=== PATIENT | female | born 1960 | race Caucasian/White ===

== ENCOUNTER 2017-06-24 19:22 | Inpatient (IN) | payer MEDICARE, MEDICAID ==
[2017-06-24 19:23] VITALS: BMI 33.0
[2017-06-24] MEDS ORDERED: Albuterol-Ipratrop 3 mg / 0.5 (3 ml) UD ONE (19:36)
[2017-06-24] MEDS: Albuterol-Ipratrop 3 mg / 0.5 (3 ml) UD IH SCH ×4 (19:47→23:51)
[2017-06-24 19:56] LABS: BASO # 0.03 K/mm3 (0.0-2.0); BASO % 0.2 % (0.0-3.0); EOS % 0.2 % (1.5-5.0); GRAN # 8.75 (1.4-6.5); GRAN % 70.3 % (50.0-68.0); HEMATOCRIT 39.9 % (36.0-48.0); LYMPH # 2.9 (1.2-3.4); LYMPH % 23.2 % (22.0-35.0); MEAN CELL VOLUME 93.4 fl (80.0-105.0); MEAN CORPUSCULAR HEMOGLOBIN 29.7 pg (25.0-35.0); MEAN CORPUSCULAR HGB CONC 31.8 g/dl (31.0-37.0); MEAN PLATELET VOLUME 8.9 fl (7.0-11.0); MONO # 0.8 (0.1-0.6); MONO % 6.1 % (1.0-6.0); RED CELL DISTRIBUTION WIDTH 14.4 % (11.5-14.5); WHITE BLOOD COUNT 12.4 10^3/ul (4.5-11.0)
[2017-06-24 20:04] LABS: ALB/GLOB RATIO 1.3 (1.1-1.8); ALKALINE PHOSPHATASE 72 U/L (38-126); ALT/SGPT 54 U/L (7-56); AST/SGOT 28 U/L (14-36); BILIRUBIN,TOTAL 0.4 mg/dL (0.2-1.3); BLOOD UREA NITROGEN 18 mg/dL (7-21); CALCIUM 9.6 mg/dL (8.4-10.5); CARBON DIOXIDE 25 mmol/L (21-33); CHLORIDE 106 mmol/L (98-107); GFR AFRICAN-AMERICAN > 60; GLUCOSE,RANDOM 137 mg/dL (70-110); MAGNESIUM 1.9 mg/dL (1.7-2.2); POTASSIUM 3.7 mmol/L (3.6-5.0); SODIUM 142 mmol/L (132-148); TOTAL PROTEIN 6.9 g/dL (5.8-8.3)
--- NOTE | 2017-06-24 20:04 | ED PDOC ---
Arrival/HPI - General Chief Complaint: Respiratory Distress Time Seen by Provider: 06/24/17 19:32 Historian: Patient - History of Present Illness Narrative History of Present Illness (Text): 06/24/17 19:45 A 57 year old female, whose past medical history includes asthma, presents to the emergency department complaining of wheezing, shortness of breath, and cough for a few days. Patient states she is experiencing upper back pain with associated dry cough. She denies of any fever, or any other complaints. PMD: Dr. Ramirez Past Medical History - Provider Review Nursing Documentation Reviewed: Yes - Infectious Disease Hx of Infectious Diseases: None - Tetanus Immunization Tetanus Immunization: Unknown - Cardiac Hx Cardiac Disorders: Yes Hx Angina: No Hx Cardiac Arrhythmia: No Hx Congestive Heart Failure: Yes Hx Hypertension: Yes - Pulmonary Hx Respiratory Disorders: Yes Hx Asthma: Yes Hx Sleep Apnea: Yes (CPAP) - Neurological Hx Neurological Disorder: Yes (brain tumor) Hx Dizziness: Yes - HEENT Hx HEENT Disorder: No - Renal Hx Renal Disorder: No - Endocrine/Metabolic Hx Endocrine Disorders: Yes Hx Diabetes Mellitus Type 2: Yes - Hematological/Oncological Hx Blood Disorders: No - Integumentary Hx Dermatological Disorder: No - Musculoskeletal/Rheumatological Hx Musculoskeletal Disorders: Yes (TORN MENISCUS SX) Hx Back Pain: Yes Hx Falls: Yes Hx Herniated Disk: Yes (BULGING DISC L4L5) Hx Osteoarthritis: Yes Hx Unsteady Gait: Yes (CANE WALKER) - Gastrointestinal Hx Gastrointestinal Disorders: Yes (GASTRITIS) - Genitourinary/Gynecological Hx Genitourinary Disorders: No - Psychiatric Hx Psychophysiologic Disorder: Yes Hx Depression: Yes Hx Substance Use: No - Surgical History Hx Cholecystectomy: Yes Hx Hysterectomy: Yes Hx Orthopedic Surgery: Yes (left knee) Other/Comment: bladder - Anesthesia Hx Anesthesia: Yes Hx Anesthesia Reactions: No Hx Malignant Hyperthermia: No - Suicidal Assessment Feels Threatened In Home Enviroment: No Family/Social History - Physician Review Nursing Documentation Reviewed: Yes Family/Social History: No Known Family HX Smoking Status: Current Some Days Smoker Hx Alcohol Use: No Hx Substance Use: No Allergies/Home Meds Allergies/Adverse Reactions: Allergies FISH Allergy (Verified 05/18/16 21:23) RASH strawberry Allergy (Verified 05/18/16 21:23) RASH cranberry Adverse Reaction (Verified 05/18/16 21:23) ITCHING peanut Adverse Reaction (Verified 05/18/16 21:23) RASH Home Medications: Home Meds Medication Instructions Recorded Confirmed Metformin HCl 500 mg PO BID 08/31/13 06/24/17 Simvastatin 40 mg PO DAILY 08/31/13 06/24/17 Acetaminophen/Oxycodone Hydr 1 tab PO Q6 PRN 05/13/16 06/24/17 [Percocet 10/325 mg Tab] Alprazolam [Xanax] 1 tab PO TID 05/13/16 06/24/17 Hydroxyzine Pamoate 50 mg PO PRN PRN 05/13/16 06/24/17 Zolpidem [Ambien] 1 tab PO PRN PRN 05/13/16 06/24/17 Review of Systems - Physician Review All systems were reviewed & negative as marked: Yes - Review of Systems Constitutional: absent: Fevers Respiratory: SOB, Cough (dry cough), Wheezing Musculoskeletal: Back Pain (upper back pain associated with dry cough) Physical Exam Vital Signs Reviewed: Yes Vital Signs Temp Pulse Resp BP Pulse Ox 06/24/17 19:23 98.7 F 98 H 28 H 127/62 100 Temperature: Afebrile Blood Pressure: Normal Pulse: Regular Respiratory Rate: Normal Appearance: Positive for: Well-Appearing Pain Distress: None Mental Status: Positive for: Alert and Oriented X 3 - Systems Exam Head: Present: Atraumatic, Normocephalic Pupils: Present: PERRL Extroacular Muscles: Present: EOMI Conjunctiva: Present: Normal Mouth: Present: Moist Mucous Membranes Neck: Present: Normal Range of Motion Respiratory/Chest: Present: Wheezes (diffused wheezing) Cardiovascular: Present: Regular Rate and Rhythm, Normal S1, S2. No: Murmurs Abdomen: Present: Normal Bowel Sounds. No: Tenderness, Distention, Peritoneal Signs Back: Present: Normal Inspection Upper Extremity: Present: Normal Inspection. No: Cyanosis, Edema Lower Extremity: Present: Normal Inspection. No: Edema Neurological: Present: GCS=15, CN II-XII Intact, Speech Normal Skin: Present: Warm, Dry, Normal Color. No: Rashes Psychiatric: Present: Alert, Oriented x 3, Normal Insight, Normal Concentration Medical Decision Making ED Course and Treatment: 06/24/17 19:51 Impression: 57 year old female with wheezing, shortness of breath, dry cough, and upper back pain associated with dry cough. Plan: -- EKG -- Chest X-ray -- Labs -- Urinalysis -- Duoneb -- Toradol -- Solu-Medrol -- Reassess and disposition Prior Visits: Notes and results from previous visits were reviewed. Patient was last seen in the emergency department on 09/14/2016 for shortness of breath. Patient was d/c home. Progress Notes: EKG: Ordered, reviewed, and independently interpreted the EKG. Rate : 98 BPM Rhythm : NSR Interpretation : No ST-segment elevations or depressions, no T-wave inversions, normal intervals. Comparison : No previous EKG for comparison. 06/24/17 22:08 xr neg as read by me. persistent wheezing, dr baltazar accepts. - Lab Interpretations Lab Results: 06/24/17 19:45 06/24/17 19:45 Lab Results 06/24/17 19:45: Sodium 142, Potassium 3.7, Chloride 106, Carbon Dioxide 25, Anion Gap 15, BUN 18, Creatinine 0.9, Est GFR ( Amer) > 60, Est GFR (Non- Af Amer) > 60, Random Glucose 137 H, Calcium 9.6, Magnesium 1.9, Total Bilirubin 0.4, AST 28, ALT 54, Alkaline Phosphatase 72, Lactate Dehydrogenase 471, Total Creatine Kinase 125, Troponin I < 0.01, Total Protein 6.9, Albumin 3.9, Globulin 3.0, Albumin/Globulin Ratio 1.3 06/24/17 19:45: PT 10.0, INR 0.93, APTT 24.1 06/24/17 19:45: WBC 12.4 H D, RBC 4.27, Hgb 12.7, Hct 39.9, MCV 93.4, MCH 29.7, MCHC 31.8, RDW 14.4, Plt Count 322, MPV 8.9, Gran % 70.3 H, Lymph % (Auto) 23.2 , [place] % (Auto) 6.1 H, Eos % (Auto) 0.2 L, Baso % (Auto) 0.2, Gran # 8.75 H, Lymph # 2.9, [place] # 0.8 H, Eos # 0.0, Baso # 0.03 I have reviewed the lab results: Yes - RAD Interpretation Radiology Orders: 06/24/17 19:36 CHEST PORTABLE [RAD] Stat - Medication Orders Current Medication Orders: Discontinued Medications Albuterol/Ipratropium (Duoneb 3 Mg/0.5 Mg (3 Ml) Ud) 3 ml IH Q15M KANDICE Stop: 06/24/17 20:16 Last Admin: 06/24/17 20:39 Dose: 3 ml Ketorolac Tromethamine (Toradol) 30 mg IVP STAT STA Stop: 06/24/17 19:38 Last Admin: 06/24/17 19:48 Dose: 30 mg MAR Pain Assessment Document 06/24/17 19:48 SC (Rec: 06/24/17 19:48 SC [id number]) Pain Reassessment Is this a pain reassessment? No Sleep Is patient sleeping during reassessment? No Presence of Pain Presence of Pain Yes Pain Scale Used Pain Scale Used Numeric Description Intensity of Pain at present 5 IVP Administration Document 06/24/17 19:48 SC (Rec: 06/24/17 19:48 SC [id number]) Charges for Administration # of IVP Administrations 1 Methylprednisolone (Solu-Medrol) 125 mg IVP STAT STA Stop: 06/24/17 19:38 Last Admin: 06/24/17 19:50 Dose: 125 mg IVP Administration Document 06/24/17 19:50 SC (Rec: 06/24/17 19:50 SC [id number]) Charges for Administration # of IVP Administrations 1 - Scribe Statement The provider has reviewed the documentation as recorded by the Dragan Jamison Provider Scribe Attestation: All medical record entries made by the Dragan were at my direction and personally dictated by me. I have reviewed the chart and agree that the record accurately reflects my personal performance of the history, physical exam, medical decision making, and the department course for this patient. I have also personally directed, reviewed, and agree with the discharge instructions and disposition. Disposition/Present on Arrival - Present on Arrival Any Indicators Present on Arrival: No History of DVT/PE: No History of Uncontrolled Diabetes: No Urinary Catheter: No History of Decub. Ulcer: No History Surgical Site Infection Following: None - Disposition Have Diagnosis and Disposition been Completed?: Yes Diagnosis: Asthma Disposition: HOSPITALIZED Disposition Time: 22:07 Condition: STABLE
[2017-06-24 20:07] LABS: INR 0.93 (0.93-1.08); PARTIAL THROMBOPLASTIN TIME 24.1 Seconds (23.7-30.8)
[2017-06-24 20:19] LABS: TROPONIN I < 0.01 ng/mL
--- NOTE | 2017-06-24 22:26 | CP.PCM.HP ---
<Karl Black - Last Filed: 06/25/17 01:24> History of Present Illness - History of Present Illness History of Present Illness: Chief Complaint Shortness of breath HPI Patient is a 57 year old female with a past medical history of Asthma for which she was intubated in 2014, Chronic Bronchitis, Emphysema, NIDDM, dyslipidemia, [place], brain tumor presents to [facility] on 06/24/17 with complaints of shortness of breath which worsened this evening. Patient states that a week prior she was feeling ill. States that along with shortness of breath, she experienced productive cough with yellow phlegm, sore throat which she states she noted white exudates last week, fevers, chills, nausea, dizziness and weakness. She states that as the week progressed her symptoms also worsened. Patient states that she is not on oxygen at home and takes albuterol for her asthma. Patient denies chest pain, abdominal pain, vomiting, headache. Patient also admits to a baseline cramping of the left calf which has been present for months as well as left breast pain which is being followed up s/p mammography; breast biopsy on at outpatient facility. PMD: Dr. Dumas PSHx: cholecystectomy, hysterectomy, left knee meniscal tear repair, brain tumor excision 2007 Medications: refer to [facility] Allergies: Omeprazole-sob Social Hx: smokes 8 cigarettes daily, social alcohol use, denies illicit drug use Present on Admission - Present on Admission Any Indicators Present on Admission: No Review of Systems - Constitutional Constitutional: Chills, Fever, Malaise, Weakness. absent: Headache - EENT Eyes: absent: Blurred Vision, Change in Vision Ears: absent: Ear Pain, Abnormal Hearing - Breasts Breasts: Pain (left breast) - Cardiovascular Cardiovascular: Dyspnea. absent: Chest Pain - Respiratory Respiratory: Cough, Dyspnea, Wheezing, Excessive Mucous Production (phlegm), Change in Mucous Color (yellow) - Gastrointestinal Gastrointestinal: Nausea. absent: Abdominal Pain, Diarrhea, Vomiting - Genitourinary Genitourinary: absent: Difficulty Urinating, Dysuria - Menstruation Menstruation: Menopausal - Musculoskeletal Musculoskeletal: Arthralgias (left leg) - Neurological Neurological: Dizziness. absent: Headaches - Psychiatric Psychiatric: absent: Anhedonia, Anxiety - Endocrine Endocrine: absent: Fatigue, Palpitations Past Patient History - Infectious Disease Hx of Infectious Diseases: None - Tetanus Immunizations Tetanus Immunization: Unknown - Past Social History Smoking Status: Current Some Days Smoker - CARDIAC Hx Cardiac Disorders: Yes Hx Angina: No Hx Cardia Arrhythmia: No Hx Congestive Heart Failure: Yes Hx Hypertension: Yes - PULMONARY Hx Respiratory Disorders: Yes Hx Asthma: Yes Hx Sleep Apnea: Yes (CPAP) - NEUROLOGICAL Hx Neurological Disorder: Yes (brain tumor) Hx Dizziness: Yes - HEENT Hx HEENT Problems: No - RENAL Hx Chronic Kidney Disease: No - ENDOCRINE/METABOLIC Hx Endocrine Disorders: Yes Hx Diabetes Mellitus Type 2: Yes - HEMATOLOGICAL/ONCOLOGICAL Hx Blood Disorders: No - INTEGUMENTARY Hx Dermatological Problems: No - MUSCULOSKELETAL/RHEUMATOLOGICAL Hx Musculoskeletal Disorders: Yes (TORN MENISCUS SX) Hx Back Pain: Yes Hx Falls: Yes Hx Herniated Disk: Yes (BULGING DISC L4L5) Hx Osteoarthritis: Yes Hx Unsteady Gait: Yes (CANE WALKER) - GASTROINTESTINAL Hx Gastrointestinal Disorders: Yes (GASTRITIS) - GENITOURINARY/GYNECOLOGICAL Hx Genitourinary Disorders: No - PSYCHIATRIC Hx Psychophysiologic Disorder: Yes Hx Depression: Yes Hx Substance Use: No - SURGICAL HISTORY Hx Cholecystectomy: Yes Hx Hysterectomy: Yes Hx Orthopedic Surgery: Yes (left knee) Other/Comment: bladder - ANESTHESIA Hx Anesthesia: Yes Hx Anesthesia Reactions: No Hx Malignant Hyperthermia: No Meds Allergies/Adverse Reactions: Allergies Allergy/AdvReac Type Severity Reaction Status Date / Time FISH Allergy RASH Verified 05/18/16 21:23 strawberry Allergy RASH Verified 05/18/16 21:23 cranberry AdvReac ITCHING Verified 05/18/16 21:23 peanut AdvReac RASH Verified 05/18/16 21:23 Physical Exam - Constitutional Appears: In Acute Distress - Head Exam Head Exam: ATRAUMATIC, NORMAL INSPECTION, NORMOCEPHALIC - Eye Exam Eye Exam: EOMI, Normal appearance - ENT Exam ENT Exam: Mucous Membranes Moist, Normal Exam - Neck Exam Neck exam: Positive for: Normal Inspection - Respiratory Exam Respiratory Exam: Wheezes (b/l upper and lower lobes). absent: Clear to Auscultation Bilateral, NORMAL BREATHING PATTERN - Cardiovascular Exam Cardiovascular Exam: REGULAR RHYTHM, +S1, +S2. absent: Diastolic murmur, Irregular Rhythm, Systolic Murmur - GI/Abdominal Exam GI & Abdominal Exam: Normal Bowel Sounds, Soft - Extremities Exam Extremities exam: Positive for: tenderness (left calf cramps for 2 months) - Back Exam Back exam: NORMAL INSPECTION - Neurological Exam Neurological exam: Alert, CN II-XII Intact, Oriented x3 - Skin Skin Exam: Normal Color, Warm Results - Vital Signs Recent Vital Signs: Last Vital Signs Temp 98.7 F 06/24/17 19:23 Pulse 98 H 06/24/17 19:23 Resp 28 H 06/24/17 19:23 BP 127/62 06/24/17 19:23 Pulse Ox 100 06/24/17 19:23 - Labs Result Diagrams: 06/24/17 19:45 06/24/17 19:45 Assessment & Plan - Assessment and Plan (Free Text) Assessment: Assessment 57 year old female with history of asthma, emphysema, and chronic bronchitis presenting with shortness of breath Plan: Plan 1. Asthma exacerbation - Duonebs - Solu-medrol - NC O2 Cannula - Sputum culture; results pending - CXR; results pending - CBC and CMP for morning labs 2. Acute Bronchitis - WBC count 12.4 - Azithromycin 3. NIDDM - Random glucose 127 - Humalin SC- low - Finger stick q6 4. Left Breast tenderness -Mammography performed prior to ED arrival - F/u visit 06/28 as outpatient <Whit Bird - Last Filed: 06/25/17 01:35> Results - Vital Signs Recent Vital Signs: Last Vital Signs Temp 98.1 F 06/25/17 00:47 Pulse 96 H 06/25/17 00:47 Resp 20 06/25/17 00:47 BP 133/58 L 06/25/17 00:47 Pulse Ox 97 06/24/17 22:17 - Labs Result Diagrams: 06/24/17 19:45 06/24/17 19:45 Labs: Laboratory Results - last 24 hr 06/24/17 22:35 Grp A Beta Strep Ag Negative Attending/Attestation - Attestation I have personally seen and examined this patient.: Yes I have fully participated in the care of the patient.: Yes I have reviewed all pertinent clinical information: Yes Notes (Text): 06/25/17 01:34 Agree with documentation and orders placed.
[2017-06-24] MEDS ORDERED: Azithromycin 500MG/NS 250ml 500 MG/250 ML BAG IVPB STA (23:10)
[2017-06-25] MEDS: Albuterol 0.5% Inhal Sol (2.5 mg/0.5 ml) UD IH SCH ×3 (01:18→19:13)
[2017-06-25] MEDS: Albuterol-Ipratrop 3 mg / 0.5 (3 ml) UD IH SCH (01:20)
[2017-06-25 06:25] LABS: BASO # 0.01 K/mm3 (0.0-2.0); BASO % 0.1 % (0.0-3.0); GRAN # 7.7 (1.4-6.5); GRAN % 89.2 % (50.0-68.0); HEMATOCRIT 38.1 % (36.0-48.0); LYMPH # 0.8 (1.2-3.4); LYMPH % 9.7 % (22.0-35.0); MEAN CELL VOLUME 93.4 fl (80.0-105.0); MEAN CORPUSCULAR HEMOGLOBIN 29.2 pg (25.0-35.0); MEAN CORPUSCULAR HGB CONC 31.2 g/dl (31.0-37.0); MEAN PLATELET VOLUME 8.8 fl (7.0-11.0); MONO # 0.1 (0.1-0.6); RED CELL DISTRIBUTION WIDTH 14.2 % (11.5-14.5); WHITE BLOOD COUNT 8.6 10^3/ul (4.5-11.0)
[2017-06-25 06:52] LABS: ALB/GLOB RATIO 1.3 (1.1-1.8); ALKALINE PHOSPHATASE 69 U/L (38-126); ALT/SGPT 51 U/L (7-56); AST/SGOT 26 U/L (14-36); BILIRUBIN,TOTAL 0.4 mg/dL (0.2-1.3); BLOOD UREA NITROGEN 16 mg/dL (7-21); CALCIUM 9.8 mg/dL (8.4-10.5); CARBON DIOXIDE 26 mmol/L (21-33); CHLORIDE 105 mmol/L (95-110); GFR AFRICAN-AMERICAN > 60; GLUCOSE,RANDOM 262 mg/dL (70-110); POTASSIUM 4.1 mmol/L (3.6-5.0); SODIUM 140 mmol/L (132-148); TOTAL PROTEIN 6.3 g/dL (5.8-8.3)
--- NOTE | 2017-06-25 09:08 | RAD ---
HISTORY: sob COMPARISON: 09/14/2016 FINDINGS: LUNGS: No active pulmonary disease. PLEURA: No significant pleural effusion identified, no pneumothorax apparent. CARDIOVASCULAR: Normal. OSSEOUS STRUCTURES: No significant abnormalities. VISUALIZED UPPER ABDOMEN: Normal. OTHER FINDINGS: None. IMPRESSION: No active disease.
[2017-06-25] MEDS ORDERED: MethylPREDNISolone 40 mg Vial IVP SCH (10:00)
[2017-06-25] MEDS: Insulin Reg-LOW-Coverage SC SCH ×4 (10:56→22:00)
[2017-06-25] MEDS: levoFLOXacin 500 MG TAB PO SCH (14:38)
[2017-06-25] MEDS: MethylPREDNISolone 40 mg Vial IVP SCH (18:36)
[2017-06-25] MEDS: Budesonide 0.25 mg/2 ml Inhal Susp UD IH SCH (19:13)
[2017-06-25 19:55] LABS: URINE BILIRUBIN NEGATIVE (NEGATIVE); URINE BLOOD MODERATE (NEGATIVE); URINE GLUCOSE (UA) NEGATIVE (NEGATIVE); URINE KETONE TRACE mg/dL (NEGATIVE); URINE LEUKOCYTE ESTERASE NEGATIVE Leu/uL (NEGATIVE); URINE PROTEIN NEGATIVE mg/dL (<30 mg/dL); URINE UROBILINOGEN 0.2 E.U./dL (<1 E.U./dL)
[2017-06-25 19:56] LABS: URINE APPEARANCE CLEAR (CLEAR); URINE COLOR YELLOW (YELLOW)
[2017-06-25 20:31] LABS: URINE BACTERIA SMALL (NEG); URINE EPITHELIAL CELLS 0 - 2 /hpf (0-5)
--- NOTE | 2017-06-25 23:03 | CARD ---
APPROVED REPORT EKG Measurement Heart [id number] <Conclusion> Normal sinus rhythm Voltage criteria for left ventricular hypertrophy Cannot rule out Septal infarct, age undetermined Abnormal ECG
[2017-06-26] MEDS: Albuterol 0.5% Inhal Sol (2.5 mg/0.5 ml) UD IH SCH ×4 (06:00→19:38)
[2017-06-26] MEDS: Albuterol 0.083% Inhal Sol (2.5 mg/3 mL) UD INH PRN ×2 (08:15→16:38)
[2017-06-26] MEDS: Budesonide 0.25 mg/2 ml Inhal Susp UD IH SCH ×2 (08:15→19:38)
[2017-06-26] MEDS: levoFLOXacin 500 MG TAB PO SCH (09:05)
[2017-06-26] MEDS: MethylPREDNISolone 40 mg Vial IVP SCH ×2 (09:06→17:16)
[2017-06-26] MEDS: Insulin Reg-LOW-Coverage SC SCH ×4 (09:10→23:02)
--- NOTE | 2017-06-26 10:59 | CP.PCM.PN ---
<TieraCrum Lynne - Last Filed: 06/26/17 11:06> Subjective - Date & Time of Evaluation Date of Evaluation: 06/26/17 Time of Evaluation: 07:56 - Subjective Subjective: Patient seen and examined at bedside. The patient reports feeling better than yesterday. The patient does report some chaffing bilateral groin area. The patient also reports shortness of breath and some wheezing. The patient denies any chest pain, lightheadedness, dizziness, changes in vision, abdominal pain, constipation, or any other complaints. Objective - Vital Signs/Intake and Output Vital Signs (last 24 hours): Temp Pulse Resp BP Pulse Ox 98.2 F 61 18 128/63 61 L 06/26/17 06:00 06/26/17 06:00 06/26/17 06:00 06/26/17 06:00 06/26/17 06:00 Intake and Output: 06/26/17 06/26/17 06:59 18:59 Intake Total 240 Balance 240 - Medications Medications: Current Medications Albuterol Sulfate (Albuterol 0.5% Inhal [place] (2.5 Mg/0.5 Ml) Ud) 2.5 mg IH [id number] [facility] Last Admin: 06/26/17 08:15 Dose: 2.5 mg Albuterol Sulfate (Albuterol 0.083% Inhal [place] (2.5 Mg/3 Ml) Ud) 2.5 mg INH Q2 PRN PRN Reason: Shortness of Breath Last Admin: 06/26/17 08:15 Dose: 2.5 mg Atorvastatin Calcium (Lipitor) 20 mg PO DIN [facility] Last Admin: 06/25/17 18:40 Dose: 20 mg Azithromycin (Zithromax) 500 mg PO DAILY [facility] PRN Reason: Protocol Last Admin: 06/26/17 09:05 Dose: 500 mg Budesonide (Pulmicort Respules) 0.25 mg IH [id number] [facility] Last Admin: 06/26/17 08:15 Dose: 0.25 mg Famotidine (Pepcid) 20 mg IVP DAILY [facility] Last Admin: 06/26/17 09:05 Dose: 20 mg Insulin Human Regular (Humulin R Low) 0 units SC ACHS [facility] PRN Reason: Protocol Last Admin: 06/26/17 09:10 Dose: 2 units Levofloxacin (Levaquin) 500 mg PO DAILY [facility] Last Admin: 06/26/17 09:05 Dose: 500 mg Metformin HCl (Glucophage) 500 mg PO BID [facility] Last Admin: 06/26/17 09:05 Dose: 500 mg Methylprednisolone (Solu-Medrol) 40 mg IVP BID [facility] Last Admin: 06/26/17 09:06 Dose: 40 mg Montelukast Sodium (Singulair) 10 mg PO HS [facility] Last Admin: 06/25/17 21:37 Dose: 10 mg Nystatin (Mycostatin Cream) 1 ea TOP QID [facility] - Labs Labs: 06/25/17 06:15 06/25/17 06:15 PT 10.0 Seconds (9.9-11.8) 06/24/17 19:45 INR 0.93 (0.93-1.08) 06/24/17 19:45 APTT 24.1 Seconds (23.7-30.8) 06/24/17 19:45 - Head Exam Head Exam: ATRAUMATIC, NORMAL INSPECTION, NORMOCEPHALIC - Eye Exam Eye Exam: EOMI, Normal appearance, PERRL. absent: Periorbital tenderness Pupil Exam: NORMAL ACCOMODATION, PERRL. absent: Irregular, Unequal - ENT Exam ENT Exam: Mucous Membranes Moist, Normal Exam, Normal Oropharynx. absent: TM's Normal Bilaterally - Neck Exam Neck Exam: Normal Inspection. absent: Lymphadenopathy, Thyromegaly - Respiratory Exam Respiratory Exam: Rhonchi, Wheezes. absent: Accessory Muscle Use, Chest Wall Tenderness, Clear to Ausculation Bilateral - Cardiovascular Exam Cardiovascular Exam: REGULAR RHYTHM, +S1, +S2 - GI/Abdominal Exam GI & Abdominal Exam: Soft, Normal Bowel Sounds. absent: Tenderness, Hyperactive Bowel Sounds - Extremities Exam Extremities Exam: Full ROM. absent: Joint Swelling, Pedal Edema, Tenderness - Back Exam Back Exam: NORMAL INSPECTION. absent: CVA tenderness (L), CVA tenderness (R), paraspinal tenderness - Neurological Exam Neurological Exam: Alert, Awake, CN II-XII Intact, Normal Gait, Oriented x3 - Psychiatric Exam Psychiatric exam: Normal Affect, Normal Mood - Skin Skin Exam: Dry, Intact, Normal Color. absent: Petechiae, Urticaria Assessment and Plan - Assessment and Plan (Free Text) Assessment: 57 year old female with history of asthma, emphysema, and chronic bronchitis presenting with shortness of breath. Plan: 1. Asthma exacerbation -Continue Duonebs -Continue Solu-medrol -Continue NC O2 Cannula as needed. Patients O2 Sat 96. Will continue to monitor. - Sputum culture; results pending - CXR shows no active disease. - CBC and CMP for morning labs 2. Acute Bronchitis - WBC count 8.6. Trending down. Afebrile - Continue Azithromycin and Levofloxacin 3. NIDDM -Random glucose 228 -Continue Humalin SC- low -Continue Finger stick q6 4. Fungal groin infection -Patient reports new onset chaffing, burning, and redness in the groin area. -Nystatin Cream QID. Will monitor closely. 5. Left Breast tenderness -Mammography performed prior to ED arrival - F/u visit 06/28 as outpatient <Duncan Robertson - Last Filed: 06/26/17 17:49> Objective - Vital Signs/Intake and Output Vital Signs (last 24 hours): Temp Pulse Resp BP Pulse Ox 98.4 F 80 18 96/47 L 61 L 06/26/17 12:00 06/26/17 14:00 06/26/17 12:00 06/26/17 12:00 06/26/17 06:00 Intake and Output: 06/26/17 06/26/17 06:59 18:59 Intake Total 240 Balance 240 - Medications Medications: Current Medications Albuterol Sulfate (Albuterol 0.5% Inhal [place] (2.5 Mg/0.5 Ml) Ud) 2.5 mg IH [id number] [facility] Last Admin: 06/26/17 16:39 Dose: Not Given Albuterol Sulfate (Albuterol 0.083% Inhal [place] (2.5 Mg/3 Ml) Ud) 2.5 mg INH Q2 PRN PRN Reason: Shortness of Breath Last Admin: 06/26/17 16:38 Dose: 2.5 mg Atorvastatin Calcium (Lipitor) 20 mg PO DIN [facility] Last Admin: 06/26/17 17:15 Dose: 20 mg Azithromycin (Zithromax) 500 mg PO DAILY [facility] PRN Reason: Protocol Last Admin: 06/26/17 09:05 Dose: 500 mg Budesonide (Pulmicort Respules) 0.25 mg IH [id number] [facility] Last Admin: 06/26/17 08:15 Dose: 0.25 mg Famotidine (Pepcid) 20 mg IVP DAILY [facility] Last Admin: 06/26/17 09:05 Dose: 20 mg Insulin Human Regular (Humulin R Low) 0 units SC ACHS [facility] PRN Reason: Protocol Last Admin: 06/26/17 17:15 Dose: 3 units Levofloxacin (Levaquin) 500 mg PO DAILY [facility] Last Admin: 06/26/17 09:05 Dose: 500 mg Metformin HCl (Glucophage) 500 mg PO BID [facility] Last Admin: 06/26/17 17:14 Dose: 500 mg Methylprednisolone (Solu-Medrol) 40 mg IVP BID [facility] Last Admin: 06/26/17 17:16 Dose: 40 mg Montelukast Sodium (Singulair) 10 mg PO HS [facility] Last Admin: 06/25/17 21:37 Dose: 10 mg Nystatin (Mycostatin Cream) 1 ea TOP QID [facility] Last Admin: 06/26/17 17:16 Dose: 1 applic - Labs Labs: 06/25/17 06:15 06/25/17 06:15 PT 10.0 Seconds (9.9-11.8) 06/24/17 19:45 INR 0.93 (0.93-1.08) 06/24/17 19:45 APTT 24.1 Seconds (23.7-30.8) 06/24/17 19:45 Attending/Attestation - Attestation I have personally seen and examined this patient.: Yes I have fully participated in the care of the patient.: Yes I have reviewed all pertinent clinical information, including history, physical exam and plan: Yes Notes (Text): 06/26/17 17:40 Patient was seen and examined with medical auditor. Agreed with resident assessment and plan. 57 year old female with acute asthama exacerbation, improving, still wheezing, we will continue IV steroid, Nebulization If she keep improving, we will switch to oral prednisone. Breast mammogram as out patient showed suspicious finding in left out quadrant , patient will need further evaluation of mass including Breast USG/biopsy as out patient. Management plan was discussed in detail with patient Education was provided. 06/26/17 17:48
[2017-06-26] MEDS: Nystatin 100,000 Units/gm Cream(15 gm) TOP SCH ×4 (11:00→22:28)
--- NOTE | 2017-06-26 23:03 | CARD ---
APPROVED REPORT EKG Measurement Heart [id number] [id number] <Conclusion> Normal sinus rhythm with sinus arrhythmia Minimal voltage criteria for LVH, may be normal variant Borderline ECG
[2017-06-27] MEDS: Albuterol 0.5% Inhal Sol (2.5 mg/0.5 ml) UD IH SCH ×3 (01:12→15:18)
[2017-06-27 07:22] LABS: BASO # 0.01 K/mm3 (0.0-2.0); BASO % 0.1 % (0.0-3.0); GRAN # 13.16 (1.4-6.5); GRAN % 78.7 % (50.0-68.0); HEMATOCRIT 39.8 % (36.0-48.0); LYMPH # 2.7 (1.2-3.4); MEAN CELL VOLUME 93.2 fl (80.0-105.0); MEAN CORPUSCULAR HEMOGLOBIN 29.5 pg (25.0-35.0); MEAN CORPUSCULAR HGB CONC 31.7 g/dl (31.0-37.0); MEAN PLATELET VOLUME 8.7 fl (7.0-11.0); MONO # 0.9 (0.1-0.6); MONO % 5.2 % (1.0-6.0); RED CELL DISTRIBUTION WIDTH 13.9 % (11.5-14.5); WHITE BLOOD COUNT 16.7 10^3/ul (4.5-11.0)
[2017-06-27 07:34] LABS: ALB/GLOB RATIO 1.3 (1.1-1.8); ALKALINE PHOSPHATASE 68 U/L (38-126); ALT/SGPT 51 U/L (7-56); AST/SGOT 21 U/L (14-36); BILIRUBIN,TOTAL 0.3 mg/dL (0.2-1.3); BLOOD UREA NITROGEN 21 mg/dL (7-21); CALCIUM 9.8 mg/dL (8.4-10.5); CARBON DIOXIDE 30 mmol/L (21-33); CHLORIDE 102 mmol/L (98-107); GFR AFRICAN-AMERICAN > 60; GLUCOSE,RANDOM 178 mg/dL (70-110); SODIUM 141 mmol/L (132-148); TOTAL PROTEIN 6.7 g/dL (5.8-8.3)
[2017-06-27] MEDS: Insulin Reg-LOW-Coverage SC SCH ×3 (08:15→17:04)
[2017-06-27] MEDS: Nystatin 100,000 Units/gm Cream(15 gm) TOP SCH ×3 (09:00→17:06)
[2017-06-27] MEDS: MethylPREDNISolone 40 mg Vial IVP SCH ×2 (09:20→17:04)
[2017-06-27] MEDS: levoFLOXacin 500 MG TAB PO SCH (09:20)
[2017-06-27] MEDS ORDERED: Benzocaine/Menthol (Cepacol) Lozenge MT PRN (09:33)
[2017-06-27] MEDS: Budesonide 0.25 mg/2 ml Inhal Susp UD IH SCH (09:49)
[2017-06-27 11:29] VITALS: RESP 18
--- NOTE | 2017-06-27 12:31 | CP.PCM.PCO ---
Physician Communication Note - Physician Communication Note Physician Communication Note: Please give education to patient (How to use inhaler)before DC
[2017-06-27 16:48] VITALS: BP 120/92; PULSE 100; TEMP 98.3; O2SAT 98
== END 2017-06-27 18:25 | disposition home or self-care (01) | DRG 192 ==
LOC: ED 19:22 → ERH 20:57 → 2RSO 06-25 00:22
PROVIDERS: ADMIT Internal Medicine; ATTEND Internal Medicine
DX: J44.0 Chronic obstructive pulmonary disease with (acute) lower respiratory infection (principal); J20.9 Acute bronchitis, unspecified; I11.0 Hypertensive heart disease with heart failure; I50.9 Heart failure, unspecified; E11.9 Type 2 diabetes mellitus without complications; E78.5 Hyperlipidemia, unspecified; F17.210 Nicotine dependence, cigarettes, uncomplicated; G47.30 Sleep apnea, unspecified; I25.2 Old myocardial infarction; Z79.84 Long term (current) use of oral hypoglycemic drugs

== ENCOUNTER 2018-03-20 21:40 | Inpatient (IN) | payer MEDICARE, MEDICAID ==
--- NOTE | 2018-03-20 22:18 | ED PDOC ---
Arrival/HPI - General Chief Complaint: Respiratory Distress Time Seen by Provider: 03/20/18 21:42 Historian: Patient - History of Present Illness Narrative History of Present Illness (Text): 03/20/18 22:16 Ora Holley is a 58 year old female, whose past medical history includes metastatic stage 4 breast cancer s/p bilateral mastectomy with left axillary node dissection and asthma, who presents to the Emergency department brought in by EMS complaining of shortness of breath and chest pain. Patient states she began experiencing chest pain with associated shortness of breath, generalized weakness, and dizziness earlier today. Patient states she had 3 witnessed syncopal episodes at home and came in for further evaluation. Patient denies any fever, chills, nausea, vomiting, back pain, neck pain, headache, or any other complaints. Symptom Onset: Gradual Symptom Course: Unchanged Activities at Onset: Light Context: Home Past Medical History - Provider Review Nursing Documentation Reviewed: Yes - Infectious Disease Hx of Infectious Diseases: None - Tetanus Immunization Tetanus Immunization: Unknown - Cardiac Hx Angina: No Hx Cardiac Arrhythmia: No - Pulmonary Hx Respiratory Disorders: Yes Hx Asthma: Yes Hx Bronchitis: Yes Hx Emphysema: Yes Hx Sleep Apnea: Yes (CPAP) - Neurological Hx Neurological Disorder: Yes (brain tumor) Hx Dementia: Yes Hx Dizziness: Yes Other/Comment: "SMALL BRAIN TUMOR-NO SURGERY" - HEENT Hx HEENT Disorder: No - Renal Hx Renal Failure: Yes - Endocrine/Metabolic Hx Diabetes Mellitus Type 2: Yes - Hematological/Oncological Hx Blood Disorders: No Hx Cancer: Yes (LEFT BREAST) Hx Chemotherapy: No - Integumentary Hx Dermatological Disorder: No Other/Comment: HX: LEFT BREAST CANCER - Musculoskeletal/Rheumatological Hx Musculoskeletal Disorders: Yes (TORN MENISCUS SX) Hx Back Pain: Yes Hx Falls: No Hx Herniated Disk: Yes (BULGING DISC L4L5) Hx Osteoarthritis: Yes Hx Unsteady Gait: Yes (CANE WALKER) - Gastrointestinal Hx Gastrointestinal Disorders: Yes (GASTRITIS) Hx Gastritis: Yes HX Swallowing Problems: Yes - Genitourinary/Gynecological Hx Genitourinary Disorders: No - Psychiatric Hx Emotional Abuse: No Hx Physical Abuse: No Hx Substance Use: No - Surgical History Hx Arthroscopy: Yes (ARTHROSCOPIC SURGERY LEFT KNEE) Hx Cholecystectomy: Yes Hx Hysterectomy: Yes Hx Orthopedic Surgery: Yes (left knee) Other/Comment: bladder - Anesthesia Hx Anesthesia: Yes Hx Anesthesia Reactions: No Hx Malignant Hyperthermia: No - Suicidal Assessment Feels Threatened In Home Enviroment: No Family/Social History - Physician Review Nursing Documentation Reviewed: Yes Family/Social History: Unknown Family HX Smoking Status: Former Smoker Hx Alcohol Use: No Hx Substance Use: No Allergies/Home Meds Allergies/Adverse Reactions: Allergies FISH Allergy (Verified 05/18/16 21:23) RASH strawberry Allergy (Verified 05/18/16 21:23) RASH cranberry Adverse Reaction (Verified 05/18/16 21:23) ITCHING peanut Adverse Reaction (Verified 05/18/16 21:23) RASH Home Medications: Home Meds Medication Instructions Recorded Confirmed Metformin HCl 500 mg PO BID 08/31/13 03/20/18 Simvastatin 40 mg PO DAILY 08/31/13 03/20/18 Alprazolam [Xanax] 2 mg PO TID PRN 05/13/16 03/20/18 Zolpidem [Ambien] 10 mg PO HS PRN 05/13/16 03/20/18 Albuterol Sulfate [Proair Hfa] 2 puff IH PRN PRN 07/26/17 03/20/18 Montelukast Sodium [Singulair] 10 mg PO HS 07/26/17 03/20/18 Review of Systems - Physician Review All systems were reviewed & negative as marked: Yes - Review of Systems Constitutional: Other (+generalized weakness). absent: Fevers Eyes: Normal ENT: Normal Respiratory: SOB Cardiovascular: Chest Pain, Syncope Gastrointestinal: Normal. absent: Abdominal Pain, Diarrhea, Nausea, Vomiting Genitourinary Female: Normal. absent: Dysuria, Frequency, Hematuria, Urine Output Changes Musculoskeletal: Normal. absent: Back Pain, Neck Pain Skin: Normal. absent: Rash Neurological: Dizziness Endocrine: Normal Hemo/Lymphatic: Normal Psychiatric: Normal Physical Exam Vital Signs Reviewed: Yes Vital Signs Temp Pulse Resp BP Pulse Ox 03/20/18 21:56 99.4 F 91 H 18 128/61 97 Temperature: Afebrile Blood Pressure: Normal Pulse: Regular Respiratory Rate: Normal Appearance: Positive for: Well-Appearing, Non-Toxic Pain Distress: None Mental Status: Positive for: Alert and Oriented X 3 - Systems Exam Head: Present: Atraumatic, Normocephalic Pupils: Present: PERRL Extroacular Muscles: Present: EOMI Conjunctiva: Present: Normal Mouth: Present: Moist Mucous Membranes Neck: Present: Normal Range of Motion Respiratory/Chest: Present: Clear to Auscultation, Good Air Exchange. No: Respiratory Distress, Accessory Muscle Use Cardiovascular: Present: Regular Rate and Rhythm, Normal S1, S2. No: Murmurs Abdomen: No: Tenderness, Distention, Peritoneal Signs Back: Present: Normal Inspection Upper Extremity: Present: Normal Inspection. No: Cyanosis, Edema Lower Extremity: Present: Normal Inspection. No: Edema Neurological: Present: GCS=15, CN II-XII Intact, Speech Normal Skin: Present: Warm, Dry, Normal Color. No: Rashes Psychiatric: Present: Alert, Oriented x 3, Normal Insight, Normal Concentration Medical Decision Making ED Course and Treatment: 03/20/18 22:16 Impression: 58 year old female presents for chest pain, shortness of breath, generalized weakness, and dizziness. Plan: -- CTA Chest -- CT Head w/o contrast -- EKG -- Chest X-ray -- Labs, cardiace enzymes -- Reassess and disposition Prior Visits: Notes and results from previous visits were reviewed. Progress Notes: Reviewed EKG, NSR at 88 bpm. Septal infarct. Non-specific ST/T wave changes. 03/21/18 03:21 Chest X-ray reviewed, shows no acute processes. 03/21/18 05:22 CT Head shows: Brain: Unremarkable. No hemorrhage. No significant white matter disease. No edema. Ventricles: Unremarkable. No ventriculomegaly. Bones/joints: Unremarkable. No acute fracture. Soft tissues: Unremarkable. Sinuses: Opacified left ethmoid air cell noted. Remaining visualized paranasal sinuses clear. Mastoid air cells: Unremarkable as visualized. No mastoid effusion. IMPRESSION: No acute intracranial findings. No significant interval change compared to prior study dated September 04, 2015. 03/21/18 05:22 CTA Chest shows: Pulmonary arteries: Unremarkable. No pulmonary embolism. Aorta: Mild atherosclerosis of the thoracic aorta. No thoracic aortic aneurysm. Lungs: Mild bibasilar dependent atelectasis. No mass. Pleural space: Unremarkable. No significant effusion. No pneumothorax. Heart: Unremarkable. No cardiomegaly. No significant pericardial effusion. No evidence of RV dysfunction. Bones/joints: Multilevel degenerative changes. No acute fracture. No dislocation. Soft tissues: Unremarkable. Lymph nodes: Unremarkable. No enlarged lymph nodes. Liver: Mildly enlarged fatty liver. IMPRESSION: 1. No acute findings. No evidence of pulmonary embolism. 2. Additional chronic/incidental findings as described above. 03/21/18 05:26 Case discussed with medical esthetician application integration specialist, who is aware and agrees with plan. 03/21/18 05:[address] Meade, who is aware and agrees with plan. Accepts pt in to hospitalist service. Pt will go to Telemetry observation for syncope and chest pain. - Lab Interpretations Lab Results: 03/20/18 22:53 03/20/18 22:53 Lab Results 03/20/18 22:53: WBC 5.3 D, RBC 4.37, Hgb 12.5, Hct 39.1, MCV 89.5 D, MCH 28.6 , MCHC 32.0, RDW 13.3, Plt Count 333, MPV 9.0 03/20/18 22:53: Sodium 144, Potassium 3.8, Chloride 108 H, Carbon Dioxide 23, Anion Gap 16, BUN 14, Creatinine 0.6 L, Est GFR ( Amer) > 60, Est GFR ( Non-Af Amer) > 60, Random Glucose 127 H, Calcium 9.5, Total Bilirubin 0.4, AST 25, ALT 29, Alkaline Phosphatase 78, Lactate Dehydrogenase 492, Total Creatine Kinase 84, Troponin I < 0.01, Total Protein 7.3, Albumin 4.0, Globulin 3.3, Albumin/Globulin Ratio 1.2 03/20/18 22:53: PT 10.4, INR 0.91 L, APTT 31.1 I have reviewed the lab results: Yes - RAD Interpretation Radiology Orders: 03/20/18 22:18 CHEST PORTABLE [RAD] Stat 03/20/18 22:19 HEAD W/O CONTRAST [CT] Stat 03/20/18 22:20 ANGIO CHEST PE PROTOCOL [CT] Stat Physical Therapy Nurse: ED Physician, Radiologist - EKG Interpretation Interpreted by ED Physician: Yes Type: 12 lead EKG - Medication Orders Current Medication Orders: Discontinued Medications Albuterol/Ipratropium (Duoneb 3 Mg/0.5 Mg (3 Ml) Ud) 3 ml IH ONCE STA Stop: 03/21/18 00:54 Last Admin: 03/21/18 01:12 Dose: 3 ml - Scribe Statement The provider has reviewed the documentation as recorded by the Dragan Boyle Provider Scribe Attestation: All medical record entries made by the Scribe were at my direction and personally dictated by me. I have reviewed the chart and agree that the record accurately reflects my personal performance of the history, physical exam, medical decision making, and the department course for this patient. I have also personally directed, reviewed, and agree with the discharge instructions and disposition. Disposition/Present on Arrival - Present on Arrival Any Indicators Present on Arrival: No History of DVT/PE: No History of Uncontrolled Diabetes: No Urinary Catheter: No History of Decub. Ulcer: No History Surgical Site Infection Following: None - Disposition Have Diagnosis and Disposition been Completed?: Yes Diagnosis: Syncope, Chest pain Disposition: HOSPITALIZED Disposition Time: 05:32 Condition: STABLE Discharge Instructions (ExitCare): Syncope (ED), Chest Pain (ED) Referrals: Roberta Dumas MD [Primary Care Provider] - Follow up with primary Forms: [employer] (Setswana)
[2018-03-20 23:43] LABS: HEMOGLOBIN 12.5 g/dL (12.0-16.0); MEAN CELL VOLUME 89.5 fl (80.0-105.0); MEAN CORPUSCULAR HEMOGLOBIN 28.6 pg (25.0-35.0); RBC 4.37 10^6/uL (3.5-6.1); RED CELL DISTRIBUTION WIDTH 13.3 % (11.5-14.5); WHITE BLOOD COUNT 5.3 10^3/ul (4.5-11.0)
[2018-03-20 23:53] LABS: INR 0.91 (0.93-1.08); PARTIAL THROMBOPLASTIN TIME 31.1 Seconds (25.1-36.5); PROTHROMBIN TIME 10.4 SECONDS (9.4-12.5)
[2018-03-21 00:31] LABS: ALB/GLOB RATIO 1.2 (1.1-1.8); ALT/SGPT 29 U/L (7-56); AST/SGOT 25 U/L (14-36); BLOOD UREA NITROGEN 14 mg/dL (7-21); CALCIUM 9.5 mg/dL (8.4-10.5); GFR AFRICAN-AMERICAN > 60; GFR NON-AFRICAN AMERICAN > 60
[2018-03-21 00:43] LABS: TROPONIN I < 0.01 ng/mL
[2018-03-21] MEDS ORDERED: Albuterol-Ipratrop 3 mg / 0.5 (3 ml) UD IH STA (00:53)
[2018-03-21] MEDS ORDERED: Iodixanol 320 MG/ML 100 ML BOTTLE IV ONE (01:44)
[2018-03-21] MEDS ORDERED: Albuterol-Ipratrop 3 mg / 0.5 (3 ml) UD IH PRN (05:50)
--- NOTE | 2018-03-21 06:47 | CP.PCM.HP ---
History of Present Illness - History of Present Illness History of Present Illness: CC: Falling and cough Ms. Holley is a 58 year old female with PMH of breast cancer stage IV diagnosed in June 2017 s/p arvind mastectomy and radiation, emphysema, DM2 who presents with worsening SOB and CP for the last 3 days. She also admits to at least 3 syncopal episodes over the past few days which her family witnessed. She fell on the floor and hit her head more than once. She endorses a worsening cough productive of yellow sputum over the past 3 days but denies fever/chills, abdominal pain, nausea/vomiting/diarrhea. She does not use home oxygen and states she is not short of breath normally. Patient follows with oncologist and her cancer is currently in remission. Past medical history: Stage IV breast cancer, emphysema, DM2 Past surgical history: b/l mastectomy with radiation treatment Allergies: food allergies to fish, strawberries, peanuts, NKDA Soc History: former everyday smoker, quit more than 10 years ago, denies alcohol or drug use. Currently lives with her family and has a good support system Family History: non contributory Home medications: see EMR, call pharmacy to confirm Present on Admission - Present on Admission Any Indicators Present on Admission: No History of DVT/PE: No History of Uncontrolled Diabetes: No Urinary Catheter: No Decubitus Ulcer Present: No Review of Systems - Review of Systems Review of Systems: A 12 point ROS was reviewed with the patient and was negative except as stated in the HPI Past Patient History - Infectious Disease Hx of Infectious Diseases: None - Tetanus Immunizations Tetanus Immunization: Unknown - Past Medical History & Family History Past Medical History?: Yes Pertinent Family History: Mother recently from cancer - Past Social History Smoking Status: Former Smoker Alcohol: None Drugs: Denies Home Situation {Lives}: With Family - CARDIAC Hx Angina: No Hx Cardia Arrhythmia: No - PULMONARY Hx Respiratory Disorders: Yes Hx Asthma: Yes Hx Bronchitis: Yes Hx Emphysema: Yes Hx Sleep Apnea: Yes (CPAP) - NEUROLOGICAL Hx Neurological Disorder: Yes (brain tumor) Hx Dementia: Yes Hx Dizziness: Yes Other/Comment: "SMALL BRAIN TUMOR-NO SURGERY" - HEENT Hx HEENT Problems: No - RENAL Hx Renal Failure: Yes - ENDOCRINE/METABOLIC Hx Diabetes Mellitus Type 2: Yes - HEMATOLOGICAL/ONCOLOGICAL Hx Blood Disorders: No Hx Cancer: Yes (LEFT BREAST) Hx Chemotherapy: No - INTEGUMENTARY Hx Dermatological Problems: No Other/Comment: HX: LEFT BREAST CANCER - MUSCULOSKELETAL/RHEUMATOLOGICAL Hx Musculoskeletal Disorders: Yes (TORN MENISCUS SX) Hx Back Pain: Yes Hx Falls: No Hx Herniated Disk: Yes (BULGING DISC L4L5) Hx Osteoarthritis: Yes Hx Unsteady Gait: Yes (CANE WALKER) - GASTROINTESTINAL Hx Gastrointestinal Disorders: Yes (GASTRITIS) Hx Gastritis: Yes HX Swallowing Problems: Yes - GENITOURINARY/GYNECOLOGICAL Hx Genitourinary Disorders: No - PSYCHIATRIC Hx Emotional Abuse: No Hx Physical Abuse: No Hx Substance Use: No - SURGICAL HISTORY Hx Arthroscopy: Yes (ARTHROSCOPIC SURGERY LEFT KNEE) Hx Cholecystectomy: Yes Hx Hysterectomy: Yes Hx Orthopedic Surgery: Yes (left knee) Other/Comment: bladder - ANESTHESIA Hx Anesthesia: Yes Hx Anesthesia Reactions: No Hx Malignant Hyperthermia: No Meds Allergies/Adverse Reactions: Allergies Allergy/AdvReac Type Severity Reaction Status Date / Time FISH Allergy RASH Verified 05/18/16 21:23 strawberry Allergy RASH Verified 05/18/16 21:23 cranberry AdvReac ITCHING Verified 05/18/16 21:23 peanut AdvReac RASH Verified 05/18/16 21:23 Physical Exam - Constitutional Appears: Other (in moderate distress, anxious appearing) - Head Exam Head Exam: ATRAUMATIC, NORMAL INSPECTION, NORMOCEPHALIC - Eye Exam Eye Exam: Normal appearance - ENT Exam ENT Exam: Normal Exam - Neck Exam Neck exam: Positive for: Normal Inspection - Respiratory Exam Respiratory Exam: Accessory Muscle Use, Chest Wall Tenderness, Prolonged Expiratory Phase, Wheezes, Respiratory Distress. absent: Rales, Rhonchi, Stridor - Cardiovascular Exam Cardiovascular Exam: RRR, +S1, +S2. absent: Diastolic murmur, Gallop, JVD, Rubs , Systolic Murmur - GI/Abdominal Exam GI & Abdominal Exam: Normal Bowel Sounds, Soft. absent: Guarding, Mass, Organomegaly, Rebound - Extremities Exam Extremities exam: Positive for: normal inspection. Negative for: calf tenderness, joint swelling, pedal edema, tenderness - Neurological Exam Neurological exam: Alert, Oriented x3 - Psychiatric Exam Psychiatric exam: Anxious - Skin Skin Exam: Dry, Intact, Normal Color Results - Vital Signs Recent Vital Signs: Last Vital Signs Temp 99.4 F 03/20/18 21:56 Pulse 88 03/21/18 03:40 Resp 18 03/21/18 03:40 BP 134/76 03/21/18 03:40 Pulse Ox 100 03/21/18 03:40 - Labs Result Diagrams: 03/20/18 22:53 03/20/18 22:53 - EKG Data EKG Interpreted by: Myself EKG shows normal: Sinus rhythm Rate: Normal - EKG Data When Compared to Previous EKG: No Significant Change Assessment & Plan - Assessment and Plan (Free Text) Assessment: Ms. Holley is a 58 year old female with PMH of breast cancer stage IV, emphysema , DM2 with worsening SOB and CP and cough productive of yellowish sputum. This is most likely secondary to an acute emphysema exacerbation but cardiac and syncope workups are needed as well. Plan: 1. Worsening SOB and cough-Likely due to COPD Exacerbation r/o PNA and CHF, radiation induced pulm fibrosis - less likely lung met - patient saturating well on room air - will obtain baseline abg - nasal cannula prn -Duo nebs 3mL IH Q6hrs and prn -solumedrol 40mg IVP Q8h -Levaquin 750mg IVPB daily -Continue singulair - robittusin prn for cough -CTA chest in ED negative for PE -Will order pro-BNP and Echo to r/o CHF -CT chest and CXR with no signs of consolidation but will order procalcitonin 2. Chest pain -Likely pleuritic but r/o ACS -Initial trop in ED negative, continue to trend -No significant EKG changes -BNP for CHF r/o -Nitroglycerin 0.4 mg sublingual for relief of CP -Cardiology consulted 3. Syncopal Episodes/falls -CT head and CTA chest negative for trauma -Echo -Carotid US b/l -Orthostatic VS -Neurology consulted - hold off fluid pending echo 4. DM2 -Hold metformin -Insulin sliding scale -Fingerstick ACHS -Moderate carbohydrate diet 5-DVT Prophylaxis: Lovenox sc GI Prophylaxis Protonix PO [address] Meade attending - Date & Time Date: 03/21/18 Time: 06:30
[2018-03-21] MEDS: Pantoprazole 40 mg EC Tab PO SCH (06:49)
[2018-03-21] MEDS: MethylPREDNISolone 40 mg Vial IVP SCH ×3 (06:49→22:06)
[2018-03-21] MEDS ORDERED: guaiFENesin DM 200 mg-20 mg/10 ml UD PO PRN (06:54)
[2018-03-21 07:26] LABS: ARTERIAL BLOOD GAS HCO3 23.5 mmol/L (21-28); ARTERIAL BLOOD GAS O2 SAT 99.4 % (95-98); ARTERIAL BLOOD GAS PCO2 38 mm/Hg (35-45); ARTERIAL BLOOD GAS TCO2 24.7 mmol.L (22-28)
[2018-03-21] MEDS ORDERED: Potassium Chloride 20 mEq ER Tab PO STA (07:34)
--- NOTE | 2018-03-21 07:51 | CT ---
PROCEDURE: CT HEAD WITHOUT CONTRAST. HISTORY: syncope COMPARISON: 09/04/2015 TECHNIQUE: Axial computed tomography images were obtained through the head/brain without intravenous contrast. Radiation dose: Total exam DLP = 911.69 mGy-cm. This CT exam was performed using one or more of the following dose reduction techniques: Automated exposure control, adjustment of the mA and/or kV according to patient size, and/or use of iterative reconstruction technique. FINDINGS: HEMORRHAGE: No intracranial hemorrhage. BRAIN: No mass effect or edema. No atrophy or chronic microvascular ischemic changes. VENTRICLES: Unremarkable. No hydrocephalus. CALVARIUM: Unremarkable. PARANASAL SINUSES: Unremarkable as visualized. No significant inflammatory changes. MASTOID AIR CELLS: Unremarkable as visualized. No inflammatory changes. OTHER FINDINGS: None. IMPRESSION: No acute intracranial abnormalities. No significant findings to account for the clinical presentation. No significant interval change compared to the prior examination(s). Concordant results (preliminary interpretation) provided by [facility]. Procedure Completed: 03:11 Preliminary ([facility]) Report: Dictated and Authenticated: 05:14 Final Interpretation: 07:49
[2018-03-21] MEDS: Albuterol-Ipratrop 3 mg / 0.5 (3 ml) UD IH SCH ×3 (08:05→19:38)
[2018-03-21] MEDS: Insulin Lispro (humaLOG) LOW Coverage SC SCH ×4 (08:06→21:37)
[2018-03-21 08:39] LABS: BASO # 0.02 K/mm3 (0.0-2.0); BASO % 0.4 % (0.0-3.0); EOS # 0.2 (0.0-0.7); EOS % 3.9 % (1.5-5.0); GRAN # 2.7 (1.4-6.5); GRAN % 55.1 % (50.0-68.0); HEMOGLOBIN 11.6 g/dL (12.0-16.0); LYMPH # 1.7 (1.2-3.4); LYMPH % 33.9 % (22.0-35.0); MEAN CELL VOLUME 88.7 fl (80.0-105.0); MEAN CORPUSCULAR HEMOGLOBIN 28.5 pg (25.0-35.0); MEAN CORPUSCULAR HGB CONC 32.1 g/dl (31.0-37.0); MEAN PLATELET VOLUME 8.9 fl (7.0-11.0); MONO # 0.3 (0.1-0.6); MONO % 6.7 % (1.0-6.0); RBC 4.07 10^6/uL (3.5-6.1); RED CELL DISTRIBUTION WIDTH 13.2 % (11.5-14.5); WHITE BLOOD COUNT 4.9 10^3/ul (4.5-11.0)
[2018-03-21 08:42] LABS: ALB/GLOB RATIO 1.3 (1.1-1.8); ALBUMIN 3.9 g/dL (3.0-4.8); ALT/SGPT 25 U/L (7-56); AST/SGOT 26 U/L (14-36); BLOOD UREA NITROGEN 12 mg/dL (7-21); CALCIUM 9.1 mg/dL (8.4-10.5); GFR AFRICAN-AMERICAN > 60; GFR NON-AFRICAN AMERICAN > 60
[2018-03-21 08:50] LABS: B-TYPE NATRIURETIC PEPTIDE 24.8 pg/mL (0-450)
--- NOTE | 2018-03-21 09:05 | US ---
PROCEDURE: Bilateral carotid artery duplex ultrasound HISTORY: Carotid stenosis syncope PHYSICIAN(S): Jude Shah MD. TECHNIQUE: Duplex sonography and color-flow Doppler were used to evaluate the carotid bifurcations and limited segments of the vertebral arteries bilaterally. FINDINGS: There is mild smooth hypoechoic plaque noted at the carotid bifurcations bilaterally. The peak systolic velocity in the proximal right internal carotid artery is 71 cm/sec. This corresponds to a 0-19 percent proximal right ICA stenosis. Normal systolic velocities are noted in the proximal right external carotid artery. There is antegrade flow in the right vertebral artery. The peak systolic velocity in the proximal left internal carotid artery is 82 cm/sec. This corresponds to a 0-19 percent proximal left ICA stenosis. Normal systolic velocities are noted in the proximal left external carotid artery. There is antegrade flow in the dominant left vertebral artery. IMPRESSION: 1. Bilateral 0-19 percent proximal ICA stenoses. 2. Antegrade flow in both vertebral arteries.
[2018-03-21] MEDS ORDERED: Oxycodone/Acetaminophen 5/325 mg Tab PO STA (09:31)
--- NOTE | 2018-03-21 09:43 | CT ---
PROCEDURE: CT Chest with contrast (Pulmonary Angiogram) HISTORY: sob COMPARISON: None available. TECHNIQUE: Axial computed tomography images were obtained of the chest in the pulmonary arterial phase of enhancement. Coronal and sagittal reformatted images were created and reviewed. Intravenous contrast dose: 100 cc Omnipaque 350. Mean Hounsfield unit values in the main pulmonary artery: 300.22 Radiation dose: Total exam DLP = 516.17 mGy-cm. This CT exam was performed using one or more of the following dose reduction techniques: Automated exposure control, adjustment of the mA and/or kV according to patient size, and/or use of iterative reconstruction technique. FINDINGS: PULMONARY ARTERIES: Unremarkable. No pulmonary embolism. AORTA: No acute findings. No thoracic aortic aneurysm. LUNGS: Unremarkable. No nodule, mass or pulmonary consolidation. PLEURAL SPACES: Unremarkable. No effusion or pneuomothorax. HEART: Unremarkable. No cardiomegaly. No significant pericardial effusion. LYMPH NODES: No lymphadenopathy. BONES, CHEST WALL: Unremarkable. No fracture or destructive lesion OTHER FINDINGS: Unremarkable. IMPRESSION: No acute findings related to/accounting for the clinical presentation. Concordant results (preliminary interpretation) provided by [facility]. Procedure Completed: 03:17 Preliminary ([facility]) Report: Dictated and Authenticated: 05:07 Final Interpretation: 09:41
[2018-03-21] MEDS: levoFLOXacin 750 mg in D5W 150 ML BAG IVPB SCH (09:52)
[2018-03-21] MEDS: Enoxaparin 40 mg Syringe SC SCH (09:52)
[2018-03-21] MEDS ORDERED: Enoxaparin 30 mg Syringe SC SCH (10:00)
[2018-03-21] MEDS ORDERED: Iodixanol 320 mg/ml 150 ml Bottle IV ONE (11:02)
--- NOTE | 2018-03-21 11:04 | CP.PCM.CON ---
<Darrin Clements - Last Filed: 03/21/18 16:28> Meds Allergies/Adverse Reactions: Allergies Allergy/AdvReac Type Severity Reaction Status Date / Time FISH Allergy RASH Verified 05/18/16 21:23 strawberry Allergy RASH Verified 05/18/16 21:23 cranberry AdvReac ITCHING Verified 05/18/16 21:23 peanut AdvReac RASH Verified 05/18/16 21:23 - Medications Medications: Current Medications Acetaminophen (Tylenol 325mg Tab) 650 mg PO Q6H PRN PRN Reason: Fever >100.4 F Albuterol/Ipratropium (Duoneb 3 Mg/0.5 Mg (3 Ml) Ud) 3 ml IH Q2H PRN PRN Reason: Shortness of Breath Last Admin: 03/21/18 06:50 Dose: 3 ml Albuterol/Ipratropium (Duoneb 3 Mg/0.5 Mg (3 Ml) Ud) 3 ml IH [id number] [facility] Last Admin: 03/21/18 13:49 Dose: Not Given Aspirin (Aspirin Chewable) 81 mg PO DAILY [facility] Last Admin: 03/21/18 09:52 Dose: Not Given Enoxaparin Sodium (Lovenox) 40 mg SC DAILY [facility] PRN Reason: Protocol Last Admin: 03/21/18 09:52 Dose: 40 mg Guaifenesin/Dextromethorphan (Robitussin Dm) 10 ml PO Q4H PRN PRN Reason: Cough Insulin Human Lispro (Humalog Low) 0 units SC ACHS [facility] PRN Reason: Protocol Last Admin: 03/21/18 12:27 Dose: 2 units Levofloxacin/Dextrose (Levaquin 750mg) 750 mg IVPB DAILY [facility] PRN Reason: Protocol Last Admin: 03/21/18 09:52 Dose: 750 mg Methylprednisolone (Solu-Medrol) 40 mg IVP Q8 [facility] Last Admin: 03/21/18 15:14 Dose: 40 mg Montelukast Sodium (Singulair) 10 mg PO HS [facility] Oxycodone/Acetaminophen (Percocet 10/325 Mg Tab) 1 tab PO Q4H PRN PRN Reason: Pain, severe (8-10) Last Admin: 03/21/18 16:12 Dose: 1 tab Pantoprazole Sodium (Protonix Ec Tab) 40 mg PO 0600 [facility] Last Admin: 03/21/18 06:49 Dose: 40 mg Zolpidem Tartrate (Ambien) 5 mg PO HS PRN; Protocol PRN Reason: Insomnia Results - Vital Signs Recent Vital Signs: Last Vital Signs Temp 99.9 F H 03/21/18 12:00 Pulse 75 03/21/18 12:00 Resp 18 03/21/18 12:00 BP 126/68 03/21/18 12:00 Pulse Ox 98 03/21/18 08:10 - Labs Result Diagrams: 03/21/18 08:20 03/21/18 08:20 Labs: Laboratory Results - last 24 hr 03/21/18 03/21/18 03/21/18 07:20 07:40 08:20 WBC RBC Hgb Hct MCV MCH MCHC RDW Plt Count MPV Gran % Lymph % (Auto) Levy % (Auto) Eos % (Auto) Baso % (Auto) Gran # Lymph # (Auto) Levy # (Auto) Eos # (Auto) Baso # (Auto) pCO2 38 pO2 97.0 HCO3 23.5 ABG pH 7.40 ABG Total CO2 24.7 ABG O2 Saturation 99.4 H ABG Base Excess -1.1 ABG Potassium 3.4 L Sodium 141.0 Chloride 114.0 H Glucose 105 Lactate 0.6 L FiO2 21.0 Potassium Carbon Dioxide Anion Gap BUN Creatinine Est GFR ( Amer) Est GFR (Non-Af Amer) POC Glucose (mg/dL) 101 Random Glucose Hemoglobin A1c Calcium Total Bilirubin AST ALT Alkaline Phosphatase Troponin I NT-Pro-B Natriuret Pep 24.8 Total Protein Albumin Globulin Albumin/Globulin Ratio Triglycerides 118 Cholesterol 191 LDL Cholesterol Direct 105 HDL Cholesterol 57 Procalcitonin TSH 3rd Generation Arterial Blood Potassium 3.4 L 03/21/18 03/21/18 03/21/18 08:20 08:20 08:20 WBC 4.9 RBC 4.07 Hgb 11.6 L Hct 36.1 MCV 88.7 MCH 28.5 MCHC 32.1 RDW 13.2 Plt Count 313 MPV 8.9 Gran % 55.1 Lymph % (Auto) 33.9 Levy % (Auto) 6.7 H Eos % (Auto) 3.9 Baso % (Auto) 0.4 Gran # 2.70 Lymph # (Auto) 1.7 Levy # (Auto) 0.3 Eos # (Auto) 0.2 Baso # (Auto) 0.02 pCO2 pO2 HCO3 ABG pH ABG Total CO2 ABG O2 Saturation ABG Base Excess ABG Potassium Sodium 144 Chloride 109 H Glucose Lactate FiO2 Potassium 3.7 Carbon Dioxide 25 Anion Gap 14 BUN 12 Creatinine 0.7 Est GFR ( Amer) > 60 Est GFR (Non-Af Amer) > 60 POC Glucose (mg/dL) Random Glucose 112 H Hemoglobin A1c Calcium 9.1 Total Bilirubin 0.4 AST 26 ALT 25 Alkaline Phosphatase 82 Troponin I NT-Pro-B Natriuret Pep Total Protein 6.8 Albumin 3.9 Globulin 2.9 Albumin/Globulin Ratio 1.3 Triglycerides Cholesterol LDL Cholesterol Direct HDL Cholesterol Procalcitonin TSH 3rd Generation 2.36 Arterial Blood Potassium 03/21/18 03/21/18 03/21/18 08:20 08:20 11:28 WBC RBC Hgb Hct MCV MCH MCHC RDW Plt Count MPV Gran % Lymph % (Auto) Levy % (Auto) Eos % (Auto) Baso % (Auto) Gran # Lymph # (Auto) Levy # (Auto) Eos # (Auto) Baso # (Auto) pCO2 pO2 HCO3 ABG pH ABG Total CO2 ABG O2 Saturation ABG Base Excess ABG Potassium Sodium Chloride Glucose Lactate FiO2 Potassium Carbon Dioxide Anion Gap BUN Creatinine Est GFR ( Amer) Est GFR (Non-Af Amer) POC Glucose (mg/dL) 200 H Random Glucose Hemoglobin A1c 6.5 Calcium Total Bilirubin AST ALT Alkaline Phosphatase Troponin I NT-Pro-B Natriuret Pep Total Protein Albumin Globulin Albumin/Globulin Ratio Triglycerides Cholesterol LDL Cholesterol Direct HDL Cholesterol Procalcitonin 0.06 L TSH 3rd Generation Arterial Blood Potassium 03/21/18 15:46 WBC RBC Hgb Hct MCV MCH MCHC RDW Plt Count MPV Gran % Lymph % (Auto) Levy % (Auto) Eos % (Auto) Baso % (Auto) Gran # Lymph # (Auto) Levy # (Auto) Eos # (Auto) Baso # (Auto) pCO2 pO2 HCO3 ABG pH ABG Total CO2 ABG O2 Saturation ABG Base Excess ABG Potassium Sodium Chloride Glucose Lactate FiO2 Potassium Carbon Dioxide Anion Gap BUN Creatinine Est GFR ( Amer) Est GFR (Non-Af Amer) POC Glucose (mg/dL) Random Glucose Hemoglobin A1c Calcium Total Bilirubin AST ALT Alkaline Phosphatase Troponin I < 0.01 NT-Pro-B Natriuret Pep Total Protein Albumin Globulin Albumin/Globulin Ratio Triglycerides Cholesterol LDL Cholesterol Direct HDL Cholesterol Procalcitonin TSH 3rd Generation Arterial Blood Potassium Attending/Attestation - Attestation I have personally seen and examined this patient.: Yes I have fully participated in the care of the patient.: Yes I have reviewed all pertinent clinical information: Yes <SandritacarmenFaisal velásquez - Last Filed: 03/21/18 17:49> History of Present Illness - History of Present Illness History of Present Illness: Neurology Consult Note for Dr. Clements Consult reason: Syncope HPI: Patient is a 58 year old female with past medical history of breast cancer stage 4 diagnosed in 06/2017 s/p b/l mastectomy, radiation, emphysema and DM2 who presented to [facility] ED complaining of chest pain and syncopal episodes. Patient reports falling at least three times at home. Patient indicates she has had limited oral intake over the past three days only having small amounts of solid food and mostly liquids. Patient did report trauma to her head more than once in association with the falls. Head CT preformed in ED was negative for acute findings. Patient denies aura, biting of tongue, bowel incontinence, rhythmic jerking movements. Patient evaluated in ED with Head CT showing no acute findings, Chest CT showing no acute findings. PMH: Stgae IV breast CA, emphysema, DM2 PSH: b/l mastectomy with radiation tx ALL: NKDA SocHx: Former smoker, ETOH: Denies, ID: Denies FMH: Non-contributory Past Patient History - Infectious Disease Hx of Infectious Diseases: None - Tetanus Immunizations Tetanus Immunization: Unknown - Past Medical History & Family History Past Medical History?: Yes - Past Social History Smoking Status: Former Smoker Alcohol: None Drugs: Denies Home Situation {Lives}: With Family - CARDIAC Hx Angina: No Hx Cardia Arrhythmia: No - PULMONARY Hx Respiratory Disorders: Yes Hx Asthma: Yes Hx Bronchitis: Yes Hx Emphysema: Yes Hx Sleep Apnea: Yes (CPAP) - NEUROLOGICAL Hx Neurological Disorder: Yes (brain tumor) Hx Dementia: Yes Hx Dizziness: Yes Other/Comment: "SMALL BRAIN TUMOR-NO SURGERY" - HEENT Hx HEENT Problems: No - RENAL Hx Renal Failure: Yes - ENDOCRINE/METABOLIC Hx Diabetes Mellitus Type 2: Yes - HEMATOLOGICAL/ONCOLOGICAL Hx Blood Disorders: No Hx Cancer: Yes (LEFT BREAST) Hx Chemotherapy: No - INTEGUMENTARY Hx Dermatological Problems: No Other/Comment: HX: LEFT BREAST CANCER - MUSCULOSKELETAL/RHEUMATOLOGICAL Hx Musculoskeletal Disorders: Yes (TORN MENISCUS SX) Hx Back Pain: Yes Hx Falls: No Hx Herniated Disk: Yes (BULGING DISC L4L5) Hx Osteoarthritis: Yes Hx Unsteady Gait: Yes (CANE WALKER) - GASTROINTESTINAL Hx Gastrointestinal Disorders: Yes (GASTRITIS) Hx Gastritis: Yes HX Swallowing Problems: Yes - GENITOURINARY/GYNECOLOGICAL Hx Genitourinary Disorders: No - PSYCHIATRIC Hx Emotional Abuse: No Hx Physical Abuse: No Hx Substance Use: No - SURGICAL HISTORY Hx Arthroscopy: Yes (ARTHROSCOPIC SURGERY LEFT KNEE) Hx Cholecystectomy: Yes Hx Hysterectomy: Yes Hx Orthopedic Surgery: Yes (left knee) Other/Comment: bladder - ANESTHESIA Hx Anesthesia: Yes Hx Anesthesia Reactions: No Hx Malignant Hyperthermia: No Meds - Medications Medications: Current Medications Acetaminophen (Tylenol 325mg Tab) 650 mg PO Q6H PRN PRN Reason: Fever >100.4 F Albuterol/Ipratropium (Duoneb 3 Mg/0.5 Mg (3 Ml) Ud) 3 ml IH Q2H PRN PRN Reason: Shortness of Breath Last Admin: 03/21/18 06:50 Dose: 3 ml Albuterol/Ipratropium (Duoneb 3 Mg/0.5 Mg (3 Ml) Ud) 3 ml IH [id number] [facility] Last Admin: 03/21/18 08:05 Dose: 3 ml Aspirin (Aspirin Chewable) 81 mg PO DAILY [facility] Last Admin: 03/21/18 09:52 Dose: Not Given Enoxaparin Sodium (Lovenox) 40 mg SC DAILY [facility] PRN Reason: Protocol Last Admin: 03/21/18 09:52 Dose: 40 mg Guaifenesin/Dextromethorphan (Robitussin Dm) 10 ml PO Q4H PRN PRN Reason: Cough Insulin Human Lispro (Humalog Low) 0 units SC ACHS [facility] PRN Reason: Protocol Last Admin: 03/21/18 08:06 Dose: Not Given Levofloxacin/Dextrose (Levaquin 750mg) 750 mg IVPB DAILY [facility] PRN Reason: Protocol Last Admin: 03/21/18 09:52 Dose: 750 mg Methylprednisolone (Solu-Medrol) 40 mg IVP Q8 [facility] Last Admin: 03/21/18 06:49 Dose: 40 mg Montelukast Sodium (Singulair) 10 mg PO HS [facility] Pantoprazole Sodium (Protonix Ec Tab) 40 mg PO 0600 [facility] Last Admin: 03/21/18 06:49 Dose: 40 mg Zolpidem Tartrate (Ambien) 5 mg PO HS PRN; Protocol PRN Reason: Insomnia Physical Exam - Constitutional Appears: No Acute Distress Additional comments: fatigued - Head Exam Head Exam: ATRAUMATIC, NORMAL INSPECTION, NORMOCEPHALIC - Eye Exam Eye Exam: EOMI, PERRL - ENT Exam ENT Exam: Mucous Membranes Dry - Respiratory Exam Respiratory Exam: NORMAL BREATHING PATTERN - Cardiovascular Exam Cardiovascular Exam: REGULAR RHYTHM, +S1, +S2 - GI/Abdominal Exam GI & Abdominal Exam: Normal Bowel Sounds, Soft. absent: Tenderness - Neurological Exam Neurological exam: Alert, CN II-XII Intact, Oriented x3 Additional comments: Strength 5/5 in all four extremities Sensory intact - Psychiatric Exam Psychiatric exam: Normal Mood - Skin Skin Exam: Dry, Intact Results - Vital Signs Recent Vital Signs: Last Vital Signs Temp 98.6 F 03/21/18 08:10 Pulse 88 03/21/18 08:10 Resp 20 03/21/18 08:10 BP 139/82 03/21/18 08:10 Pulse Ox 98 03/21/18 08:10 - Labs Result Diagrams: 03/21/18 08:20 03/21/18 08:20 Labs: Laboratory Results - last 24 hr 03/21/18 03/21/18 03/21/18 07:20 07:40 08:20 WBC RBC Hgb Hct MCV MCH MCHC RDW Plt Count MPV Gran % Lymph % (Auto) Levy % (Auto) Eos % (Auto) Baso % (Auto) Gran # Lymph # (Auto) Levy # (Auto) Eos # (Auto) Baso # (Auto) pCO2 38 pO2 97.0 HCO3 23.5 ABG pH 7.40 ABG Total CO2 24.7 ABG O2 Saturation 99.4 H ABG Base Excess -1.1 ABG Potassium 3.4 L Sodium 141.0 Chloride 114.0 H Glucose 105 Lactate 0.6 L FiO2 21.0 Potassium Carbon Dioxide Anion Gap BUN Creatinine Est GFR ( Amer) Est GFR (Non-Af Amer) POC Glucose (mg/dL) 101 Random Glucose Calcium Total Bilirubin AST ALT Alkaline Phosphatase NT-Pro-B Natriuret Pep 24.8 Total Protein Albumin Globulin Albumin/Globulin Ratio Triglycerides 118 Cholesterol 191 LDL Cholesterol Direct 105 HDL Cholesterol 57 TSH 3rd Generation Arterial Blood Potassium 3.4 L 03/21/18 03/21/18 03/21/18 08:20 08:20 08:20 WBC 4.9 RBC 4.07 Hgb 11.6 L Hct 36.1 MCV 88.7 MCH 28.5 MCHC 32.1 RDW 13.2 Plt Count 313 MPV 8.9 Gran % 55.1 Lymph % (Auto) 33.9 Levy % (Auto) 6.7 H Eos % (Auto) 3.9 Baso % (Auto) 0.4 Gran # 2.70 Lymph # (Auto) 1.7 Levy # (Auto) 0.3 Eos # (Auto) 0.2 Baso # (Auto) 0.02 pCO2 pO2 HCO3 ABG pH ABG Total CO2 ABG O2 Saturation ABG Base Excess ABG Potassium Sodium 144 Chloride 109 H Glucose Lactate FiO2 Potassium 3.7 Carbon Dioxide 25 Anion Gap 14 BUN 12 Creatinine 0.7 Est GFR ( Amer) > 60 Est GFR (Non-Af Amer) > 60 POC Glucose (mg/dL) Random Glucose 112 H Calcium 9.1 Total Bilirubin 0.4 AST 26 ALT 25 Alkaline Phosphatase 82 NT-Pro-B Natriuret Pep Total Protein 6.8 Albumin 3.9 Globulin 2.9 Albumin/Globulin Ratio 1.3 Triglycerides Cholesterol LDL Cholesterol Direct HDL Cholesterol TSH 3rd Generation 2.36 Arterial Blood Potassium Assessment & Plan - Assessment and Plan (Free Text) Assessment: 58 year old female with past medical history of breast cancer stage 4 diagnosed in 06/2017 s/p b/l mastectomy, radiation, emphysema and DM2 who presented to [facility] ED with reported syncopal episodes and head trauma. Head CT is negative for acute findings, Carotid US negative for significant stenosis Plan: Syncopal episode - Etiology: Neurogenic vs. Cardiogenic - Carotid US negative for significant stenosis - Head CT negative for acute findings - Orthostatic vital signs - Echocardiogram pending - Head and Neck CTA for evaluation of posterior circulation Further recommendations per Dr. Tyree Obrien PGY-2 - Date & Time Date: 03/21/18 Time: 09:30
--- NOTE | 2018-03-21 11:19 | RAD ---
HISTORY: Pain, shortness of breath. COMPARISON: 06/24/2017. FINDINGS: LUNGS: No active pulmonary disease. PLEURA: No significant pleural effusion identified, no pneumothorax apparent. CARDIOVASCULAR: Normal. OSSEOUS STRUCTURES: No significant abnormalities. VISUALIZED UPPER ABDOMEN: Normal. OTHER FINDINGS: None. IMPRESSION: No active disease. No significant interval change compared to the prior examination(s).
--- NOTE | 2018-03-21 12:26 | CT ---
PROCEDURE: CT Angiography of the neck neck and brain dated 03/21/2018 HISTORY: Evaluate posterior circulation COMPARISON: Comparison made with prior CT scan of the brain dated 2017. TECHNIQUE: Contiguous helical/transaxial images of the neck and brain in standard fashion the the mediastinum in the arteriographic phase of enhancement. Coronal and sagittal reformats or also generated. IV contrast dose: 150 cc Visipaque 320 Radiation Dose - DLP: 468.4 mGy-cm This CT exam was performed using one or more of the following dose reduction techniques: Automated exposure control, adjustment of the mA and/or kV according to patient size, and/or use of iterative reconstruction technique. . . FINDINGS: Aortic arch is widely patent despite some very minor partially calcified plaque at formation. . There is also small amount of calcified and soft plaque at the origin of the left subclavian artery and bifurcation of the right brachiocephalic artery. The common carotid arteries are widely patent as are the bifurcations with no significant atherosclerotic disease. No evidence of dissection. The at internal carotid arteries are widely patent without evidence of occlusion significant stenosis or dissection. 07/1940 note: The proximal/mid left internal artery exhibits a short retropharyngeal course. The distal internal carotid arteries including the petrous cavernous and supraclinoid segments also widely patent. The vertebral arteries are patent throughout left-sided which is the mildly larger in caliber/ more dominant than the right side. The basilar artery is patent. The major branches of the [place] are also patent. There is some minimal asymmetry of the A1 segments left-sided which is slightly larger in caliber than the right. . . The A2 and distal on anterior cerebral arteries are patent patent and symmetric as well. The anterior cerebral artery branches The middle cerebral arteries and distal branches are patent and symmetric The posterior cerebral arteries are patent and symmetric. No evidence of large aneurysm nor vascular malformation. Mild passive/dependent type atelectasis both posterior upper lung zones. Minor asymmetry of the pyriform sinuses left-side of which is not visualized likely due to some residual and or retained secretion. IMPRESSION: Aside from minor calcified plaque at the origin of the left subclavian and at the bifurcation of the right brachiocephalic artery is, the cervical vasculature is unremarkable. No evidence of large aneurysm nor vascular malformation.
[2018-03-21] MEDS: Oxycodone/Acetaminophen 10/325 mg Tab PO PRN (16:12)
--- NOTE | 2018-03-21 17:20 | CARD ---
APPROVED REPORT EKG Measurement Heart [id number] <Conclusion> Normal sinus rhythm Moderate voltage criteria for LVH, may be normal variant Cannot rule out Septal infarct, age undetermined Abnormal ECG
--- NOTE | 2018-03-21 17:39 | US ---
HISTORY: Leg pain and swelling. Evaluate for DVT PHYSICIAN(S): Jude Shah MD. TECHNIQUE: Duplex sonography and color-flow Doppler with graded compression were used to evaluate the deep venous systems of both lower extremities. FINDINGS: The visualized deep venous systems of both lower extremities are sonographically normal and compressible. Normal wave forms and augmentation are seen. There is no sonographic evidence for deep venous thrombosis in the visualized segments of both lower extremities. IMPRESSION: No sonographic evidence for deep venous thrombosis in the visualized segments of both lower extremities.
[2018-03-21 20:50] VITALS: BMI 33.4
[2018-03-21] MEDS ORDERED: Pneumococcal 23-Valent Vaccine IM ONE (20:50)
--- NOTE | 2018-03-21 23:45 | CON ---
DATE: 03/21/2018 CARDIOLOGY CONSULTATION REASON FOR CONSULTATION: Shortness of breath. HISTORY OF PRESENT ILLNESS: The patient is 58-year-old female, who has history of breast cancer, underwent bilateral mastectomy in July of last year at [facility] and was later advised to have radiation and chemo, but the patient did seek second opinion in [facility], who recommended radiation; however, the details of patient's history are somewhat confusing, as per the patient's story. The patient's sister at the bedside stated that the patient had pelvic metastasis. The patient was admitted because of shortness of breath and chest discomfort. Patient is unaware of any prior cardiac history in the past and denies any history of DVT recently. SOCIAL HISTORY: Patient is a smoker, nondrinker. MEDICATIONS: Ambien 5 mg at bedtime; aspirin 81 mg once a day, which the patient refused to take; Levaquin 750 mg intravenously daily; Lovenox 40 mg subcutaneous once a day; Protonix 40 mg p.o. twice a day; Robitussin 10 mL every 4 hours p.r.n.; Solu-Medrol 40 mg intravenously every 8 hours; Singulair 10 mg once a day. REVIEW OF SYSTEMS: No fever or chills. No seizure activity. PHYSICAL EXAMINATION: GENERAL: Patient is a middle-aged female, who does not appear to be in acute distress. VITAL SIGNS: Blood pressure /82, heart rate 88, temperature 98.6, respirations 20. HEENT: Normocephalic. CHEST: Clear. HEART: S1 and S2 regular. BREASTS: The scar of bilateral mastectomy appears well healed. ABDOMEN: Soft. EXTREMITIES: No edema or calf tenderness. LABORATORY DATA: Admitting CBC is entirely within normal limits. Today's SMA-7 is within normal limits except for a glucose 112 and chloride of 109. One set of troponin is negative. Lipid profile is within normal limits. CT angio of the chest with PE protocol, no acute findings. Head CT scan, no acute findings. Carotid Doppler, no significant disease. EKG revealed sinus rhythm, possible anteroseptal VA, moderate voltage criteria for LVH. ASSESSMENT: 1. Atypical chest pain. 2. Reported syncopal episodes. 3. Reported stage IV breast cancer, status post bilateral mastectomy at [place] in July of last year. RECOMMENDATIONS: Continue current subcutaneous Lovenox, IV Levaquin, IV Solu-Medrol. Case was discussed with the medical team. Consider skeletal survey for the patient's metastasis. Obtain the patient's records from [facility] to avoid doing unnecessary workup. The patient will undergo a followup head CT scan. I will follow head and neck CT angio that was performed today. Luis David MD
[2018-03-22] MEDS: Albuterol-Ipratrop 3 mg / 0.5 (3 ml) UD IH SCH ×4 (01:01→21:04)
[2018-03-22] MEDS: Pantoprazole 40 mg EC Tab PO SCH (06:15)
[2018-03-22 06:29] LABS: GRAN # 9.28 (1.4-6.5); GRAN % 88.4 % (50.0-68.0); HEMOGLOBIN 11.6 g/dL (12.0-16.0); LYMPH # 0.9 (1.2-3.4); LYMPH % 8.8 % (22.0-35.0); MEAN CELL VOLUME 87.9 fl (80.0-105.0); MEAN CORPUSCULAR HEMOGLOBIN 28.1 pg (25.0-35.0); MONO # 0.3 (0.1-0.6); MONO % 2.8 % (1.0-6.0); RBC 4.13 10^6/uL (3.5-6.1); RED CELL DISTRIBUTION WIDTH 13.1 % (11.5-14.5); WHITE BLOOD COUNT 10.5 10^3/ul (4.5-11.0)
[2018-03-22] MEDS: MethylPREDNISolone 40 mg Vial IVP SCH ×3 (06:32→22:11)
[2018-03-22 07:10] LABS: ALB/GLOB RATIO 1.2 (1.1-1.8); ALBUMIN 3.9 g/dL (3.0-4.8); ALT/SGPT 19 U/L (7-56); AST/SGOT 20 U/L (14-36); BLOOD UREA NITROGEN 15 mg/dL (7-21); CALCIUM 8.9 mg/dL (8.4-10.5); GFR AFRICAN-AMERICAN > 60; GFR NON-AFRICAN AMERICAN > 60
[2018-03-22] MEDS: Insulin Lispro (humaLOG) LOW Coverage SC SCH ×4 (08:31→22:12)
--- NOTE | 2018-03-22 09:22 | CARD ---
APPROVED REPORT EXAM: Two-dimensional and M-mode echocardiogram with Doppler and color Doppler. Other Information Quality : AverageRhythm : INDICATION Syncope 2D DIMENSIONS Left Atrium (2D)4.0 (1.6-4.0cm)IVSd1.0 (0.7-1.1cm) LVDd5.0 (3.9-5.9cm)PWd1.0 (0.7-1.1cm) LVDs3.2 (2.5-4.0cm)FS (%) 35.7 % LVEF (%)65.0 (>50%) M-Mode DIMENSIONS Aortic Root3.00 (2.2-3.7cm)Aortic Cusp Exc.2.00 (1.5-2.0cm) Aortic Valve AoV Peak Jntoomtx537.0cm/s Mitral Valve MV E Ykjyzkxx86.8cm/sMV A Wdzunqgf64.6cm/sE/A ratio1.1 TDI Lateral E' Peak V17.40cm/sMedial E' Peak V9.94cm/sE/Lateral E'5.6 E/Medial E'9.8 Pulmonary Valve PV Peak Pkolpbwt62.1cm/sPV Peak Grad.3mmHg Tricuspid Valve TR Peak Oipdvbiy943pf/sRAP [id number] Peak Gr.13mmHg [id number] LEFT VENTRICLE The left ventricle is normal size. There is normal left ventricular wall thickness. The left ventricular function is normal. The left ventricular ejection fraction is within the normal range. There is normal LV segmental wall motion. RIGHT VENTRICLE The right ventricle is normal size. ATRIA The left atrium size is normal. The right atrium size is normal. The interatrial septum is intact with no evidence for an atrial septal defect. AORTIC VALVE The aortic valve is normal in structure. MITRAL VALVE The mitral valve is normal in structure. TRICUSPID VALVE The tricuspid valve is normal in structure. There is trace tricuspid regurgitation. PULMONIC VALVE The pulmonic valve is not well visualized. GREAT VESSELS The aortic root is normal in size. PERICARDIAL EFFUSION There is no pericardial effusion. <Conclusion> The left ventricle is normal size. There is normal left ventricular wall thickness. The left ventricular function is normal.
[2018-03-22] MEDS: Enoxaparin 40 mg Syringe SC SCH (09:33)
[2018-03-22] MEDS: levoFLOXacin 750 mg in D5W 150 ML BAG IVPB SCH (09:34)
[2018-03-22] MEDS: Oxycodone/Acetaminophen 10/325 mg Tab PO PRN (09:59)
--- NOTE | 2018-03-22 14:50 | PN ---
DATE: 03/22/2018 SUBJECTIVE: The patient denies chest pain. She is experiencing cough. PHYSICAL EXAMINATION: VITAL SIGNS: Blood pressure 120/60, heart rate 94, temperature 98.5, and respirations 16. HEENT: Normocephalic. CHEST: Bibasilar rhonchi. HEART: S1 and S2, regular. EXTREMITIES: No edema. LABORATORY DATA: Hemoglobin and hematocrit 11.6 and 36.3, white count and platelet counts are within normal limits. Today's SMA-7 is within normal limits except for glucose of 195. Lower extremity ultrasound, no DVT in the visualized segments. Head and neck CT angio aside from minor calcified plaque at origin of the left subclavian and the bifurcation of the right brachiocephalic artery. The cervical vasculature was unremarkable. No evidence of large aneurysm or vascular malformation. Echocardiographic study, normal left ventricular size and systolic function. ASSESSMENT: 1. Reported stage IV breast cancer. 2. Atypical chest pain, myocardial infarction is ruled out. 3. Questionable syncopal episode. 4. Uncontrolled diabetes mellitus. RECOMMENDATIONS: Continue current aspirin, subcutaneous Lovenox, Solu-Medrol, Singulair, and Robitussin. No further cardiac workup is indicated. Luis David MD
--- NOTE | 2018-03-22 14:57 | CP.PCM.PN ---
<Murray Dye - Last Filed: 03/22/18 16:14> Subjective - Date & Time of Evaluation Date of Evaluation: 03/22/18 Time of Evaluation: 14:57 - Subjective Subjective: Patient seen and examined at bedside, no acute events overnight. Patient states that she feels dizzy today. Denies chest pain, shortness of breath, fevers, or chills. Objective - Vital Signs/Intake and Output Vital Signs (last 24 hours): Temp Pulse Resp BP Pulse Ox 98.5 F 60 18 118/47 L 99 03/22/18 12:00 03/22/18 12:00 03/22/18 12:00 03/22/18 12:00 03/22/18 06:00 - Medications Medications: Current Medications Acetaminophen (Tylenol 325mg Tab) 650 mg PO Q6H PRN PRN Reason: Fever >100.4 F Albuterol/Ipratropium (Duoneb 3 Mg/0.5 Mg (3 Ml) Ud) 3 ml IH Q2H PRN PRN Reason: Shortness of Breath Last Admin: 03/21/18 06:50 Dose: 3 ml Albuterol/Ipratropium (Duoneb 3 Mg/0.5 Mg (3 Ml) Ud) 3 ml IH [id number] [facility] Last Admin: 03/22/18 13:31 Dose: 3 ml Aspirin (Aspirin Chewable) 81 mg PO DAILY [facility] Last Admin: 03/22/18 09:33 Dose: 81 mg Enoxaparin Sodium (Lovenox) 40 mg SC DAILY [facility] PRN Reason: Protocol Last Admin: 03/22/18 09:33 Dose: 40 mg Guaifenesin/Dextromethorphan (Robitussin Dm) 10 ml PO Q4H PRN PRN Reason: Cough Insulin Human Lispro (Humalog Low) 0 units SC ACHS [facility] PRN Reason: Protocol Last Admin: 03/22/18 12:06 Dose: 2 units Levofloxacin/Dextrose (Levaquin 750mg) 750 mg IVPB DAILY [facility] PRN Reason: Protocol Last Admin: 03/22/18 09:34 Dose: 750 mg Meclizine HCl (Antivert) 25 mg PO Q8H PRN PRN Reason: Dizziness Methylprednisolone (Solu-Medrol) 30 mg IVP Q12 [facility] Last Admin: 03/22/18 09:37 Dose: Not Given Montelukast Sodium (Singulair) 10 mg PO HS [facility] Last Admin: 03/21/18 21:15 Dose: 10 mg Oxycodone/Acetaminophen (Percocet 10/325 Mg Tab) 1 tab PO Q4H PRN PRN Reason: Pain, severe (8-10) Last Admin: 03/22/18 09:59 Dose: 1 tab Pantoprazole Sodium (Protonix Ec Tab) 40 mg PO 0600 [facility] Last Admin: 03/22/18 06:15 Dose: 40 mg Zolpidem Tartrate (Ambien) 5 mg PO HS PRN; Protocol PRN Reason: Insomnia Last Admin: 03/21/18 21:27 Dose: 5 mg - Labs Labs: PT 10.4 SECONDS (9.4-12.5) 03/20/18 22:53 INR 0.91 (0.93-1.08) L 03/20/18 22:53 APTT 31.1 Seconds (25.1-36.5) 03/20/18 22:53 - Constitutional Appears: No Acute Distress - Head Exam Head Exam: ATRAUMATIC, NORMAL INSPECTION - Eye Exam Eye Exam: Normal appearance - ENT Exam ENT Exam: Mucous Membranes Moist - Respiratory Exam Respiratory Exam: Clear to Ausculation Bilateral, Wheezes - Cardiovascular Exam Cardiovascular Exam: REGULAR RHYTHM, +S1, +S2 - GI/Abdominal Exam GI & Abdominal Exam: Soft, Normal Bowel Sounds - Extremities Exam Extremities Exam: Normal Inspection - Neurological Exam Neurological Exam: Alert, Awake, Oriented x3 - Psychiatric Exam Psychiatric exam: Normal Mood - Skin Skin Exam: Dry, Normal Color Assessment and Plan - Assessment and Plan (Free Text) Assessment: Ms. Holley is a 58 year old female with PMH of breast cancer stage IV, emphysema , DM2 presenting with SOB and chest pain. This is most likely secondary to an acute emphysema exacerbation but cardiac and syncope workups are needed as well. Plan: #Syncopal Episodes/falls -CT head and CTA chest negative for trauma -Echo is negative -Carotid US b/l showed minor plaques -Orthostatic VS: lying down 115/63, standing 133/79 -Neurology consulted # Worsening SOB and cough-Likely due to COPD Exacerbation r/o PNA and CHF, radiation induced pulm fibrosis - less likely lung met - patient saturating well on room air - nasal cannula prn -Duo nebs 3mL IH Q6hrs and prn -solumedrol 40mg IVP Q8h -Levaquin 750mg IVPB daily -Continue singulair - robittusin prn for cough #Pain control -Patient have a history of herniated disc -Percocet 10/325mg PRN # Chest pain r/o PE and ACS -Likely pleuritic but r/o ACS -Troponin negative x 2 -No significant EKG changes -CTA negative -Venous doppler of lower extremities negative -Cardiology consulted # DM2 -Hold metformin -Insulin sliding scale -Fingerstick ACHS -Moderate carbohydrate diet #DVT Prophylaxis: Lovenox sc GI Prophylaxis Protonix PO 40 mg Patient seen with and planned approved by attending physician Dr. Merlos <Vannessa Merlos - Last Filed: 03/22/18 17:29> Objective - Vital Signs/Intake and Output Vital Signs (last 24 hours): Temp Pulse Resp BP Pulse Ox 98.5 F 60 18 118/47 L 99 03/22/18 12:00 03/22/18 12:00 03/22/18 12:00 03/22/18 12:00 03/22/18 06:00 - Medications Medications: Current Medications Acetaminophen (Tylenol 325mg Tab) 650 mg PO Q6H PRN PRN Reason: Fever >100.4 F Albuterol/Ipratropium (Duoneb 3 Mg/0.5 Mg (3 Ml) Ud) 3 ml IH Q2H PRN PRN Reason: Shortness of Breath Last Admin: 03/21/18 06:50 Dose: 3 ml Albuterol/Ipratropium (Duoneb 3 Mg/0.5 Mg (3 Ml) Ud) 3 ml IH [id number] [facility] Last Admin: 03/22/18 13:31 Dose: 3 ml Aspirin (Aspirin Chewable) 81 mg PO DAILY [facility] Last Admin: 03/22/18 09:33 Dose: 81 mg Enoxaparin Sodium (Lovenox) 40 mg SC DAILY [facility] PRN Reason: Protocol Last Admin: 03/22/18 09:33 Dose: 40 mg Guaifenesin/Dextromethorphan (Robitussin Dm) 10 ml PO Q4H PRN PRN Reason: Cough Insulin Human Lispro (Humalog Low) 0 units SC ACHS [facility] PRN Reason: Protocol Last Admin: 03/22/18 12:06 Dose: 2 units Levofloxacin/Dextrose (Levaquin 750mg) 750 mg IVPB DAILY [facility] PRN Reason: Protocol Last Admin: 03/22/18 09:34 Dose: 750 mg Meclizine HCl (Antivert) 25 mg PO Q8H PRN PRN Reason: Dizziness Methylprednisolone (Solu-Medrol) 30 mg IVP Q12 [facility] Last Admin: 03/22/18 09:37 Dose: Not Given Montelukast Sodium (Singulair) 10 mg PO HS [facility] Last Admin: 03/21/18 21:15 Dose: 10 mg Ondansetron HCl (Zofran Odt) 4 mg PO Q8H PRN PRN Reason: Nausea/Vomiting Last Admin: 03/22/18 16:26 Dose: 4 mg Oxycodone/Acetaminophen (Percocet 10/325 Mg Tab) 1 tab PO Q4H PRN PRN Reason: Pain, severe (8-10) Last Admin: 03/22/18 09:59 Dose: 1 tab Pantoprazole Sodium (Protonix Ec Tab) 40 mg PO 0600 [facility] Last Admin: 03/22/18 06:15 Dose: 40 mg Zolpidem Tartrate (Ambien) 5 mg PO HS PRN; Protocol PRN Reason: Insomnia Last Admin: 03/21/18 21:27 Dose: 5 mg - Labs Labs: PT 10.4 SECONDS (9.4-12.5) 03/20/18 22:53 INR 0.91 (0.93-1.08) L 03/20/18 22:53 APTT 31.1 Seconds (25.1-36.5) 03/20/18 22:53 Attending/Attestation - Attestation I have personally seen and examined this patient.: Yes I have fully participated in the care of the patient.: Yes I have reviewed all pertinent clinical information, including history, physical exam and plan: Yes Notes (Text): 03/22/18 17:15 Patient seen and examined by me at 10:00 AM. Case including physical assessment and plan discussed with resident. Patient states that she is not feeling very well today. She complains of dizziness. He states that she had difficulty walking to the bathroom this morning secondary to dizziness. She also complains of left upper/mid back pain. She takes Percocet for this which is helping the pain. No chest pain or shortness of breath. No abdominal pain nausea or vomiting. No fevers or chills. No headaches. No dysuria. Physical exam: Gen: Patient is awake and alert lying in bed in no acute distress HEENT: Normocephalic atraumatic, extraocular muscles intact, pupils equal reactive, oropharynx is pink and moist, no pharyngeal erythema or exudate appreciated, neck is supple. Cardiovascular: Normal rhythm, normal S1-S2, no murmurs rubs or gallops appreciated Pulmonary: Normal respiratory effort. No rhonchi or rales. Mild wheezing throughout. Gastrointestinal: Soft, nontender, nondistended, positive bowel sounds all 4 quadrants, no guarding Musculoskeletal: Moves all extremities, no calf tenderness. Positive left upper and mid paramuscular tenderness Central nervous system: AAO 3 Dermatologic: Skin warm and dry Assessment and plan: Syncopal episodes have resolved. This may have been likely secondary to orthostatic hypotension. Patient advised to stay well hydrated. Patient educated on getting up slowly out of bed. Patient also advised to use compression stockings. CTA head and neck showed minor calcified plaque at the origin of the left subclavian and at the bifurcation of the right brachiocephalic artery. No other significant findings were seen. Carotid Doppler showed bilateral 0-19% proximal ICA stenosis and antegrade flow in both vertebral arteries. Head CT with no acute intracranial abnormalities. Neurology following, recommendations appreciated. Continue with aspirin. Patient also with COPD exacerbation. Some wheezing. Continue with IV Solu-Medrol. Taper steroids. Continue with nebulizer treatments. Cough is improved. Continue with Levaquin. CTA chest with no acute findings. Chest pain resolved. Case was discussed in detail with the patient regarding her diagnosis and treatment plan
[2018-03-23] MEDS: Albuterol-Ipratrop 3 mg / 0.5 (3 ml) UD IH SCH ×3 (02:28→20:35)
[2018-03-23] MEDS: Pantoprazole 40 mg EC Tab PO SCH (06:03)
--- NOTE | 2018-03-23 06:16 | CP.PCM.PN ---
<Murray Dye - Last Filed: 03/23/18 16:07> Subjective - Date & Time of Evaluation Date of Evaluation: 03/23/18 Time of Evaluation: 14:37 - Subjective Subjective: Patient seen and examined at bedside. Patient states dizziness has improved to relative to baseline. Patient is also complaining of her chronic back pain which she takes percocet. Patient denies having any chest pain, shortness of breath, fevers, or chills. Objective - Vital Signs/Intake and Output Vital Signs (last 24 hours): Temp Pulse Resp BP Pulse Ox 98 F 62 17 117/64 99 03/22/18 18:00 03/22/18 18:00 03/22/18 18:00 03/23/18 00:01 03/22/18 06:00 Intake and Output: 03/22/18 03/23/18 18:59 06:59 Intake Total 720 180 Output Total 0 Balance 720 180 - Medications Medications: Current Medications Acetaminophen (Tylenol 325mg Tab) 650 mg PO Q6H PRN PRN Reason: Fever >100.4 F Albuterol/Ipratropium (Duoneb 3 Mg/0.5 Mg (3 Ml) Ud) 3 ml IH Q2H PRN PRN Reason: Shortness of Breath Last Admin: 03/21/18 06:50 Dose: 3 ml Albuterol/Ipratropium (Duoneb 3 Mg/0.5 Mg (3 Ml) Ud) 3 ml IH [id number] [facility] Last Admin: 03/23/18 02:28 Dose: 3 ml Aspirin (Aspirin Chewable) 81 mg PO DAILY [facility] Last Admin: 03/22/18 09:33 Dose: 81 mg Enoxaparin Sodium (Lovenox) 40 mg SC DAILY [facility] PRN Reason: Protocol Last Admin: 03/22/18 09:33 Dose: 40 mg Guaifenesin/Dextromethorphan (Robitussin Dm) 10 ml PO Q4H PRN PRN Reason: Cough Insulin Human Lispro (Humalog Low) 0 units SC ACHS [facility] PRN Reason: Protocol Last Admin: 03/22/18 22:12 Dose: Not Given Levofloxacin/Dextrose (Levaquin 750mg) 750 mg IVPB DAILY [facility] PRN Reason: Protocol Last Admin: 03/22/18 09:34 Dose: 750 mg Meclizine HCl (Antivert) 25 mg PO Q8H PRN PRN Reason: Dizziness Methylprednisolone (Solu-Medrol) 30 mg IVP Q12 [facility] Last Admin: 03/22/18 22:11 Dose: 30 mg Montelukast Sodium (Singulair) 10 mg PO HS [facility] Last Admin: 03/22/18 22:10 Dose: 10 mg Ondansetron HCl (Zofran Odt) 4 mg PO Q8H PRN PRN Reason: Nausea/Vomiting Last Admin: 03/22/18 16:26 Dose: 4 mg Oxycodone/Acetaminophen (Percocet 10/325 Mg Tab) 1 tab PO Q4H PRN PRN Reason: Pain, severe (8-10) Last Admin: 03/22/18 09:59 Dose: 1 tab Pantoprazole Sodium (Protonix Ec Tab) 40 mg PO 0600 [facility] Last Admin: 03/23/18 06:03 Dose: 40 mg Zolpidem Tartrate (Ambien) 5 mg PO HS PRN; Protocol PRN Reason: Insomnia Last Admin: 03/22/18 22:10 Dose: 5 mg - Labs Labs: PT 10.4 SECONDS (9.4-12.5) 03/20/18 22:53 INR 0.91 (0.93-1.08) L 03/20/18 22:53 APTT 31.1 Seconds (25.1-36.5) 03/20/18 22:53 - Constitutional Appears: No Acute Distress - Head Exam Head Exam: ATRAUMATIC, NORMAL INSPECTION - Eye Exam Eye Exam: Normal appearance - ENT Exam ENT Exam: Mucous Membranes Moist - Neck Exam Neck Exam: Normal Inspection - Respiratory Exam Respiratory Exam: Wheezes (Expiratory wheezes present) - Cardiovascular Exam Cardiovascular Exam: REGULAR RHYTHM, +S1, +S2 - GI/Abdominal Exam GI & Abdominal Exam: Soft, Normal Bowel Sounds. absent: Tenderness - Extremities Exam Extremities Exam: Normal Inspection. absent: Pedal Edema - Neurological Exam Neurological Exam: Alert, Awake, Oriented x3 - Skin Skin Exam: Dry, Normal Color, Warm Assessment and Plan - Assessment and Plan (Free Text) Assessment: Assessment: Ms. Holley is a 58 year old female with PMH of breast cancer stage IV, COPD, and Diabetes mellitus type 2 who was admitted for evaluation and treatment for wiith SOB and chest pain. Plan: Syncopal Episodes/falls - CT head and CTA chest negative for trauma - Echo reviewed and appreciated- left ventricle in normal in size, normal left ventricular wall thickness - Carotid US b/l showed minor plaques - Orthostatic VS: lying down 106/47, standing 117/64 - Neurology consulted Dizziness - most likely secondary to orthostatic hypotension - Educated patient to stay hydrated - Meclizine 25mg Worsening SOB and cough - Likely due to COPD Exacerbation - ambulatory pulse ox is 95% - Chest Xray is negative - continue Duo nebs 3mL IH Q6hrs and prn - continue Solumedrol 30mg IVP Q8h - continue Levaquin 750mg IVPB daily - continue Singulair 10mg - Robittusin prn for cough Pain control - Patient have a history of herniated disc and have chronic back pain - Percocet 10/325mg PRN Constipation - Patient's last bowel movement was 5 days ago. - Ordered Miralax Chest pain - r/o PE and ACS- resolved - Likely pleuritic but r/o ACS - Troponin negative x 2 - No significant EKG changes - CTA negative - Venous doppler of lower extremities negative - Cardiology consulted DM2 - Hold metformin - Insulin sliding scale - Fingerstick ACHS - Moderate carbohydrate diet Prophylaxis - DVT Prophylaxis: Lovenox sc - GI Prophylaxis Protonix PO 40 mg Patient seen with and planned approved by attending physician Dr. Merlos <Vannessa Merlos - Last Filed: 03/23/18 16:39> Objective - Vital Signs/Intake and Output Vital Signs (last 24 hours): Temp Pulse Resp BP Pulse Ox 98.8 F 59 L 18 107/56 L 97 03/23/18 14:00 03/23/18 14:00 03/23/18 14:00 03/23/18 14:00 03/23/18 14:00 Intake and Output: 03/23/18 03/23/18 06:59 18:59 Intake Total 180 Output Total 0 Balance 180 - Medications Medications: Current Medications Acetaminophen (Tylenol 325mg Tab) 650 mg PO Q6H PRN PRN Reason: Fever >100.4 F Albuterol/Ipratropium (Duoneb 3 Mg/0.5 Mg (3 Ml) Ud) 3 ml IH Q2H PRN PRN Reason: Shortness of Breath Last Admin: 03/21/18 06:50 Dose: 3 ml Albuterol/Ipratropium (Duoneb 3 Mg/0.5 Mg (3 Ml) Ud) 3 ml IH [id number] [facility] Last Admin: 03/23/18 08:12 Dose: 3 ml Alprazolam (Xanax) 2 mg PO TID PRN PRN Reason: Anxiety Aspirin (Aspirin Chewable) 81 mg PO DAILY [facility] Last Admin: 03/23/18 10:35 Dose: 81 mg Calcium/Vitamin D (Oscal-D 250 Mg-125 Units Tab) 1 tab PO DAILY [facility] Last Admin: 03/23/18 10:35 Dose: 1 tab Enoxaparin Sodium (Lovenox) 40 mg SC DAILY [facility] PRN Reason: Protocol Last Admin: 03/23/18 10:33 Dose: 40 mg Guaifenesin/Dextromethorphan (Robitussin Dm) 10 ml PO Q4H PRN PRN Reason: Cough Insulin Human Lispro (Humalog Low) 0 units SC ACHS [facility] PRN Reason: Protocol Last Admin: 03/23/18 12:27 Dose: 1 units Levofloxacin/Dextrose (Levaquin 750mg) 750 mg IVPB DAILY [facility] PRN Reason: Protocol Last Admin: 03/23/18 10:33 Dose: 750 mg Meclizine HCl (Antivert) 25 mg PO Q8H PRN PRN Reason: Dizziness Methylprednisolone (Solu-Medrol) 30 mg IVP Q12 [facility] Last Admin: 03/23/18 10:34 Dose: 30 mg Montelukast Sodium (Singulair) 10 mg PO HS [facility] Last Admin: 03/22/18 22:10 Dose: 10 mg Ondansetron HCl (Zofran Odt) 4 mg PO Q8H PRN PRN Reason: Nausea/Vomiting Last Admin: 03/22/18 16:26 Dose: 4 mg Oxycodone/Acetaminophen (Percocet 10/325 Mg Tab) 1 tab PO Q4H PRN PRN Reason: Pain, severe (8-10) Last Admin: 03/22/18 09:59 Dose: 1 tab Pantoprazole Sodium (Protonix Ec Tab) 40 mg PO 0600 [facility] Last Admin: 03/23/18 06:03 Dose: 40 mg Polyethylene Glycol (Miralax) 17 gm PO DAILY [facility] Last Admin: 03/23/18 13:54 Dose: 17 gm Zolpidem Tartrate (Ambien) 5 mg PO HS PRN; Protocol PRN Reason: Insomnia Last Admin: 03/22/18 22:10 Dose: 5 mg - Labs Labs: 03/23/18 08:10 03/23/18 08:10 PT 10.4 SECONDS (9.4-12.5) 03/20/18 22:53 INR 0.91 (0.93-1.08) L 03/20/18 22:53 APTT 31.1 Seconds (25.1-36.5) 03/20/18 22:53 Attending/Attestation - Attestation I have personally seen and examined this patient.: Yes I have fully participated in the care of the patient.: Yes I have reviewed all pertinent clinical information, including history, physical exam and plan: Yes Notes (Text): Patient seen and examined by me at 11:15 AM with resident. Case including physical assessment and plan discussed with resident. Agree with above with following additions/changes. Patient states she is not feeling well. Still complaining of dizziness, more prominent when she stands.She also complains of left upper/mid back and left breast area pain. Percocet is helping the pain. No chest pain or shortness of breath. No abdominal pain nausea or vomiting. No fevers or chills. No headaches. No dysuria. Patient complains of constipation and states her last bowel movement was 5 days ago. Physical exam: Gen: Patient is awake and alert lying in bed in no acute distress HEENT: Normocephalic atraumatic, extraocular muscles intact, pupils equal reactive, oropharynx is pink and moist, no pharyngeal erythema or exudate appreciated, neck is supple. Cardiovascular: Normal rhythm, normal S1-S2, no murmurs rubs or gallops appreciated Pulmonary: Normal respiratory effort. No rhonch, rales or wheezing appreciated. Gastrointestinal: Soft, nontender, nondistended, positive bowel sounds all 4 quadrants, no guarding Musculoskeletal: Moves all extremities, no calf tenderness. Positive left upper and mid back paraspinal muscle tenderness Central nervous system: AAO 3 Dermatologic: Skin warm and dry Assessment and plan: Patient is a 58-year-old female that presented with syncope. Syncopal episodes have resolved. May be secondary to orthostatic hypotension. Continues to complain of dizziness. States that she cannot go home today secondary to her dizziness. We'll ambulate the patient to assess gait stability as well as oxygen levels. Patient advised to stay well hydrated and also educated on getting up slowly out of bed. Patient also advised to use compression stockings. Neurology following, recommendations appreciated. Continue with aspirin. Patient also with COPD exacerbation. Wheezing improved Continue with IV Solu-Medrol taper. Continue with nebulizer treatments. Cough is improved. Continue with Levaquin. Left breast and back pain likely secondary to history of breast cancer. Patient advised to continue follow-up with oncologist. Leukocytosis likely secondary to steroids. Continue to monitor. Disposition: IA planning for tomorrow if dizziness improved. Case was discussed in detail with the patient regarding her diagnosis and treatment plan 03/23/18 16:38
[2018-03-23] MEDS: Insulin Lispro (humaLOG) LOW Coverage SC SCH ×3 (08:16→17:30)
[2018-03-23 08:32] LABS: GRAN # 9.65 (1.4-6.5); GRAN % 84.5 % (50.0-68.0); HEMOGLOBIN 11.7 g/dL (12.0-16.0); LYMPH # 1.3 (1.2-3.4); LYMPH % 11.3 % (22.0-35.0); MEAN CELL VOLUME 89.4 fl (80.0-105.0); MEAN CORPUSCULAR HEMOGLOBIN 28.1 pg (25.0-35.0); MEAN CORPUSCULAR HGB CONC 31.4 g/dl (31.0-37.0); MEAN PLATELET VOLUME 8.7 fl (7.0-11.0); MONO # 0.5 (0.1-0.6); MONO % 4.2 % (1.0-6.0); RBC 4.17 10^6/uL (3.5-6.1); RED CELL DISTRIBUTION WIDTH 13.5 % (11.5-14.5); WHITE BLOOD COUNT 11.4 10^3/ul (4.5-11.0)
[2018-03-23 08:40] LABS: ALB/GLOB RATIO 1.4 (1.1-1.8); ALBUMIN 4.1 g/dL (3.0-4.8); ALT/SGPT 18 U/L (7-56); AST/SGOT 17 U/L (14-36); BLOOD UREA NITROGEN 15 mg/dL (7-21); CALCIUM 8.9 mg/dL (8.4-10.5); GFR AFRICAN-AMERICAN > 60; GFR NON-AFRICAN AMERICAN > 60
[2018-03-23] MEDS: levoFLOXacin 750 mg in D5W 150 ML BAG IVPB SCH (10:33)
[2018-03-23] MEDS: Enoxaparin 40 mg Syringe SC SCH (10:33)
[2018-03-23] MEDS: MethylPREDNISolone 40 mg Vial IVP SCH ×2 (10:34→21:40)
[2018-03-23] MEDS: Calcium-Vit D 250 mg-125 Units Tab UD PO SCH (10:35)
[2018-03-23] MEDS: POLYETHYLENE GLYCOL 3350 17 GM/Dose PACKET PO SCH (13:54)
[2018-03-24] MEDS: Albuterol-Ipratrop 3 mg / 0.5 (3 ml) UD IH SCH ×3 (03:05→13:38)
[2018-03-24] MEDS: Pantoprazole 40 mg EC Tab PO SCH (05:46)
[2018-03-24 07:48] LABS: BASO # 0.01 K/mm3 (0.0-2.0); BASO % 0.1 % (0.0-3.0); GRAN # 8.54 (1.4-6.5); HEMOGLOBIN 11.3 g/dL (12.0-16.0); LYMPH % 17.9 % (22.0-35.0); MEAN CELL VOLUME 87.9 fl (80.0-105.0); MEAN CORPUSCULAR HEMOGLOBIN 28.5 pg (25.0-35.0); MEAN CORPUSCULAR HGB CONC 32.4 g/dl (31.0-37.0); MEAN PLATELET VOLUME 8.3 fl (7.0-11.0); MONO # 0.6 (0.1-0.6); RBC 3.97 10^6/uL (3.5-6.1); RED CELL DISTRIBUTION WIDTH 13.4 % (11.5-14.5); WHITE BLOOD COUNT 11.1 10^3/ul (4.5-11.0)
[2018-03-24 07:58] LABS: ALB/GLOB RATIO 1.3 (1.1-1.8); ALBUMIN 3.8 g/dL (3.0-4.8); ALT/SGPT 18 U/L (7-56); AST/SGOT 17 U/L (14-36); BLOOD UREA NITROGEN 13 mg/dL (7-21); CALCIUM 8.8 mg/dL (8.4-10.5); GFR AFRICAN-AMERICAN > 60; GFR NON-AFRICAN AMERICAN > 60
[2018-03-24] MEDS: levoFLOXacin 750 mg in D5W 150 ML BAG IVPB SCH (09:55)
[2018-03-24] MEDS: Insulin Lispro (humaLOG) LOW Coverage SC SCH ×3 (09:56→16:37)
[2018-03-24] MEDS: Enoxaparin 40 mg Syringe SC SCH (09:56)
[2018-03-24] MEDS: POLYETHYLENE GLYCOL 3350 17 GM/Dose PACKET PO SCH (09:57)
[2018-03-24] MEDS: Calcium-Vit D 250 mg-125 Units Tab UD PO SCH (09:57)
[2018-03-24] MEDS: MethylPREDNISolone 40 mg Vial IVP SCH (09:57)
[2018-03-24 10:28] LABS: PH,URINE 6.5 (4.7-8.0); URINE APPEARANCE CLEAR (CLEAR); URINE BILIRUBIN NEGATIVE (NEGATIVE); URINE BLOOD MODERATE (NEGATIVE); URINE COLOR YELLOW (YELLOW); URINE GLUCOSE (UA) NEGATIVE (NEGATIVE); URINE LEUKOCYTE ESTERASE NEGATIVE Leu/uL (NEGATIVE); URINE PROTEIN NEGATIVE mg/dL (<30 mg/dL); URINE UROBILINOGEN 0.2 E.U./dL (<1 E.U./dL)
[2018-03-24 10:31] LABS: URINE WBC NEGATIVE /hpf (0-6)
[2018-03-24 14:55] VITALS: BP 117/50; PULSE 70; RESP 18; TEMP 98.2; O2SAT 95
--- NOTE | 2018-03-24 16:02 | CP.PCM.DIS ---
<Murray Dye - Last Filed: 03/24/18 21:41> Provider - Provider Date of Admission: 03/22/18 14:01 Attending physician: Vannessa Merlos DO Primary care physician: Roberta Dumas MD Time Spent in preparation of Discharge (in minutes): 45 Hospital Course - Lab Results Lab Results: Most Recent Lab Values WBC 11.1 10^3/ul (4.5-11.0) H 03/24/18 07:35 RBC 3.97 10^6/uL (3.5-6.1) 03/24/18 07:35 Hgb 11.3 g/dL (12.0-16.0) L 03/24/18 07:35 Hct 34.9 % (36.0-48.0) L 03/24/18 07:35 MCV 87.9 fl (80.0-105.0) 03/24/18 07:35 MCH 28.5 pg (25.0-35.0) 03/24/18 07:35 MCHC 32.4 g/dl (31.0-37.0) 03/24/18 07:35 RDW 13.4 % (11.5-14.5) 03/24/18 07:35 Plt Count 301 10^3/uL (120.0-450.0) 03/24/18 07:35 MPV 8.3 fl (7.0-11.0) 03/24/18 07:35 Gran % 77.0 % (50.0-68.0) H 03/24/18 07:35 Lymph % (Auto) 17.9 % (22.0-35.0) L 03/24/18 07:35 [place] % (Auto) 5.0 % (1.0-6.0) 03/24/18 07:35 Eos % (Auto) 0.0 % (1.5-5.0) L 03/24/18 07:35 Baso % (Auto) 0.1 % (0.0-3.0) 03/24/18 07:35 Gran # 8.54 (1.4-6.5) H 03/24/18 07:35 Lymph # (Auto) 2.0 (1.2-3.4) 03/24/18 07:35 [place] # (Auto) 0.6 (0.1-0.6) 03/24/18 07:35 Eos # (Auto) 0.0 (0.0-0.7) 03/24/18 07:35 Baso # (Auto) 0.01 K/mm3 (0.0-2.0) 03/24/18 07:35 PT 10.4 SECONDS (9.4-12.5) 03/20/18 22:53 INR 0.91 (0.93-1.08) L 03/20/18 22:53 APTT 31.1 Seconds (25.1-36.5) 03/20/18 22:53 pCO2 38 mm/Hg (35-45) 03/21/18 07:20 pO2 97.0 mm/Hg (80-100) 03/21/18 07:20 HCO3 23.5 mmol/L (21-28) 03/21/18 07:20 ABG pH 7.40 (7.35-7.45) 03/21/18 07:20 ABG Total CO2 24.7 mmol.L (22-28) 03/21/18 07:20 ABG O2 Saturation 99.4 % (95-98) H 03/21/18 07:20 ABG Base Excess -1.1 mmol/L (-2.0-3.0) 03/21/18 07:20 ABG Potassium 3.4 mmol/L (3.6-5.2) L 03/21/18 07:20 Sodium 141.0 mmol/L (132-148) 03/21/18 07:20 Chloride 114.0 mmol/L (98-107) H 03/21/18 07:20 Glucose 105 mg/dl (65-105) 03/21/18 07:20 Lactate 0.6 mmol/L (0.7-2.1) L 03/21/18 07:20 FiO2 21.0 % 03/21/18 07:20 Sodium 141 mmol/L (132-148) 03/24/18 07:35 Potassium 4.1 mmol/L (3.6-5.0) 03/24/18 07:35 Chloride 106 mmol/L (98-107) 03/24/18 07:35 Carbon Dioxide 26 mmol/L (21-33) 03/24/18 07:35 Anion Gap 13 (10-20) 03/24/18 07:35 BUN 13 mg/dL (7-21) 03/24/18 07:35 Creatinine 0.6 mg/dl (0.7-1.2) L 03/24/18 07:35 Est GFR ( Amer) > 60 03/24/18 07:35 Est GFR (Non-Af Amer) > 60 03/24/18 07:35 POC Glucose (mg/dL) 153 mg/dL (65-110) H 03/24/18 11:24 Random Glucose 140 mg/dL (70-110) H 03/24/18 07:35 Hemoglobin A1c 6.5 % (4.2-6.5) 03/21/18 08:20 Calcium 8.8 mg/dL (8.4-10.5) 03/24/18 07:35 Total Bilirubin 0.3 mg/dL (0.2-1.3) 03/24/18 07:35 AST 17 U/L (14-36) 03/24/18 07:35 ALT 18 U/L (7-56) 03/24/18 07:35 Alkaline Phosphatase 75 U/L (38-126) 03/24/18 07:35 Lactate Dehydrogenase 492 U/L (333-699) 03/20/18 22:53 Total Creatine Kinase 84 U/L (35-230) 03/20/18 22:53 Troponin I < 0.01 ng/mL 03/21/18 21:02 NT-Pro-B Natriuret Pep 24.8 pg/mL (0-450) 03/21/18 08:20 Total Protein 6.7 g/dL (5.8-8.3) 03/24/18 07:35 Albumin 3.8 g/dL (3.0-4.8) 03/24/18 07:35 Globulin 2.9 gm/dL 03/24/18 07:35 Albumin/Globulin Ratio 1.3 (1.1-1.8) 03/24/18 07:35 Triglycerides 118 mg/dL (35-160) 03/21/18 08:20 Cholesterol 191 mg/dL (130-200) 03/21/18 08:20 LDL Cholesterol Direct 105 mg/dL (0-129) 03/21/18 08:20 HDL Cholesterol 57 mg/dL (29-60) 03/21/18 08:20 Procalcitonin 0.06 NG/ML (0.19-0.49) L 03/21/18 08:20 TSH 3rd Generation 2.36 mIU/mL (0.46-4.68) 03/21/18 08:20 Arterial Blood Potassium 3.4 mmol/L (3.6-5.2) L 03/21/18 07:20 Urine Color Yellow (YELLOW) 03/24/18 10:20 Urine Appearance Clear (CLEAR) 03/24/18 10:20 Urine pH 6.5 (4.7-8.0) 03/24/18 10:20 Ur Specific [place] 1.010 (1.005-1.035) 03/24/18 10:20 Urine Protein Negative mg/dL (<30 mg/dL) 03/24/18 10:20 Urine Glucose (UA) Negative mg/dL (NEGATIVE) 03/24/18 10:20 Urine Ketones Negative mg/dL (NEGATIVE) 03/24/18 10:20 Urine Blood Moderate (NEGATIVE) H 03/24/18 10:20 Urine Nitrate Negative (NEGATIVE) 03/24/18 10:20 Urine Bilirubin Negative (NEGATIVE) 03/24/18 10:20 Urine Urobilinogen 0.2 E.U./dL (<1 E.U./dL) 03/24/18 10:20 Ur Leukocyte Esterase Negative [place]/uL (NEGATIVE) 03/24/18 10:20 Urine RBC 10 - 15 /hpf (0-2) 03/24/18 10:20 Urine WBC Negative /hpf (0-6) 03/24/18 10:20 - Hospital Course Hospital Course: Ms. Holley is a 58 year old woman with past medical history of stage 4 breast cancer s/p bilateral mastectomy, diabetes, COPD, and herniated disc. Patient presented to the emergency room with shortness of breath, chest pain, and syncopal episodes. During the course of her hospital stay, the patient underwent chest xray, electrocardiogram, head CT, chest CT, echocardiogram, carotid artery ultrasound, head and neck CTA, and lower extremity ultrasound. Chest xray showed no active disease, head CT showed no intracranial abnormalities, chest CT showed no acute findings, electrocardiogram showed normal sinus rhythm, echocardiogram showed 65% ejection fraction with normal left ventricle function, carotid artery ultrasound showed 0-19% proximal ICA stenosis, head/neck CTA showed minor plaques in left subclavian and bifurcation on right brachiocephalic artery, lower extremity ultrasound showed no evidence of DVT. Cardiology (Dr. David) and neurology (Dr. Clements) were consulted. Cardiology recommended continuing aspirin, solumedrol, singulair, subcutaneus heparin, and that no further cardiac workup is needed. Neurology ruled out neurogenic causes of syncopal episode and the most likely cause of the syncope is from orthostatic hypotension. Patient is now medically stable for discharge. Patient was educated on the correct way to take medications and asked to follow up with her primary care doctor 5-7 days after discharge. Patient was educated on the importance of staying hydrated and to not stand up too quickly due to her orthostatic hypotension. Patient further instructed to return to the emergency room for reoccurring symptoms or any other symptoms requiring any medical attention. Discharge Exam - Head Exam Head Exam: ATRAUMATIC, NORMAL INSPECTION - Eye Exam Eye Exam: Normal appearance - ENT Exam ENT Exam: Mucous Membranes Moist - Respiratory Exam Respiratory Exam: Clear to PA & Lateral, NORMAL BREATHING PATTERN - Cardiovascular Exam Cardiovascular Exam: REGULAR RHYTHM, +S1, +S2 - GI/Abdominal Exam GI & Abdominal Exam: Normal Bowel Sounds, Soft. absent: Tenderness - Extremities Exam Extremities exam: normal inspection - Neurological Exam Neurological exam: Alert, Oriented x3 - Psychiatric Exam Psychiatric exam: Normal Affect, Normal Mood - Skin Skin Exam: Dry, Normal Color, Warm Discharge Plan - Discharge Medications Prescriptions: levoFLOXacin [Levaquin] 750 mg PO DAILY 2 Days tab Meclizine [Meclizine*] 25 mg PO Q8H PRN 7 Days tab PRN Reason: Dizziness Methylprednisolone [Medrol Dose Pack (21 tabs)] 4 mg PO DAILY #21 mg Pantoprazole [Protonix EC Tab] 40 mg PO 0600 14 Days ect - Follow Up Plan Condition: STABLE Disposition: HOME/ ROUTINE Instructions: Syncope (Fainting), Orthostatic Hypotension, Diabetic Meal Planning Additional Instructions: Patient Instructions: 1. Take medications as prescribed. Please start Levaquin on 03/25/2018. 2. Please follow up with primary care physician and oncologist within 3-5 days from discharge 3. Stay well hydrated. Get out of bed slowly. Go from lying to sitting to standing physician slowly. 4. Please utilize compression stockings. 5. Please return to emergency department for reoccurring symptoms or any other symptoms requiring any medical attention. Referrals: Roberta Dumas MD [Primary Care Provider] - <Vannessa Merlos - Last Filed: 03/25/18 16:38> Provider - Provider Date of Admission: 03/22/18 14:01 Attending physician: Vannessa Merlos DO Primary care physician: Roberta Dumas MD Hospital Course - Lab Results Lab Results: Micro Results 03/24/18 10:20 Urine,Clean Catch Urine Culture - Final No Growth (<1,000 CFU/ML) Most Recent Lab Values WBC 11.1 10^3/ul (4.5-11.0) H 03/24/18 07:35 RBC 3.97 10^6/uL (3.5-6.1) 03/24/18 07:35 Hgb 11.3 g/dL (12.0-16.0) L 03/24/18 07:35 Hct 34.9 % (36.0-48.0) L 03/24/18 07:35 MCV 87.9 fl (80.0-105.0) 03/24/18 07:35 MCH 28.5 pg (25.0-35.0) 03/24/18 07:35 MCHC 32.4 g/dl (31.0-37.0) 03/24/18 07:35 RDW 13.4 % (11.5-14.5) 03/24/18 07:35 Plt Count 301 10^3/uL (120.0-450.0) 03/24/18 07:35 MPV 8.3 fl (7.0-11.0) 03/24/18 07:35 Gran % 77.0 % (50.0-68.0) H 03/24/18 07:35 Lymph % (Auto) 17.9 % (22.0-35.0) L 03/24/18 07:35 [place] % (Auto) 5.0 % (1.0-6.0) 03/24/18 07:35 Eos % (Auto) 0.0 % (1.5-5.0) L 03/24/18 07:35 Baso % (Auto) 0.1 % (0.0-3.0) 03/24/18 07:35 Gran # 8.54 (1.4-6.5) H 03/24/18 07:35 Lymph # (Auto) 2.0 (1.2-3.4) 03/24/18 07:35 [place] # (Auto) 0.6 (0.1-0.6) 03/24/18 07:35 Eos # (Auto) 0.0 (0.0-0.7) 03/24/18 07:35 Baso # (Auto) 0.01 K/mm3 (0.0-2.0) 03/24/18 07:35 PT 10.4 SECONDS (9.4-12.5) 03/20/18 22:53 INR 0.91 (0.93-1.08) L 03/20/18 22:53 APTT 31.1 Seconds (25.1-36.5) 03/20/18 22:53 pCO2 38 mm/Hg (35-45) 03/21/18 07:20 pO2 97.0 mm/Hg (80-100) 03/21/18 07:20 HCO3 23.5 mmol/L (21-28) 03/21/18 07:20 ABG pH 7.40 (7.35-7.45) 03/21/18 07:20 ABG Total CO2 24.7 mmol.L (22-28) 03/21/18 07:20 ABG O2 Saturation 99.4 % (95-98) H 03/21/18 07:20 ABG Base Excess -1.1 mmol/L (-2.0-3.0) 03/21/18 07:20 ABG Potassium 3.4 mmol/L (3.6-5.2) L 03/21/18 07:20 Sodium 141.0 mmol/L (132-148) 03/21/18 07:20 Chloride 114.0 mmol/L (98-107) H 03/21/18 07:20 Glucose 105 mg/dl (65-105) 03/21/18 07:20 Lactate 0.6 mmol/L (0.7-2.1) L 03/21/18 07:20 FiO2 21.0 % 03/21/18 07:20 Sodium 141 mmol/L (132-148) 03/24/18 07:35 Potassium 4.1 mmol/L (3.6-5.0) 03/24/18 07:35 Chloride 106 mmol/L (98-107) 03/24/18 07:35 Carbon Dioxide 26 mmol/L (21-33) 03/24/18 07:35 Anion Gap 13 (10-20) 03/24/18 07:35 BUN 13 mg/dL (7-21) 03/24/18 07:35 Creatinine 0.6 mg/dl (0.7-1.2) L 03/24/18 07:35 Est GFR ( Amer) > 60 03/24/18 07:35 Est GFR (Non-Af Amer) > 60 03/24/18 07:35 POC Glucose (mg/dL) 215 mg/dL (65-110) H 03/24/18 16:10 Random Glucose 140 mg/dL (70-110) H 03/24/18 07:35 Hemoglobin A1c 6.5 % (4.2-6.5) 03/21/18 08:20 Calcium 8.8 mg/dL (8.4-10.5) 03/24/18 07:35 Total Bilirubin 0.3 mg/dL (0.2-1.3) 03/24/18 07:35 AST 17 U/L (14-36) 03/24/18 07:35 ALT 18 U/L (7-56) 03/24/18 07:35 Alkaline Phosphatase 75 U/L (38-126) 03/24/18 07:35 Lactate Dehydrogenase 492 U/L (333-699) 03/20/18 22:53 Total Creatine Kinase 84 U/L (35-230) 03/20/18 22:53 Troponin I < 0.01 ng/mL 03/21/18 21:02 NT-Pro-B Natriuret Pep 24.8 pg/mL (0-450) 03/21/18 08:20 Total Protein 6.7 g/dL (5.8-8.3) 03/24/18 07:35 Albumin 3.8 g/dL (3.0-4.8) 03/24/18 07:35 Globulin 2.9 gm/dL 03/24/18 07:35 Albumin/Globulin Ratio 1.3 (1.1-1.8) 03/24/18 07:35 Triglycerides 118 mg/dL (35-160) 03/21/18 08:20 Cholesterol 191 mg/dL (130-200) 03/21/18 08:20 LDL Cholesterol Direct 105 mg/dL (0-129) 03/21/18 08:20 HDL Cholesterol 57 mg/dL (29-60) 03/21/18 08:20 Procalcitonin 0.06 NG/ML (0.19-0.49) L 03/21/18 08:20 TSH 3rd Generation 2.36 mIU/mL (0.46-4.68) 03/21/18 08:20 Arterial Blood Potassium 3.4 mmol/L (3.6-5.2) L 03/21/18 07:20 Urine Color Yellow (YELLOW) 03/24/18 10:20 Urine Appearance Clear (CLEAR) 03/24/18 10:20 Urine pH 6.5 (4.7-8.0) 03/24/18 10:20 Ur Specific [place] 1.010 (1.005-1.035) 03/24/18 10:20 Urine Protein Negative mg/dL (<30 mg/dL) 03/24/18 10:20 Urine Glucose (UA) Negative mg/dL (NEGATIVE) 03/24/18 10:20 Urine Ketones Negative mg/dL (NEGATIVE) 03/24/18 10:20 Urine Blood Moderate (NEGATIVE) H 03/24/18 10:20 Urine Nitrate Negative (NEGATIVE) 03/24/18 10:20 Urine Bilirubin Negative (NEGATIVE) 03/24/18 10:20 Urine Urobilinogen 0.2 E.U./dL (<1 E.U./dL) 03/24/18 10:20 Ur Leukocyte Esterase Negative [place]/uL (NEGATIVE) 03/24/18 10:20 Urine RBC 10 - 15 /hpf (0-2) 03/24/18 10:20 Urine WBC Negative /hpf (0-6) 03/24/18 10:20 Attending/Attestation - Attestation I have personally seen and examined this patient.: Yes I have fully participated in the care of the patient.: Yes I have reviewed all pertinent clinical information, including history, physical exam and plan: Yes Notes (Text): Patient seen and examined by me at 10:15 AM 03/24/18 with resident at bedside. Case including discharge planning discussed with resident. Agree with above with following additions/changes. Admitting diagnosis: 1. Dyspnea 2. COPD exacerbation 3. Chest pain 4. Syncope/falls 5. DM 2 Discharge diagnosis: 1. COPD exacerbation 2. Chest pain, ACS ruled out 3. Syncope/falls. Likely secondary to orthostatic hypotension 4. Dizziness. Likely secondary to orthostatic hypotension 5. Orthostatic hypotension 6. DM 2 7. Stage IV breast cancer as per patient Consultants called: Neurology, Dr. Clements; cardiology, Dr. David Diagnostic imaging: CTA head and neck showed minor calcified plaque at the origin of the left subclavian and at the bifurcation of the right brachiocephalic artery. No other significant findings were seen. Carotid Doppler showed bilateral 0-19% proximal ICA stenosis and antegrade flow in both vertebral arteries. Head CT with no acute intracranial abnormalities. Reason for admission: Patient is a 58-year-old female who presented to emergency room with shortness of breath and chest pain. Please see H&P for details. Hospital course: Patient is a 58-year-old female who presented to emergency room with shortness of breath and chest pain. Patient was found to have COPD exacerbation. Patient was treated with steroids, nebulizer treatments, Levaquin , and Singulair. CTA chest was done which did not show any acute findings. Symptoms resolved prior to discharge. Patient was discharged with steroid taper as well as completion of 5 days of Levaquin. Chest pain also resolved. Acute coronary syndrome was ruled out. Chest pain was likely secondary to chronic pain from stage IV breast cancer. Patient also had episodes of syncope and falls at home. She was seen by neurology here. Stroke ruled out. Carotid Dopplers, and head CT were done. No acute findings were found. Patient was however found to have orthostatic hypotension. She was treated with IV fluids. Patient was educated on getting up from a lying to a sitting to standing position. Patient was also advised to use compression stockings and stay well hydrated. Patient was seen by physical therapy multiple times and was cleared for discharge. All symptoms improved upon discharge. Patient cleared for discharge by all consultants. Physical exam: Gen: Patient is awake and alert sitting up in bed in no acute distress HEENT: Normocephalic atraumatic, extraocular muscles intact, pupils equal reactive, oropharynx is pink and moist, no pharyngeal erythema or exudate appreciated, neck is supple. Cardiovascular: Normal rhythm, normal S1-S2, no murmurs rubs or gallops appreciated Pulmonary: Normal respiratory effort. No rhonchi, rales, or wheezing appreciated Gastrointestinal: Soft, nontender, nondistended, positive bowel sounds all 4 quadrants, no guarding Musculoskeletal: Moves all extremities, no calf tenderness, no CVA tenderness Central nervous system: AAO 3 Dermatologic: Skin warm and dry Follow-up instructions: Patient to follow-up with primary care physician and her oncologist within 3-5 days from discharge. Patient to take medications as prescribed. Patient to start Levaquin on 03/25/2018 and take for 2 more days. Patient advised to stay well hydrated and educated on going from a lying to sitting to standing position. Patient to utilize compression stockings. All instructions explained to the patient in detail. Patient both understands and agrees to all instructions. Please see chart for full details. Time spent on discharging patient including chart review, medication reconciliation, discussion with the patient, consultants, and nursing staff was approximately 40 minutes.
[2018-03-25] MEDS ORDERED: levoFLOXacin 750 MG TAB PO SCH (10:00)
== END 2018-03-24 18:53 | disposition home or self-care (01) | DRG 312 ==
LOC: ED 21:40 → ERH 03-21 05:29 → 2RNO 03-21 08:52 → OBSVTOIN 03-22 14:01 → 5RSO 03-23 13:06
PROVIDERS: ADMIT Internal Medicine; ATTEND Hospitalist
DX: I95.1 Orthostatic hypotension (principal); J44.1 Chronic obstructive pulmonary disease with (acute) exacerbation; E11.65 Type 2 diabetes mellitus with hyperglycemia; F03.90 Unspecified dementia, unspecified severity, without behavioral disturbance, psychotic disturbance, mood disturbance, and anxiety; G89.3 Neoplasm related pain (acute) (chronic); R07.89 Other chest pain; F17.200 Nicotine dependence, unspecified, uncomplicated; K59.00 Constipation, unspecified; D72.829 Elevated white blood cell count, unspecified; T38.0X5A Adverse effect of glucocorticoids and synthetic analogues, initial encounter; G47.30 Sleep apnea, unspecified; D49.6 Neoplasm of unspecified behavior of brain; Z85.3 Personal history of malignant neoplasm of breast; Z90.13 Acquired absence of bilateral breasts and nipples; Z79.84 Long term (current) use of oral hypoglycemic drugs

== ENCOUNTER 2018-10-21 06:17 | Inpatient (IN) | payer MEDICAID, MEDICARE ==
[2018-10-21 06:30] VITALS: BMI 32.4
[2018-10-21] MEDS ORDERED: Albuterol-Ipratrop 3 mg / 0.5 (3 ml) UD IH STA ×3 (07:11→08:53)
--- NOTE | 2018-10-21 07:14 | ED PDOC ---
Arrival/HPI - General Chief Complaint: Shortness Of Breath Time Seen by Provider: 10/21/18 07:04 Historian: Patient - History of Present Illness Narrative History of Present Illness (Text): 10/21/18 07:11 A 58 year old female, whose past medical history includes metastatic stage 4 breast cancer s/p bilateral mastectomy with left axillary node dissection, emphysema, and asthma, presents to the emergency department with a complaint of 2 week duration, worsening cough and shortness of breath and bilateral flank pain. Patient reports being seen by her PMD on 10/05 and being prescribed a course of Prednisone. patient is a poor historian. She denies chills, headache, dizziness, chest pain, dyspnea on exertion, abdominal pain, nausea, vomiting, diarrhea, neck pain, urinary/bowel changes, or any other complaint. PMD: Dr. Dumas Time/Duration: Other (2 weeks) Symptom Onset: Gradual Symptom Course: Worsening Activities at Onset: Rest, Light Context: Home Past Medical History - Provider Review Nursing Documentation Reviewed: Yes - Infectious Disease Hx of Infectious Diseases: None - Tetanus Immunization Tetanus Immunization: Unknown - Cardiac Hx Cardiac Disorders: Yes Hx Angina: No Hx Cardiac Arrhythmia: No Hx Congestive Heart Failure: Yes Hx Hypertension: Yes - Pulmonary Hx Respiratory Disorders: Yes Hx Asthma: Yes Hx Bronchitis: Yes Hx Emphysema: Yes Hx Sleep Apnea: Yes (CPAP does not have a machine) Other/Comment: cpap taken away pt c/o mask didn't fit right but was never brought a replacement - Neurological Hx Neurological Disorder: Yes (brain tumor) Hx Dementia: Yes Hx Dizziness: Yes Other/Comment: "SMALL BRAIN TUMOR-NO SURGERY" - HEENT Hx HEENT Disorder: No - Renal Hx Renal Failure: Yes - Endocrine/Metabolic Hx Diabetes Mellitus Type 2: Yes - Hematological/Oncological Hx Blood Disorders: Yes Hx Cancer: Yes Hx Chemotherapy: Yes Other/Comment: b/l mastectomy 07/29/2017metastatic stage 4 L axilary node dissection dx 2008, 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 stge 4 lung ca recent pet scan done - Integumentary Hx Dermatological Disorder: No Other/Comment: HX: LEFT BREAST CANCER, bilateral mastectomy, r breat removed prophalactic - Musculoskeletal/Rheumatological Hx Musculoskeletal Disorders: Yes Hx Back Pain: Yes Hx Falls: No Hx Herniated Disk: Yes (BULGING DISC L4L5) Hx Osteoarthritis: Yes Hx Unsteady Gait: Yes (CANE WALKER) - Gastrointestinal Hx Gastrointestinal Disorders: Yes (GASTRITIS) HX Swallowing Problems: Yes - Genitourinary/Gynecological Hx Genitourinary Disorders: No - Psychiatric Hx Psychophysiologic Disorder: Yes Hx Anxiety: Yes Hx Depression: Yes Hx Emotional Abuse: No Hx Physical Abuse: No Hx Substance Use: No - Surgical History Hx Cholecystectomy: Yes Hx Hysterectomy: Yes (partial 2006) Hx Orthopedic Surgery: Yes (left knee arthoscopic) Other/Comment: bladder, b/l mastectomy for left breast ca, right breast removed prophilactily left axillary node dissection - Anesthesia Hx Anesthesia: Yes Hx Anesthesia Reactions: No Hx Malignant Hyperthermia: No - Suicidal Assessment Feels Threatened In Home Enviroment: No Family/Social History - Physician Review Nursing Documentation Reviewed: Yes Family/Social History: No Known Family HX Smoking Status: Light Smoker < 10 Cigarettes Daily Hx Alcohol Use: No Hx Substance Use: No Allergies/Home Meds Allergies/Adverse Reactions: Allergies FISH Allergy (Verified 10/21/18 15:13) RASH PARTICULARLY TILAPIA strawberry Allergy (Verified 10/21/18 11:34) RASH cranberry Adverse Reaction (Verified 10/21/18 11:34) ITCHING peanut Adverse Reaction (Verified 10/21/18 11:34) RASH Home Medications: Home Meds Medication Instructions Recorded Confirmed RX: Metformin HCl 500 mg PO BID 08/31/13 10/21/18 RX: Simvastatin 40 mg PO DAILY 08/31/13 10/21/18 RX: Zolpidem [Ambien] 10 mg PO HS PRN 05/13/16 10/21/18 RX: Albuterol Sulfate [Proair Hfa] 2 puff IH PRN PRN 07/26/17 10/21/18 RX: Montelukast Sodium [Singulair] 10 mg PO HS 07/26/17 10/21/18 RX: Denosumab [Xgeva] 120 mg SC Q30D 03/21/18 10/21/18 RX: Omeprazole 40 mg PO DAILY 03/23/18 10/21/18 Calcium Carbonate/Vitamin D3 1 each PO DAILY 10/21/18 10/21/18 [Caltrate 600 + D Tablet] Review of Systems - Physician Review All systems were reviewed & negative as marked: Yes - Review of Systems Respiratory: SOB, Cough Cardiovascular: absent: Chest Pain, BRITT Gastrointestinal: absent: Abdominal Pain, Stool Changes, Diarrhea, Nausea, Vomiting Genitourinary Female: absent: Urine Output Changes Musculoskeletal: Back Pain (Flank pain bilaterally). absent: Neck Pain Neurological: absent: Headache, Dizziness Physical Exam Vital Signs Reviewed: Yes Vital Signs Temp Pulse Resp BP Pulse Ox 10/21/18 06:50 18 98 10/21/18 06:30 98 F 79 18 133/74 96 Temperature: Afebrile Blood Pressure: Normal Pulse: Regular Respiratory Rate: Normal Appearance: Positive for: Well-Appearing, Non-Toxic, Comfortable Pain Distress: None Mental Status: Positive for: Alert and Oriented X 3 - Systems Exam Head: Present: Atraumatic, Normocephalic Pupils: Present: PERRL Extroacular Muscles: Present: EOMI Conjunctiva: Present: Normal Mouth: Present: Moist Mucous Membranes Neck: Present: Normal Range of Motion Respiratory/Chest: Present: Good Air Exchange, Wheezes (bilateral scattered wheezing). No: Respiratory Distress, Accessory Muscle Use Cardiovascular: Present: Regular Rate and Rhythm, Normal S1, S2. No: Murmurs Abdomen: No: Tenderness, Distention, Peritoneal Signs Back: Present: Normal Inspection Upper Extremity: Present: Normal Inspection. No: Cyanosis, Edema Lower Extremity: Present: Normal Inspection. No: Edema Neurological: Present: GCS=15, CN II-XII Intact, Speech Normal Skin: Present: Warm, Dry, Normal Color. No: Rashes Psychiatric: Present: Alert, Oriented x 3, Normal Insight, Normal Concentration Medical Decision Making ED Course and Treatment: copd failure of outpt treatment. will also eval flank pain r/o ston evs pyelo vs pna/influneza/pe Impression: A 58 year old female presents to the emergency department with a complaint of bilateral flank paina nd 2 week duration worsening shortness of breath and cough. Plan: -- EKG -- Chest X-ray -- Urinalysis -- Labs -- Duoneb and Protonix -- Reassess and disposition Prior Visits: Notes and results from previous visits were reviewed. Patient was seen in the emergency department on 03/20/2018. Patient presented with a complaint of shortness of breath and chest pain. Patient was hospitalized. Progress Notes: 10/21/18 07:33 EKG: Ordered, reviewed, and independently interpreted the EKG. Rate : 61 BPM Rhythm : NSR Interpretation : Non- specific ST-T-wave changes. Chest X-ray Dictator : Isaac Bourgeois MD Report Date : 10/21/2018 09:28:56 IMPRESSION: No active disease. PROCEDURE: CT Abdomen and Pelvis without intravenous contrast Dictator : Dheeraj Pleitez MD Report Date : 10/21/2018 09:49:06 IMPRESSION: Left renal cysts. Hysterectomy 10/21/18 10:12: Case discussed with Dr. Hardwick (hospitalist) who accepts patient for admission. wheezing improving bu t persistent stable for med surg. 10/21/18 21:40 - Lab Interpretations I have reviewed the lab results: Yes - RAD Interpretation Radiology Orders: 10/21/18 07:10 CHEST PORTABLE [RAD] Stat - EKG Interpretation Interpreted by ED Physician: Yes Type: 12 lead EKG - Scribe Statement The provider has reviewed the documentation as recorded by the Scribe Kimberly Barragan Provider Scribe Attestation: All medical record entries made by the Scribe were at my direction and personally dictated by me. I have reviewed the chart and agree that the record accurately reflects my personal performance of the history, physical exam, medical decision making, and the department course for this patient. I have also personally directed, reviewed, and agree with the discharge instructions and disposition. Disposition/Present on Arrival - Present on Arrival Any Indicators Present on Arrival: No History of DVT/PE: No History of Uncontrolled Diabetes: No Urinary Catheter: No History of Decub. Ulcer: No History Surgical Site Infection Following: None - Disposition Have Diagnosis and Disposition been Completed?: Yes Diagnosis: COPD (chronic obstructive pulmonary disease), Flank pain, acute Disposition: HOSPITALIZED Disposition Time: 21:00 Patient Problems: Current Active Problems Problem Status Onset COPD (chronic obstructive pulmonary disease) Acute Flank pain, acute Acute Condition: GOOD
[2018-10-21 07:33] LABS: BASO # 0.03 K/mm3 (0.0-2.0); BASO % 0.6 % (0.0-3.0); EOS # 0.1 (0.0-0.7); EOS % 1.5 % (1.5-5.0); HEMOGLOBIN 11.7 g/dL (12.0-16.0); LYMPH # 1.7 (1.2-3.4); LYMPH % 31.4 % (22.0-35.0); MEAN CELL VOLUME 95.1 fl (80.0-105.0); MEAN CORPUSCULAR HEMOGLOBIN 30.2 pg (25.0-35.0); MEAN CORPUSCULAR HGB CONC 31.7 g/dl (31.0-37.0); MEAN PLATELET VOLUME 8.6 fl (7.0-11.0); MONO # 0.3 (0.1-0.6); MONO % 5.9 % (1.0-6.0); RBC 3.88 10^6/uL (3.5-6.1); RED CELL DISTRIBUTION WIDTH 14.8 % (11.5-14.5); WHITE BLOOD COUNT 5.4 10^3/uL (4.5-11.0)
[2018-10-21 07:43] LABS: ALB/GLOB RATIO 1.3 (1.1-1.8); ALBUMIN 4.2 g/dL (3.0-4.8); ALT/SGPT 27 U/L (7-56); AST/SGOT 25 U/L (14-36); BLOOD UREA NITROGEN 16 mg/dL (7-21); CALCIUM 9.8 mg/dL (8.4-10.5); GFR NON-AFRICAN AMERICAN > 60; LIPASE 141 U/L (23-300)
[2018-10-21 07:47] LABS: INR 0.92; PARTIAL THROMBOPLASTIN TIME 36.1 Seconds (26.9-38.3); PROTHROMBIN TIME 10.4 SECONDS (9.4-12.5)
[2018-10-21 07:51] LABS: D DIMER < 200 ng/mlDDU (0-243)
[2018-10-21 07:55] LABS: B-TYPE NATRIURETIC PEPTIDE 27.2 pg/mL (0-450); TROPONIN I < 0.01 ng/mL
[2018-10-21 09:12] LABS: URINE BILIRUBIN NEGATIVE (NEGATIVE); URINE BLOOD MODERATE (NEGATIVE); URINE GLUCOSE (UA) NEGATIVE (NEGATIVE); URINE LEUKOCYTE ESTERASE TRACE Leu/uL (NEGATIVE); URINE PROTEIN NEGATIVE mg/dL (<30 mg/dL); URINE UROBILINOGEN 0.2 E.U./dL (<1 E.U./dL)
[2018-10-21 09:13] LABS: URINE APPEARANCE SL CLOUDY (CLEAR); URINE COLOR YELLOW (YELLOW)
[2018-10-21 09:27] LABS: URINE BACTERIA MOD /hpf
--- NOTE | 2018-10-21 09:32 | RAD ---
Date of service: 10/21/2018 HISTORY: SOB/ABD PAIN COMPARISON: Comparison chest dated 03/20/2018 FINDINGS: LUNGS: No active pulmonary disease. PLEURA: No significant pleural effusion identified, no pneumothorax apparent. CARDIOVASCULAR: No aortic atherosclerotic calcification present. Heart is enlarged no pulmonary vascular congestion. OSSEOUS STRUCTURES: No significant abnormalities. VISUALIZED UPPER ABDOMEN: Normal. OTHER FINDINGS: None. IMPRESSION: No active disease.
--- NOTE | 2018-10-21 09:52 | CT ---
Date of service: 10/21/2018 PROCEDURE: CT Abdomen and Pelvis without intravenous contrast HISTORY: b/l flank pain COMPARISON: 09/14/2016. TECHNIQUE: Technique. Contrast dose: Radiation dose: Total exam DLP = 922.91 mGy-cm. This CT exam was performed using one or more of the following dose reduction techniques: Automated exposure control, adjustment of the mA and/or kV according to patient size, and/or use of iterative reconstruction technique. FINDINGS: LOWER THORAX: Unremarkable. LIVER: Unremarkable. No gross lesion or ductal dilatation. GALLBLADDER AND BILE DUCTS: Unremarkable. PANCREAS: Unremarkable. No gross lesion or ductal dilatation. SPLEEN: Unremarkable. ADRENALS: Unremarkable. No mass. KIDNEYS AND URETERS: Left renal cysts. No hydronephrosis. No solid mass. VASCULATURE: Unremarkable. No aortic aneurysm. No aortic atherosclerotic calcification or mural plaque present. BOWEL: Unremarkable. No obstruction. No gross mural thickening. APPENDIX: Unremarkable. Normal appendix. PERITONEUM: Unremarkable. No free fluid. No free air. LYMPH NODES: Unremarkable. No enlarged lymph nodes. BLADDER: Unremarkable. REPRODUCTIVE: Hysterectomy. BONES: No acute fracture. OTHER FINDINGS: None. IMPRESSION: Left renal cysts. Hysterectomy
--- NOTE | 2018-10-21 11:22 | CARD ---
APPROVED REPORT Date of service: 10/21/2018 EKG Measurement Heart [id number] <Conclusion> Normal sinus rhythm Minimal voltage criteria for LVH, may be normal variant Nonspecific T wave abnormality
[2018-10-21] MEDS ORDERED: Albuterol-Ipratrop 3 mg / 0.5 (3 ml) UD IH PRN (12:34)
[2018-10-21] MEDS: Albuterol-Ipratrop 3 mg / 0.5 (3 ml) UD IH SCH ×2 (13:32→19:29)
[2018-10-21] MEDS: levoFLOXacin 750 mg in D5W 750 MG/150 ML BAG IVPB SCH (14:41)
[2018-10-21] MEDS ORDERED: Pneumococcal 23-Valent Vaccine IM ONE (15:41)
[2018-10-21] MEDS ORDERED: Influenza Vaccine 60 mcg/0.5 mL SYR (4YR UP) IM ONE (15:41)
[2018-10-21] MEDS ORDERED: Albuterol HFA 90 mcg/actuation (8 g) IH PRN (16:17)
[2018-10-21] MEDS ORDERED: Oxycodone/Acetaminophen 10/325 mg Tab PO PRN (16:17)
[2018-10-21] MEDS ORDERED: Albuterol 0.5% Inhal Sol (2.5 mg/0.5 ml) UD IH PRN (16:38)
[2018-10-21] MEDS ORDERED: Dextrose 50% SYRINGE Inj (50 ml) IV PRN (16:47)
--- NOTE | 2018-10-21 19:24 | CP.PCM.HP ---
<MissaelFabián - Last Filed: 10/21/18 20:40> History of Present Illness - History of Present Illness History of Present Illness: Fabián Canas, PGY-1 Medicine H&P Note for Dr. Hardwick: CC: COPD exacerbation, failed outpt management Pt is a 58 yo F with pmhx of Stage IV breast cancer (DX: 07/29/17) with mets to lungs and body of pelvis, CHF, HTN, DM2, Emphysema, Asthma, and Sleep apnea who presents to [facility] with worsening productive cough and SOB for the past 2 weeks with associated bilateral flank pain. Pt is a poor historian but does state that she was diagnosed with bronchitis and was treated this past week with antibiotics (Z-pack) which she finished; however, her shortness of breath and cough did not improve. Patient states that she feels "pain in her lungs" which she rated as a 10/10 upon inhalation and exhalation that radiates to the epigastric/diaphragm region and bilaterally to both flanks. She also admits to SOB on exertion (walking in her house). She states she had used her inhaler which would only temporarily improve her SOB. When asked, PT admits that she has increased used of her daily inhaler (5x a day) and has been waking up every night with SOB but also admits to not have a CPAP machine for her sleep apnea. She currently denies having fevers, chills, lightheadedness, dizziness, chest pain, abd pain, n/v, c/s, or dysuria. Pmhx: Stage IV breast cancer (DX: 07/29/17) with mets to lungs and body of pelvis, CHF, HTN, DM2, Emphysema, Asthma, and Sleep apnea Pshx: Mastectomy (b/l), lap lonnie Meds; omperazole 20 qd, Ambien 10 qd, Xanax 2mg PRN qd, Methotrexate 500 BID, Keppra 500 BID All: Fish, strawberry, cranberry, peanut Soc: 10cig/day, Denies etoh or illicit drug use Fam: Non-contributory PMD: [facility] Pharm: [facility] in [place] Present on Admission - Present on Admission Any Indicators Present on Admission: No Review of Systems - Review of Systems Review of Systems: 12 point ROS reviewed and negative except for noted in HPI above. Past Patient History - Infectious Disease Hx of Infectious Diseases: None - Tetanus Immunizations Tetanus Immunization: Unknown - Past Medical History & Family History Past Medical History?: Yes - Past Social History Smoking Status: Never Smoked - CARDIAC Hx Cardiac Disorders: Yes Hx Angina: No Hx Cardia Arrhythmia: No Hx Congestive Heart Failure: Yes Hx Hypertension: Yes - PULMONARY Hx Respiratory Disorders: Yes Hx Asthma: Yes Hx Bronchitis: Yes Hx Emphysema: Yes Hx Sleep Apnea: Yes (CPAP does not have a machine) Other/Comment: cpap taken away pt c/o mask didn't fit right but was never broug ht a replacement - NEUROLOGICAL Hx Neurological Disorder: Yes (brain tumor) Hx Dementia: Yes Hx Dizziness: Yes Other/Comment: "SMALL BRAIN TUMOR-NO SURGERY" - HEENT Hx HEENT Problems: No - RENAL Hx Chronic Kidney Disease: Yes Hx Renal Failure: Yes - ENDOCRINE/METABOLIC Hx Diabetes Mellitus Type 2: Yes - HEMATOLOGICAL/ONCOLOGICAL Hx Blood Disorders: Yes Hx Cancer: Yes Hx Chemotherapy: Yes Other/Comment: b/l mastectomy 07/29/2017metastatic stage 4 L axilary node dissection dx 2007, 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 stge 4 lung ca recent pet scan done - INTEGUMENTARY Hx Dermatological Problems: No Other/Comment: HX: LEFT BREAST CANCER, bilateral mastectomy, r breat removed pr ophalactic - MUSCULOSKELETAL/RHEUMATOLOGICAL Hx Musculoskeletal Disorders: Yes Hx Back Pain: Yes Hx Falls: No Hx Herniated Disk: Yes (BULGING DISC L4L5) Hx Osteoarthritis: Yes Hx Unsteady Gait: Yes (CANE WALKER) - GASTROINTESTINAL Hx Gastrointestinal Disorders: Yes (GASTRITIS) HX Swallowing Problems: Yes - GENITOURINARY/GYNECOLOGICAL Hx Genitourinary Disorders: No - PSYCHIATRIC Hx Psychophysiologic Disorder: Yes Hx Anxiety: Yes Hx Depression: Yes Hx Emotional Abuse: No Hx Physical Abuse: No Hx Substance Use: No - SURGICAL HISTORY Hx Surgeries: Yes Hx Cholecystectomy: Yes Hx Hysterectomy: Yes (partial 2006) Hx Orthopedic Surgery: Yes (left knee arthoscopic) Other/Comment: bladder, b/l mastectomy for left breast ca, right breast removed prophilactily left axillary node dissection - ANESTHESIA Hx Anesthesia: Yes Hx Anesthesia Reactions: No Hx Malignant Hyperthermia: No Meds Allergies/Adverse Reactions: Allergies Allergy/AdvReac Type Severity Reaction Status Date / Time FISH Allergy RASH Verified 02/01/19 15:13 strawberry Allergy RASH Verified 10/21/18 11:34 cranberry AdvReac ITCHING Verified 10/21/18 11:34 peanut AdvReac RASH Verified 10/21/18 11:34 Physical Exam - Constitutional Appears: Non-toxic, No Acute Distress - Head Exam Head Exam: ATRAUMATIC, NORMAL INSPECTION, NORMOCEPHALIC - Eye Exam Eye Exam: EOMI, Normal appearance, PERRL - Respiratory Exam Respiratory Exam: Wheezes (diffuse expiratory wheezing present b/l), NORMAL BREATHING PATTERN. absent: Accessory Muscle Use, Rales, Rhonchi, Respiratory Distress, Stridor - Cardiovascular Exam Cardiovascular Exam: RRR, +S1, +S2. absent: Gallop, Rubs - GI/Abdominal Exam GI & Abdominal Exam: Normal Bowel Sounds, Soft. absent: Distended, Firm, G uarding, Tenderness - Extremities Exam Extremities exam: Positive for: normal capillary refill, normal inspection, pedal pulses present. Negative for: calf tenderness - Back Exam Back exam: NORMAL INSPECTION. absent: CVA tenderness (L), CVA tenderness (R) - Neurological Exam Neurological exam: Alert, Oriented x3 - Psychiatric Exam Psychiatric exam: Normal Affect, Normal Mood - Skin Skin Exam: Dry, Normal Color, Warm Results - Vital Signs Recent Vital Signs: Last Vital Signs Temp 98.3 F 10/21/18 14:00 Pulse 85 10/21/18 14:57 Resp 16 10/21/18 14:57 BP 115/66 10/21/18 14:00 Pulse Ox 97 10/21/18 14:00 - Labs Result Diagrams: 10/21/18 06:40 10/21/18 06:40 Labs: Laboratory Results - last 24 hr 10/21/18 10/21/18 10/21/18 06:40 06:40 06:40 WBC 5.4 RBC 3.88 Hgb 11.7 L Hct 36.9 MCV 95.1 D MCH 30.2 MCHC 31.7 RDW 14.8 H Plt Count 278 MPV 8.6 Neut % (Auto) 60.6 Lymph % (Auto) 31.4 [place] % (Auto) 5.9 Eos % (Auto) 1.5 Baso % (Auto) 0.6 Lymph # (Auto) 1.7 [place] # (Auto) 0.3 Eos # (Auto) 0.1 Baso # (Auto) 0.03 Absolute Neuts (auto) 3.26 PT 10.4 INR 0.92 APTT 36.1 D-Dimer, Quantitative < 200 Sodium 141 Potassium 3.7 Chloride 108 H Carbon Dioxide 27 Anion Gap 9 L BUN 16 Creatinine 0.9 Est GFR ( Amer) > 60 Est GFR (Non-Af Amer) > 60 POC Glucose (mg/dL) Random Glucose 109 Calcium 9.8 Magnesium 2.0 Total Bilirubin 0.3 AST 25 ALT 27 Alkaline Phosphatase 59 Lactate Dehydrogenase 399 Total Creatine Kinase 43 Troponin I < 0.01 NT-Pro-B Natriuret Pep 27.2 Total Protein 7.4 Albumin 4.2 Globulin 3.2 Albumin/Globulin Ratio 1.3 Lipase 141 Urine Color Urine Appearance Urine pH Ur Specific [place] Urine Protein Urine Glucose (UA) Urine Ketones Urine Blood Urine Nitrate Urine Bilirubin Urine Urobilinogen Ur Leukocyte Esterase Urine RBC Urine WBC Ur Epithelial Cells Urine Bacteria Influenza Typ A,B (EIA) 10/21/18 10/21/18 10/21/18 06:40 08:45 13:03 WBC RBC Hgb Hct MCV MCH MCHC RDW Plt Count MPV Neut % (Auto) Lymph % (Auto) [place] % (Auto) Eos % (Auto) Baso % (Auto) Lymph # (Auto) [place] # (Auto) Eos # (Auto) Baso # (Auto) Absolute Neuts (auto) PT INR APTT D-Dimer, Quantitative Sodium Potassium Chloride Carbon Dioxide Anion Gap BUN Creatinine Est GFR ( Amer) Est GFR (Non-Af Amer) POC Glucose (mg/dL) 162 H Random Glucose Calcium Magnesium Total Bilirubin AST ALT Alkaline Phosphatase Lactate Dehydrogenase Total Creatine Kinase Troponin I NT-Pro-B Natriuret Pep Total Protein Albumin Globulin Albumin/Globulin Ratio Lipase Urine Color Yellow Urine Appearance Sl cloudy Urine pH 6.0 Ur Specific [place] >= 1.030 Urine Protein Negative Urine Glucose (UA) Negative Urine Ketones Negative Urine Blood Moderate H Urine Nitrate Negative Urine Bilirubin Negative Urine Urobilinogen 0.2 Ur Leukocyte Esterase Trace H Urine RBC 10 - 15 H Urine WBC 2 - 5 Ur Epithelial Cells 4 - 5 Urine Bacteria Mod Influenza Typ A,B (EIA) Negative for flu a/b 10/21/18 10/21/18 16:03 16:15 WBC RBC Hgb Hct MCV MCH MCHC RDW Plt Count MPV Neut % (Auto) Lymph % (Auto) [place] % (Auto) Eos % (Auto) Baso % (Auto) Lymph # (Auto) [place] # (Auto) Eos # (Auto) Baso # (Auto) Absolute Neuts (auto) PT INR APTT D-Dimer, Quantitative Sodium Potassium Chloride Carbon Dioxide Anion Gap BUN Creatinine Est GFR ( Amer) Est GFR (Non-Af Amer) POC Glucose (mg/dL) 474 H* 371 H Random Glucose Calcium Magnesium Total Bilirubin AST ALT Alkaline Phosphatase Lactate Dehydrogenase Total Creatine Kinase Troponin I NT-Pro-B Natriuret Pep Total Protein Albumin Globulin Albumin/Globulin Ratio Lipase Urine Color Urine Appearance Urine pH Ur Specific [place] Urine Protein Urine Glucose (UA) Urine Ketones Urine Blood Urine Nitrate Urine Bilirubin Urine Urobilinogen Ur Leukocyte Esterase Urine RBC Urine WBC Ur Epithelial Cells Urine Bacteria Influenza Typ A,B (EIA) Assessment & Plan - Assessment and Plan (Free Text) Assessment: Pt is a 58 yo F with pmhx of Stage IV breast cancer (DX: 07/29/17) with mets to lungs and body of pelvis, CHF, HTN, DM2, Emphysema, Asthma, and Sleep apnea who presents to [facility] with worsening productive cough and SOB for the past 2 weeks with associated bilateral flank pain. Pt states that she was treated recently for bronchitis, 1 wk ago and given a Z pack but the SOB returned upon completion of abx course. CXR: NAD Plan: 1) COPD exacerbation: - CXR: NAD - Duonebs q2 PRN - Duonebs q6 an - Solumedrol 125 given in ED - Solumedrol 40 q12 - Levaquin 750 qd IV - Cont home Singulair - Cont to monitor 2) B/l Flank pain - CT abd/pelvis: L renal cyst, hx of hysterectomy - Cont to monitor 3) Hx of breast ca s/p b/l mastectomy: - Percocet 10/325 1 q6 PRN 4) Hx of Anxiety: - Cont home xanax 2mg qd PRN 5) Hx of HLD: - Cont home lipitor 6) Hx of DM: - ISS - Medium - Hypoglycemic protocol ordered PPx: GI: Protonix DVT: SCDs Case seen and discussed with Dr. Hardwick: Fabián Canas, PGY-1 <Dary Hardwick - Last Filed: 10/22/18 07:50> Results - Vital Signs Recent Vital Signs: Last Vital Signs Temp 98.0 F 10/22/18 06:00 Pulse 66 10/22/18 06:00 Resp 20 10/22/18 06:00 BP 112/51 L 10/22/18 06:00 Pulse Ox 98 10/22/18 06:00 - Labs Result Diagrams: 10/21/18 06:40 10/21/18 06:40 Labs: Laboratory Results - last 24 hr 10/21/18 10/21/18 10/21/18 06:40 06:40 06:40 PT 10.4 INR 0.92 APTT 36.1 D-Dimer, Quantitative < 200 POC Glucose (mg/dL) Troponin I < 0.01 NT-Pro-B Natriuret Pep 27.2 Urine Color Urine Appearance Urine pH Ur Specific [place] Urine Protein Urine Glucose (UA) Urine Ketones Urine Blood Urine Nitrate Urine Bilirubin Urine Urobilinogen Ur Leukocyte Esterase Urine RBC Urine WBC Ur Epithelial Cells Urine Bacteria Influenza Typ A,B (EIA) Negative for flu a/b 10/21/18 10/21/18 10/21/18 08:45 13:03 16:03 PT INR APTT D-Dimer, Quantitative POC Glucose (mg/dL) 162 H 474 H* Troponin I NT-Pro-B Natriuret Pep Urine Color Yellow Urine Appearance Sl cloudy Urine pH 6.0 Ur Specific [place] >= 1.030 Urine Protein Negative Urine Glucose (UA) Negative Urine Ketones Negative Urine Blood Moderate H Urine Nitrate Negative Urine Bilirubin Negative Urine Urobilinogen 0.2 Ur Leukocyte Esterase Trace H Urine RBC 10 - 15 H Urine WBC 2 - 5 Ur Epithelial Cells 4 - 5 Urine Bacteria Mod Influenza Typ A,B (EIA) 10/21/18 10/21/18 10/22/18 16:15 21:19 06:47 PT INR APTT D-Dimer, Quantitative POC Glucose (mg/dL) 371 H 281 H 227 H Troponin I NT-Pro-B Natriuret Pep Urine Color Urine Appearance Urine pH Ur Specific [place] Urine Protein Urine Glucose (UA) Urine Ketones Urine Blood Urine Nitrate Urine Bilirubin Urine Urobilinogen Ur Leukocyte Esterase Urine RBC Urine WBC Ur Epithelial Cells Urine Bacteria Influenza Typ A,B (EIA) Attending/Attestation - Attestation I have personally seen and examined this patient.: Yes I have fully participated in the care of the patient.: Yes I have reviewed all pertinent clinical information: Yes Notes (Text): 10/21/18 58 year old female with past medical history of COPD, metastatic breast cancer, diabetes, hypertension and chronic back pain who presents with shortness of breath secondary to COPD exacerbation with failed outpatient treatment. Continue with iv steroids, duonebs and antibiotics. She also reports chronic back/flank pain for which she is on percocet. CT abd/pelvis was negative. Dary Hardwick MD Hospitalist.
[2018-10-21] MEDS: Oxycodone/Acetaminophen 10/325 mg Tab PO PRN (20:19)
[2018-10-21] MEDS: MethylPREDNISolone 40 mg Vial IVP SCH (21:21)
[2018-10-21] MEDS: Insulin Lispro (humaLOG) MEDIUM Coverage SC SCH (22:25)
[2018-10-22] MEDS: Albuterol-Ipratrop 3 mg / 0.5 (3 ml) UD IH SCH ×4 (01:05→19:20)
[2018-10-22] MEDS: Pantoprazole 40 mg EC Tab PO SCH (05:26)
[2018-10-22 07:49] LABS: HEMOGLOBIN 10.8 g/dL (12.0-16.0); MEAN CELL VOLUME 95.9 fl (80.0-105.0); MEAN CORPUSCULAR HEMOGLOBIN 29.4 pg (25.0-35.0); MEAN CORPUSCULAR HGB CONC 30.7 g/dl (31.0-37.0); MEAN PLATELET VOLUME 8.7 fl (7.0-11.0); RBC 3.67 10^6/uL (3.5-6.1); RED CELL DISTRIBUTION WIDTH 15.1 % (11.5-14.5); WHITE BLOOD COUNT 9.1 10^3/uL (4.5-11.0)
[2018-10-22 08:17] LABS: BLOOD UREA NITROGEN 17 mg/dL (7-21); CALCIUM 9.6 mg/dL (8.4-10.5); GFR NON-AFRICAN AMERICAN 57
[2018-10-22] MEDS: Insulin Lispro (humaLOG) MEDIUM Coverage SC SCH ×4 (08:20→22:14)
[2018-10-22] MEDS: MethylPREDNISolone 40 mg Vial IVP SCH ×2 (10:13→22:18)
[2018-10-22] MEDS: levoFLOXacin 750 mg in D5W 750 MG/150 ML BAG IVPB SCH (10:13)
--- NOTE | 2018-10-22 15:56 | CP.PCM.PN ---
<Terrie Payton - Last Filed: 10/22/18 15:53> Subjective - Date & Time of Evaluation Date of Evaluation: 10/22/18 Time of Evaluation: 10:20 - Subjective Subjective: Terrie Payton, PGY2, Medicine Progress Note for Dr Hardwick: Patient seen and examined at bedside. Patient had a high blood glucose of 375, after eating [employer] food. Blood glucose was monitored, which trended down later. This AM, patient reports mild improvement in her breathing. However, patient still reports shortness of breath and cough. Denies fevers, chills, nausea, vomiting, abdominal pain, leg swelling, dysuria. Objective - Vital Signs/Intake and Output Vital Signs (last 24 hours): Temp Pulse Resp BP Pulse Ox 98 F 66 20 112/57 L 98 10/22/18 06:00 10/22/18 06:00 10/22/18 06:00 10/22/18 06:00 10/22/18 06:00 Intake and Output: 10/22/18 10/22/18 06:59 18:59 Intake Total 1020 Balance 1020 - Medications Medications: Current Medications Albuterol/Ipratropium (Duoneb 3 Mg/0.5 Mg (3 Ml) Ud) 3 ml IH Q2H PRN PRN Reason: Shortness of Breath Albuterol/Ipratropium (Duoneb 3 Mg/0.5 Mg (3 Ml) Ud) 3 ml IH [id number] [facility] Last Admin: 10/22/18 13:38 Dose: 3 ml Alprazolam (Xanax) 2 mg PO DAILY PRN; Protocol PRN Reason: Agitation Aspirin (Aspirin Chewable) 81 mg PO DAILY [facility] Last Admin: 10/22/18 10:13 Dose: 81 mg Atorvastatin Calcium (Lipitor) 20 mg PO DIN [facility] Last Admin: 10/21/18 17:44 Dose: 20 mg Dextrose (Dextrose 50% Inj) 0 ml IV STAT PRN; Protocol PRN Reason: Hypoglycemia Protocol Dextrose (Dextrose 5% In Water 1000 Ml) 1,000 mls @ 0 mls/hr IV .Q0M PRN; Protocol PRN Reason: Hypoglycemia Protocol Insulin Human Lispro (Humalog Med) 0 units SC [facility]; Protocol Last Admin: 10/22/18 11:40 Dose: 10 units Levofloxacin (Levaquin) 750 mg PO DAILY [facility]; Protocol Metformin HCl (Glucophage) 500 mg PO BID [facility] Methylprednisolone (Solu-Medrol) 40 mg IVP Q12 [facility] Last Admin: 10/22/18 10:13 Dose: 40 mg Montelukast Sodium (Singulair) 10 mg PO HS [facility] Last Admin: 10/21/18 21:20 Dose: 10 mg Oxycodone/Acetaminophen (Percocet 10/325 Mg Tab) 1 tab PO Q6H PRN PRN Reason: Pain, severe (8-10) Last Admin: 10/21/18 20:19 Dose: 1 tab Pantoprazole Sodium (Protonix Ec Tab) 40 mg PO 0600 [facility] Last Admin: 10/22/18 05:26 Dose: 40 mg - Labs Labs: 10/22/18 06:45 10/22/18 06:45 PT 10.4 SECONDS (9.4-12.5) 10/21/18 06:40 INR 0.92 10/21/18 06:40 APTT 36.1 Seconds (26.9-38.3) 10/21/18 06:40 - Constitutional Appears: Non-toxic, No Acute Distress - Head Exam Head Exam: ATRAUMATIC, NORMOCEPHALIC - Eye Exam Eye Exam: EOMI, PERRL. absent: Conjunctival injection, Nystagmus, Scleral icterus Pupil Exam: NORMAL ACCOMODATION, PERRL. absent: Irregular, Miosis, Unequal - ENT Exam ENT Exam: Mucous Membranes Moist - Neck Exam Neck Exam: Full ROM - Respiratory Exam Respiratory Exam: Wheezes (Wheezes bilaterally upper and lower lobes). absent: Accessory Muscle Use, Rales, Respiratory Distress, Stridor - Cardiovascular Exam Cardiovascular Exam: RRR, +S1, +S2. absent: Murmur - GI/Abdominal Exam GI & Abdominal Exam: Soft, Normal Bowel Sounds. absent: Firm, Guarding, Rigid, Tenderness, Mass, Organomegaly - Extremities Exam Extremities Exam: absent: Calf Tenderness, Pedal Edema - Back Exam Back Exam: NORMAL INSPECTION - Neurological Exam Neurological Exam: Alert, Awake, Oriented x3 - Psychiatric Exam Psychiatric exam: Normal Affect, Normal Mood - Skin Skin Exam: Dry, Normal Color, Warm Assessment and Plan - Assessment and Plan (Free Text) Assessment: This is a 58 yo F with pmhx of Stage IV breast cancer (DX: 07/29/17) with mets to lungs and body of pelvis, CHF, HTN, DM2, Emphysema, Asthma, and Sleep apnea, admitted for COPD exacerbation (failed outpatient treatment for bronchitis): COPD exacerbation: - CXR: NAD - Duonebs q6 an and q2 PRN - Solumedrol 125 given in ED - Will continue with Solumedrol 40 q12 - Levaquin 750 PO every day - Cont home Singulair - Cont to monitor B/l Flank pain: likely musculoskeletal - CT abd/pelvis: L renal cyst, hx of hysterectomy - home percocet prn - Cont to monitor Uncontrolled blood sugars: - BG [phone] - patient has a history of type 2 DM - will resume home metformin 500 PO BID - start carbohydrate consistent diet - low - changed IV levaquin (with D5W) to PO levaquin - monitor BG ACHS Hx of breast ca s/p b/l mastectomy: - Percocet 10325 1 q6 PRN - follows up with heme-onc outpatient Hx of Anxiety: - Cont home xanax 2mg qd PRN Hx of HLD: - Cont home lipitor PPx: GI: Protonix DVT: SCDs Case seen and discussed with Dr. Hardwick. <Dary Hardwick - Last Filed: 10/22/18 17:48> Objective - Vital Signs/Intake and Output Vital Signs (last 24 hours): Temp Pulse Resp BP Pulse Ox 98.2 F 89 20 105/62 95 10/22/18 14:00 10/22/18 14:00 10/22/18 14:00 10/22/18 14:00 10/22/18 14:00 Intake and Output: 10/22/18 10/22/18 06:59 18:59 Intake Total 1020 Balance 1020 - Medications Medications: Current Medications Albuterol/Ipratropium (Duoneb 3 Mg/0.5 Mg (3 Ml) Ud) 3 ml IH Q2H PRN PRN Reason: Shortness of Breath Albuterol/Ipratropium (Duoneb 3 Mg/0.5 Mg (3 Ml) Ud) 3 ml IH [id number] AN Last Admin: 10/22/18 13:38 Dose: 3 ml Alprazolam (Xanax) 2 mg PO DAILY PRN; Protocol PRN Reason: Agitation Aspirin (Aspirin Chewable) 81 mg PO DAILY [facility] Last Admin: 10/22/18 10:13 Dose: 81 mg Atorvastatin Calcium (Lipitor) 20 mg PO DIN [facility] Last Admin: 10/22/18 16:54 Dose: 20 mg Dextrose (Dextrose 50% Inj) 0 ml IV STAT PRN; Protocol PRN Reason: Hypoglycemia Protocol Dextrose (Dextrose 5% In Water 1000 Ml) 1,000 mls @ 0 mls/hr IV .Q0M PRN; Protocol PRN Reason: Hypoglycemia Protocol Insulin Human Lispro (Humalog Med) 0 units SC ACHS [facility]; Protocol Last Admin: 10/22/18 16:54 Dose: 5 units Levofloxacin (Levaquin) 750 mg PO DAILY [facility]; Protocol Metformin HCl (Glucophage) 500 mg PO BID [facility] Last Admin: 10/22/18 17:23 Dose: 500 mg Methylprednisolone (Solu-Medrol) 40 mg IVP Q12 [facility] Last Admin: 10/22/18 10:13 Dose: 40 mg Montelukast Sodium (Singulair) 10 mg PO HS [facility] Last Admin: 10/21/18 21:20 Dose: 10 mg Oxycodone/Acetaminophen (Percocet 10/325 Mg Tab) 1 tab PO Q6H PRN PRN Reason: Pain, severe (8-10) Last Admin: 10/21/18 20:19 Dose: 1 tab Pantoprazole Sodium (Protonix Ec Tab) 40 mg PO 0600 [facility] Last Admin: 10/22/18 05:26 Dose: 40 mg - Labs Labs: 10/22/18 06:45 10/22/18 06:45 PT 10.4 SECONDS (9.4-12.5) 10/21/18 06:40 INR 0.92 10/21/18 06:40 APTT 36.1 Seconds (26.9-38.3) 10/21/18 06:40 Attending/Attestation - Attestation I have personally seen and examined this patient.: Yes I have fully participated in the care of the patient.: Yes I have reviewed all pertinent clinical information, including history, physical exam and plan: Yes Notes (Text): 10/22/18 17:47 58 year old female with past medical history of COPD, metastatic breast cancer, diabetes, hypertension and chronic back pain who presented with shortness of breath secondary to COPD exacerbation with failed outpatient treatment. Continue with iv steroids, duonebs and antibiotics. Still has significant wheezing this morning; continue with same dose steroids for today. She also reported chronic back/flank pain for which she is on percocet. CT abd/pelvis was negative. Continue with insulin ss and metformin for diabetes. Dary Hardwick MD Hospitalist.
[2018-10-22] MEDS: Oxycodone/Acetaminophen 10/325 mg Tab PO PRN (23:51)
[2018-10-23] MEDS: Albuterol-Ipratrop 3 mg / 0.5 (3 ml) UD IH SCH ×4 (03:18→19:54)
[2018-10-23] MEDS: Pantoprazole 40 mg EC Tab PO SCH (05:18)
[2018-10-23 08:03] LABS: HEMOGLOBIN 10.8 g/dL (12.0-16.0); MEAN CELL VOLUME 96.2 fl (80.0-105.0); MEAN CORPUSCULAR HEMOGLOBIN 29.6 pg (25.0-35.0); MEAN CORPUSCULAR HGB CONC 30.8 g/dl (31.0-37.0); MEAN PLATELET VOLUME 8.8 fl (7.0-11.0); RBC 3.65 10^6/uL (3.5-6.1); RED CELL DISTRIBUTION WIDTH 15.2 % (11.5-14.5); WHITE BLOOD COUNT 10.7 10^3/uL (4.5-11.0)
[2018-10-23 08:43] LABS: BLOOD UREA NITROGEN 18 mg/dL (7-21); CALCIUM 9.3 mg/dL (8.4-10.5); GFR NON-AFRICAN AMERICAN > 60
[2018-10-23] MEDS: Insulin Lispro (humaLOG) MEDIUM Coverage SC SCH ×4 (09:55→22:00)
[2018-10-23] MEDS: Oxycodone/Acetaminophen 10/325 mg Tab PO PRN (10:18)
[2018-10-23] MEDS: levoFLOXacin 750 MG TAB PO SCH (10:20)
[2018-10-23] MEDS: MethylPREDNISolone 40 mg Vial IVP SCH ×2 (10:25→21:39)
--- NOTE | 2018-10-23 17:50 | CP.PCM.PN ---
<Rich Day - Last Filed: 10/23/18 17:54> Subjective - Date & Time of Evaluation Date of Evaluation: 10/23/18 Time of Evaluation: 09:30 - Subjective Subjective: Rich Day DO, PGY-1 Hospitalist Progress Note for Dr. Hardwick Patient was seen and examined at bedside this AM. She reports feeling better this AM but still has intermittent SOB. Blood sugars were improved overnight. She otherwise denies fever/chills, CP, worsening cough or wheezing, nausea/vomiting, or urinary complaints. Objective - Vital Signs/Intake and Output Vital Signs (last 24 hours): Temp Pulse Resp BP Pulse Ox 98.2 F 61 18 121/59 L 99 10/23/18 14:00 10/23/18 14:00 10/23/18 14:00 10/23/18 14:00 10/23/18 14:00 Intake and Output: 10/23/18 10/23/18 06:59 18:59 Intake Total 780 Balance 780 - Medications Medications: Current Medications Albuterol/Ipratropium (Duoneb 3 Mg/0.5 Mg (3 Ml) Ud) 3 ml IH Q2H PRN PRN Reason: Shortness of Breath Albuterol/Ipratropium (Duoneb 3 Mg/0.5 Mg (3 Ml) Ud) 3 ml IH [id number] [facility] Last Admin: 10/23/18 14:26 Dose: 3 ml Alprazolam (Xanax) 2 mg PO DAILY PRN; Protocol PRN Reason: Agitation Last Admin: 10/23/18 10:23 Dose: 2 mg Aspirin (Aspirin Chewable) 81 mg PO DAILY [facility] Last Admin: 10/23/18 10:24 Dose: 81 mg Atorvastatin Calcium (Lipitor) 20 mg PO DIN [facility] Last Admin: 10/22/18 16:54 Dose: 20 mg Dextrose (Dextrose 50% Inj) 0 ml IV STAT PRN; Protocol PRN Reason: Hypoglycemia Protocol Dextrose (Dextrose 5% In Water 1000 Ml) 1,000 mls @ 0 mls/hr IV .Q0M PRN; Protocol PRN Reason: Hypoglycemia Protocol Insulin Human Lispro (Humalog Med) 0 units SC ACHS [facility]; Protocol Last Admin: 10/23/18 14:20 Dose: 3 units Levofloxacin (Levaquin) 750 mg PO DAILY [facility]; Protocol Last Admin: 10/23/18 10:20 Dose: 750 mg Metformin HCl (Glucophage) 500 mg PO BID AN Last Admin: 10/23/18 10:24 Dose: 500 mg Methylprednisolone (Solu-Medrol) 30 mg IVP Q12 AN Montelukast Sodium (Singulair) 10 mg PO HS AN Last Admin: 10/22/18 22:19 Dose: 10 mg Oxycodone/Acetaminophen (Percocet 10/325 Mg Tab) 1 tab PO Q6H PRN PRN Reason: Pain, severe (8-10) Last Admin: 10/23/18 10:18 Dose: 1 tab Pantoprazole Sodium (Protonix Ec Tab) 40 mg PO 0600 AN Last Admin: 10/23/18 05:18 Dose: 40 mg - Labs Labs: 10/23/18 07:15 10/23/18 07:15 PT 10.4 SECONDS (9.4-12.5) 10/21/18 06:40 INR 0.92 10/21/18 06:40 APTT 36.1 Seconds (26.9-38.3) 10/21/18 06:40 - Constitutional Appears: Non-toxic, No Acute Distress - Head Exam Head Exam: ATRAUMATIC, NORMOCEPHALIC - Eye Exam Eye Exam: EOMI, Normal appearance, PERRL - ENT Exam ENT Exam: Mucous Membranes Moist - Neck Exam Neck Exam: Full ROM, Normal Inspection - Respiratory Exam Respiratory Exam: Wheezes (end expiratory wheezes b/l). absent: Accessory Muscle Use, Rales, Rhonchi, Respiratory Distress - Cardiovascular Exam Cardiovascular Exam: REGULAR RHYTHM, RRR, +S1, +S2. absent: Gallop, Rubs, Murmur - GI/Abdominal Exam GI & Abdominal Exam: Soft, Normal Bowel Sounds. absent: Tenderness - Extremities Exam Extremities Exam: Full ROM, Normal Inspection - Back Exam Back Exam: NORMAL INSPECTION - Neurological Exam Neurological Exam: Alert, Awake, Oriented x3 - Psychiatric Exam Psychiatric exam: Normal Affect, Normal Mood - Skin Skin Exam: Dry, Intact, Warm Assessment and Plan - Assessment and Plan (Free Text) Assessment: 58 yo F with PMH of Stage IV breast cancer (diagnosed 07/29/17 with mets to lungs and body of pelvis), CHF, HTN, DM2, Emphysema, Asthma, and SEVERO admitted for COPD exacerbation. Plan: COPD exacerbation CXR in ED showed no active disease Duonebs q6h an and q2h PRN Solumedrol 125 given in ED Wean solumedrol to 30 mg q12h Continue Levaquin 750 PO every day Continue home Singulair Continue to monitor for improvement B/l Flank pain Suspect most likely 2/[address] abd/pelvis: L renal cyst, hx of hysterectomy Continue home percocet PRN Hyperglycemia Improved overnight but still requiring sliding scale coverage Continue home metformin 500 PO BID Continue carbohydrate consistent diet - low Continue ISS, fingerstick glucose ACHS Hx breast ca s/p b/l mastectomy Continue Percocet 10/325 1 q6 PRN - follows up with heme-onc outpatient Hx Anxiety Continue home xanax 2mg qd PRN Hx mixed HLD Continue home lipitor DVT/GI PPX: SCD/protonix Full Code HH, consistent low CHO diet Monitor on med/surg Patient seen, examined, and plan discussed with my attending Dr. Mulu Day, D.O. IM Resident PGY-1 Pager: [phone] <Dary Hardwick - Last Filed: 10/23/18 18:25> Objective - Vital Signs/Intake and Output Vital Signs (last 24 hours): Temp Pulse Resp BP Pulse Ox 98.2 F 61 18 121/59 L 99 10/23/18 14:00 10/23/18 14:00 10/23/18 14:00 10/23/18 14:00 10/23/18 14:00 Intake and Output: 10/23/18 10/23/18 06:59 18:59 Intake Total 780 Balance 780 - Medications Medications: Current Medications Albuterol/Ipratropium (Duoneb 3 Mg/0.5 Mg (3 Ml) Ud) 3 ml IH Q2H PRN PRN Reason: Shortness of Breath Albuterol/Ipratropium (Duoneb 3 Mg/0.5 Mg (3 Ml) Ud) 3 ml IH [id number] AN Last Admin: 10/23/18 14:26 Dose: 3 ml Alprazolam (Xanax) 2 mg PO DAILY PRN; Protocol PRN Reason: Agitation Last Admin: 10/23/18 10:23 Dose: 2 mg Aspirin (Aspirin Chewable) 81 mg PO DAILY AN Last Admin: 10/23/18 10:24 Dose: 81 mg Atorvastatin Calcium (Lipitor) 20 mg PO DIN [facility] Last Admin: 10/23/18 17:59 Dose: 20 mg Dextrose (Dextrose 50% Inj) 0 ml IV STAT PRN; Protocol PRN Reason: Hypoglycemia Protocol Dextrose (Dextrose 5% In Water 1000 Ml) 1,000 mls @ 0 mls/hr IV .Q0M PRN; Protocol PRN Reason: Hypoglycemia Protocol Insulin Human Lispro (Humalog Med) 0 units SC ACHS AN; Protocol Last Admin: 10/23/18 17:57 Dose: Not Given Levofloxacin (Levaquin) 750 mg PO DAILY [facility]; Protocol Last Admin: 10/23/18 10:20 Dose: 750 mg Metformin HCl (Glucophage) 500 mg PO BID [facility] Last Admin: 10/23/18 17:59 Dose: 500 mg Methylprednisolone (Solu-Medrol) 30 mg IVP Q12 [facility] Montelukast Sodium (Singulair) 10 mg PO HS [facility] Last Admin: 10/22/18 22:19 Dose: 10 mg Oxycodone/Acetaminophen (Percocet 10/325 Mg Tab) 1 tab PO Q6H PRN PRN Reason: Pain, severe (8-10) Last Admin: 10/23/18 10:18 Dose: 1 tab Pantoprazole Sodium (Protonix Ec Tab) 40 mg PO 0600 [facility] Last Admin: 10/23/18 05:18 Dose: 40 mg - Labs Labs: 10/23/18 07:15 10/23/18 07:15 PT 10.4 SECONDS (9.4-12.5) 10/21/18 06:40 INR 0.92 10/21/18 06:40 APTT 36.1 Seconds (26.9-38.3) 10/21/18 06:40 Attending/Attestation - Attestation I have personally seen and examined this patient.: Yes I have fully participated in the care of the patient.: Yes I have reviewed all pertinent clinical information, including history, physical exam and plan: Yes Notes (Text): 10/23/18 18:23 58 year old female with past medical history of COPD, metastatic breast cancer, diabetes, hypertension and chronic back pain who presented with shortness of breath secondary to COPD exacerbation with failed outpatient treatment. Continue with iv steroids, duonebs and antibiotics. Wheezing is improving so will begin to taper iv steroids today. She also reported chronic back/flank pain for which she is on percocet. CT abd/pelvis was negative. Continue with insulin ss and metformin for diabetes. Likely d/c planning 24-48 hrs if wheezing continues to improve. Dary Hardwick MD Hospitalist.
[2018-10-24] MEDS: Oxycodone/Acetaminophen 10/325 mg Tab PO PRN (00:16)
[2018-10-24] MEDS: Albuterol-Ipratrop 3 mg / 0.5 (3 ml) UD IH SCH ×3 (02:15→13:14)
[2018-10-24] MEDS: Pantoprazole 40 mg EC Tab PO SCH (06:44)
[2018-10-24 07:10] LABS: HEMOGLOBIN 11.4 g/dL (12.0-16.0); MEAN CELL VOLUME 96.3 fl (80.0-105.0); MEAN CORPUSCULAR HEMOGLOBIN 30.2 pg (25.0-35.0); MEAN CORPUSCULAR HGB CONC 31.4 g/dl (31.0-37.0); MEAN PLATELET VOLUME 8.8 fl (7.0-11.0); RBC 3.77 10^6/uL (3.5-6.1); RED CELL DISTRIBUTION WIDTH 15.3 % (11.5-14.5); WHITE BLOOD COUNT 7.3 10^3/uL (4.5-11.0)
[2018-10-24 07:41] LABS: BLOOD UREA NITROGEN 22 mg/dL (7-21); CALCIUM 9.5 mg/dL (8.4-10.5); GFR NON-AFRICAN AMERICAN > 60
[2018-10-24] MEDS: Insulin Lispro (humaLOG) MEDIUM Coverage SC SCH ×2 (08:17→11:56)
[2018-10-24 08:34] VITALS: BP 103/55; PULSE 79; RESP 18; TEMP 97.3; O2SAT 94
[2018-10-24] MEDS: levoFLOXacin 750 MG TAB PO SCH (09:33)
[2018-10-24] MEDS: MethylPREDNISolone 40 mg Vial IVP SCH (09:34)
[2018-10-24] MEDS ORDERED: Pneumococcal 23-Valent Vaccine IM ONE (14:39)
--- NOTE | 2018-10-24 15:23 | CP.PCM.DIS ---
<MissaelLockwood - Last Filed: 10/25/18 23:27> Provider - Provider Date of Admission: 10/21/18 10:03 Attending physician: Dary Hardwick MD Consults: 10/21/18 15:41 Inpatient ULTRASONIC TESTER Core Measures Referral Routine Comment: COPD Physician Instructions: Reason For Exam: EVALUATION Transition In Care/Readmission Reduction Routine Comment: Physician Instructions: Reason For Exam: EVALUATION Time Spent in preparation of Discharge (in minutes): 45 Diagnosis - Discharge Diagnosis (1) Asthma Status: Acute (2) COPD (chronic obstructive pulmonary disease) Status: Acute Hospital Course - Lab Results Lab Results: Micro Results 10/21/18 10:41 Urine,Clean Catch Urine Culture - Final No Growth (<1,000 CFU/ML) Most Recent Lab Values WBC 7.3 10^3/uL (4.5-11.0) D 10/24/18 06:15 RBC 3.77 10^6/uL (3.5-6.1) 10/24/18 06:15 Hgb 11.4 g/dL (12.0-16.0) L 10/24/18 06:15 Hct 36.3 % (36.0-48.0) 10/24/18 06:15 MCV 96.3 fl (80.0-105.0) 10/24/18 06:15 MCH 30.2 pg (25.0-35.0) 10/24/18 06:15 MCHC 31.4 g/dl (31.0-37.0) 10/24/18 06:15 RDW 15.3 % (11.5-14.5) H 10/24/18 06:15 Plt Count 276 10^3/uL (120.0-450.0) 10/24/18 06:15 MPV 8.8 fl (7.0-11.0) 10/24/18 06:15 Neut % (Auto) 60.6 % (50.0-68.0) 10/21/18 06:40 Lymph % (Auto) 31.4 % (22.0-35.0) 10/21/18 06:40 [place] % (Auto) 5.9 % (1.0-6.0) 10/21/18 06:40 Eos % (Auto) 1.5 % (1.5-5.0) 10/21/18 06:40 Baso % (Auto) 0.6 % (0.0-3.0) 10/21/18 06:40 Lymph # (Auto) 1.7 (1.2-3.4) 10/21/18 06:40 [place] # (Auto) 0.3 (0.1-0.6) 10/21/18 06:40 Eos # (Auto) 0.1 (0.0-0.7) 10/21/18 06:40 Baso # (Auto) 0.03 K/mm3 (0.0-2.0) 10/21/18 06:40 Absolute Neuts (auto) 3.26 (1.4-6.5) 10/21/18 06:40 PT 10.4 SECONDS (9.4-12.5) 10/21/18 06:40 INR 0.92 10/21/18 06:40 APTT 36.1 Seconds (26.9-38.3) 10/21/18 06:40 D-Dimer, Quantitative < 200 ng/mlDDU (0-243) 10/21/18 06:40 Sodium 138 mmol/L (132-148) 10/24/18 06:15 Potassium 4.5 mmol/L (3.6-5.0) 10/24/18 06:15 Chloride 106 mmol/L (98-107) 10/24/18 06:15 Carbon Dioxide 25 mmol/L (21-33) 10/24/18 06:15 Anion Gap 11 (10-20) 10/24/18 06:15 BUN 22 mg/dL (7-21) H 10/24/18 06:15 Creatinine 0.9 mg/dl (0.7-1.2) 10/24/18 06:15 Est GFR ( Amer) > 60 10/24/18 06:15 Est GFR (Non-Af Amer) > 60 10/24/18 06:15 POC Glucose (mg/dL) 123 mg/dL (65-110) H 10/23/18 21:37 Random Glucose 191 mg/dL (70-110) H 10/24/18 06:15 Calcium 9.5 mg/dL (8.4-10.5) 10/24/18 06:15 Magnesium 2.0 mg/dL (1.7-2.2) 10/21/18 06:40 Total Bilirubin 0.3 mg/dL (0.2-1.3) 10/21/18 06:40 AST 25 U/L (14-36) 10/21/18 06:40 ALT 27 U/L (7-56) 10/21/18 06:40 Alkaline Phosphatase 59 U/L (38-126) 10/21/18 06:40 Lactate Dehydrogenase 399 U/L (333-699) 10/21/18 06:40 Total Creatine Kinase 43 U/L (35-230) 10/21/18 06:40 Troponin I < 0.01 ng/mL 10/21/18 06:40 NT-Pro-B Natriuret Pep 27.2 pg/mL (0-450) 10/21/18 06:40 Total Protein 7.4 g/dL (5.8-8.3) 10/21/18 06:40 Albumin 4.2 g/dL (3.0-4.8) 10/21/18 06:40 Globulin 3.2 gm/dL 10/21/18 06:40 Albumin/Globulin Ratio 1.3 (1.1-1.8) 10/21/18 06:40 Lipase 141 U/L (23-300) 10/21/18 06:40 Urine Color Yellow (YELLOW) 10/21/18 08:45 Urine Appearance Sl cloudy (CLEAR) 10/21/18 08:45 Urine pH 6.0 (4.7-8.0) 10/21/18 08:45 Ur Specific [place] >= 1.030 (1.005-1.035) 10/21/18 08:45 Urine Protein Negative mg/dL (<30 mg/dL) 10/21/18 08:45 Urine Glucose (UA) Negative mg/dL (NEGATIVE) 10/21/18 08:45 Urine Ketones Negative mg/dL (NEGATIVE) 10/21/18 08:45 Urine Blood Moderate (NEGATIVE) H 10/21/18 08:45 Urine Nitrate Negative (NEGATIVE) 10/21/18 08:45 Urine Bilirubin Negative (NEGATIVE) 10/21/18 08:45 Urine Urobilinogen 0.2 E.U./dL (<1 E.U./dL) 10/21/18 08:45 Ur Leukocyte Esterase Trace [place]/uL (NEGATIVE) H 10/21/18 08:45 Urine RBC 10 - 15 /hpf (0-2) H 10/21/18 08:45 Urine WBC 2 - 5 /hpf (0-6) 10/21/18 08:45 Ur Epithelial Cells 4 - 5 /hpf (0-5) 10/21/18 08:45 Urine Bacteria Mod /hpf (NONE) 10/21/18 08:45 Influenza Typ A,B (EIA) Negative for flu a/b (NEGATIVE) 10/21/18 06:40 - Hospital Course Hospital Course: Upon Admission: Pt is a 58 yo F with pmhx of Stage IV breast cancer (DX: 07/29/17) with mets to lungs and body of pelvis, CHF, HTN, DM2, Emphysema, Asthma, and Sleep apnea who presents to [facility] ED with worsening productive cough and SOB for the past 2 weeks with associated bilateral flank pain. Pt is a poor historian but does state that she was diagnosed with bronchitis and was treated this past week with antibiotics (Z-pack) which she finished; however, her shortness of breath and cough did not improve. Patient states that she feels "pain in her lungs" which she rated as a 10/10 upon inhalation and exhalation that radiates to the epigastric/diaphragm region and bilaterally to both flanks. She also admits to SOB on exertion (walking in her house). She states she had used her inhaler which would only temporarily improve her SOB. When asked, PT admits that she has increased used of her daily inhaler (5x a day) and has been waking up every night with SOB but also admits to not have a CPAP machine for her sleep apnea. She currently denies having fevers, chills, lightheadedness, dizziness, chest pain, abd pain, n/v, c/s, or dysuria. Hospital Course: Patient was examined by by the medical team (Dr. Hardwick and Dr. Robertson) and evaluated for SOB secondary to COPD exacerbation with failed outpatient treatment. For SOB, Patient was placed on IV steroids, duonebs and antibiotics. For chronic back/flank pain, Pt was placed on percocet. Pt recieved an abdominal/pelvis CT which revealed left renal cysts and hysterectomy but was negative for any disease. Patients sugars were controlled with insulin sliding scale and metformin. Patient's anxiety was controlled by home xanax and HLD was controlled by home lipitor. Pts wheezing has improved significantly on her 4th day of stay. Pt was started on levaquin and then noted to have improved clinically, so levaquin was d/herrera. Medical plan for d/c was made as pt no longer had any clinical symptoms of COPD exacerbation. Plan for discharge was discussed with the pt and the pt expressed understanding and agreement with plan for discharge. All of the pts questions and concenrs were addressed prior to d/c. Pt was given a refill of her home inhalers and given prednisone taper as prescriptions prior to d/c. Discharge Exam - Head Exam Head Exam: ATRAUMATIC, NORMOCEPHALIC - Eye Exam Eye Exam: Conjunctival injection, EOMI, Normal appearance - Respiratory Exam Respiratory Exam: Clear to PA & Lateral, NORMAL BREATHING PATTERN, UNREMARKABLE. absent: Accessory Muscle Use, Rales, Rhonchi, Wheezes, Respiratory Distress, Stridor - Cardiovascular Exam Cardiovascular Exam: RRR, +S1, +S2. absent: Gallop, Rubs - GI/Abdominal Exam GI & Abdominal Exam: Normal Bowel Sounds, Soft, Unremarkable. absent: Distended, Firm, Guarding, Tenderness - Extremities Exam Extremities exam: normal capillary refill, normal inspection, pedal pulses present - Back Exam Back exam: NORMAL INSPECTION. absent: CVA tenderness (L), CVA tenderness (R) - Neurological Exam Neurological exam: Alert, Oriented x3 - Psychiatric Exam Psychiatric exam: Normal Affect, Normal Mood - Skin Skin Exam: Dry, Intact, Normal Color, Warm Discharge Plan - Discharge Medications Prescriptions: Budesonide/Formoterol Fumarate [Symbicort] 2 aer IH BID 30 Days aer RX: predniSONE [predniSONE Tab] See Taper PO DAILY 8 Days #30 tab - Follow Up Plan Condition: GOOD Disposition: HOME/ ROUTINE Instructions: Flu, Hyperglycemia, Adult, Smoking: Not Just Harmful to Your Lungs and Heart, Diabetes Exchange Diet, Dangers of Secondhand Smoke, Pneumonia, Adult (DC), Exacerbation of COPD, Inhalers, Medicines for Chronic Obstructive Pulmonary Disease (COPD), Influenza Virus Vaccine (Inactivated), Why Vaccines Are Important for Everyone, Risk Factors for COPD Additional Instructions: - Please follow up with your Primary Care Doctor, Dr. Dumas within 1 week after discharge for follow up. - Please Continue your home inhalers as prescribed. - Please continue to take all of your other home medications as directed. - You were given steroids at this hospital. You cannot stop steroids abruptly, so we have given you a new medication, Prednisone which you will have to taper. So please take 40mg (4 pills) of Prednisone by mouth daily for the first 2 days, then decrease the dose of the medication to 30mg (3 pills) by mouth daily for the next 2 days, then again decrease the dose to 20 mg (2 pills) by mouth daily for 2 days and finally take 10mg (1 pill) by mouth daily for the final 2 days. - If you have any new or returning symptoms please return to the emergency department. Referrals: Olga Dumas MD [Family Provider] - <Duncan Robertson - Last Filed: 10/26/18 14:57> Provider - Provider Date of Admission: 10/21/18 10:03 Attending physician: Dary Hardwick MD Consults: 10/21/18 15:41 Inpatient ULTRASONIC TESTER Core Measures Referral Routine Comment: COPD Physician Instructions: Reason For Exam: EVALUATION Transition In Care/Readmission Reduction Routine Comment: Physician Instructions: Reason For Exam: EVALUATION Hospital Course - Lab Results Lab Results: Micro Results 10/21/18 10:41 Urine,Clean Catch Urine Culture - Final No Growth (<1,000 CFU/ML) Most Recent Lab Values WBC 7.3 10^3/uL (4.5-11.0) D 10/24/18 06:15 RBC 3.77 10^6/uL (3.5-6.1) 10/24/18 06:15 Hgb 11.4 g/dL (12.0-16.0) L 10/24/18 06:15 Hct 36.3 % (36.0-48.0) 10/24/18 06:15 MCV 96.3 fl (80.0-105.0) 10/24/18 06:15 MCH 30.2 pg (25.0-35.0) 10/24/18 06:15 MCHC 31.4 g/dl (31.0-37.0) 10/24/18 06:15 RDW 15.3 % (11.5-14.5) H 10/24/18 06:15 Plt Count 276 10^3/uL (120.0-450.0) 10/24/18 06:15 MPV 8.8 fl (7.0-11.0) 10/24/18 06:15 Neut % (Auto) 60.6 % (50.0-68.0) 10/21/18 06:40 Lymph % (Auto) 31.4 % (22.0-35.0) 10/21/18 06:40 [place] % (Auto) 5.9 % (1.0-6.0) 10/21/18 06:40 Eos % (Auto) 1.5 % (1.5-5.0) 10/21/18 06:40 Baso % (Auto) 0.6 % (0.0-3.0) 10/21/18 06:40 Lymph # (Auto) 1.7 (1.2-3.4) 10/21/18 06:40 [place] # (Auto) 0.3 (0.1-0.6) 10/21/18 06:40 Eos # (Auto) 0.1 (0.0-0.7) 10/21/18 06:40 Baso # (Auto) 0.03 K/mm3 (0.0-2.0) 10/21/18 06:40 Absolute Neuts (auto) 3.26 (1.4-6.5) 10/21/18 06:40 PT 10.4 SECONDS (9.4-12.5) 10/21/18 06:40 INR 0.92 10/21/18 06:40 APTT 36.1 Seconds (26.9-38.3) 10/21/18 06:40 D-Dimer, Quantitative < 200 ng/mlDDU (0-243) 10/21/18 06:40 Sodium 138 mmol/L (132-148) 10/24/18 06:15 Potassium 4.5 mmol/L (3.6-5.0) 10/24/18 06:15 Chloride 106 mmol/L (98-107) 10/24/18 06:15 Carbon Dioxide 25 mmol/L (21-33) 10/24/18 06:15 Anion Gap 11 (10-20) 10/24/18 06:15 BUN 22 mg/dL (7-21) H 10/24/18 06:15 Creatinine 0.9 mg/dl (0.7-1.2) 10/24/18 06:15 Est GFR ( Amer) > 60 10/24/18 06:15 Est GFR (Non-Af Amer) > 60 10/24/18 06:15 POC Glucose (mg/dL) 182 mg/dL (65-110) H 10/24/18 10:52 Random Glucose 191 mg/dL (70-110) H 10/24/18 06:15 Calcium 9.5 mg/dL (8.4-10.5) 10/24/18 06:15 Magnesium 2.0 mg/dL (1.7-2.2) 10/21/18 06:40 Total Bilirubin 0.3 mg/dL (0.2-1.3) 10/21/18 06:40 AST 25 U/L (14-36) 10/21/18 06:40 ALT 27 U/L (7-56) 10/21/18 06:40 Alkaline Phosphatase 59 U/L (38-126) 10/21/18 06:40 Lactate Dehydrogenase 399 U/L (333-699) 10/21/18 06:40 Total Creatine Kinase 43 U/L (35-230) 10/21/18 06:40 Troponin I < 0.01 ng/mL 10/21/18 06:40 NT-Pro-B Natriuret Pep 27.2 pg/mL (0-450) 10/21/18 06:40 Total Protein 7.4 g/dL (5.8-8.3) 10/21/18 06:40 Albumin 4.2 g/dL (3.0-4.8) 10/21/18 06:40 Globulin 3.2 gm/dL 10/21/18 06:40 Albumin/Globulin Ratio 1.3 (1.1-1.8) 10/21/18 06:40 Lipase 141 U/L (23-300) 10/21/18 06:40 Urine Color Yellow (YELLOW) 10/21/18 08:45 Urine Appearance Sl cloudy (CLEAR) 10/21/18 08:45 Urine pH 6.0 (4.7-8.0) 10/21/18 08:45 Ur Specific [place] >= 1.030 (1.005-1.035) 10/21/18 08:45 Urine Protein Negative mg/dL (<30 mg/dL) 10/21/18 08:45 Urine Glucose (UA) Negative mg/dL (NEGATIVE) 10/21/18 08:45 Urine Ketones Negative mg/dL (NEGATIVE) 10/21/18 08:45 Urine Blood Moderate (NEGATIVE) H 10/21/18 08:45 Urine Nitrate Negative (NEGATIVE) 10/21/18 08:45 Urine Bilirubin Negative (NEGATIVE) 10/21/18 08:45 Urine Urobilinogen 0.2 E.U./dL (<1 E.U./dL) 10/21/18 08:45 Ur Leukocyte Esterase Trace [place]/uL (NEGATIVE) H 10/21/18 08:45 Urine RBC 10 - 15 /hpf (0-2) H 10/21/18 08:45 Urine WBC 2 - 5 /hpf (0-6) 10/21/18 08:45 Ur Epithelial Cells 4 - 5 /hpf (0-5) 10/21/18 08:45 Urine Bacteria Mod /hpf (NONE) 10/21/18 08:45 Influenza Typ A,B (EIA) Negative for flu a/b (NEGATIVE) 10/21/18 06:40 Attending/Attestation - Attestation I have personally seen and examined this patient.: Yes I have fully participated in the care of the patient.: Yes I have reviewed all pertinent clinical information, including history, physical exam and plan: Yes Notes (Text): 10/26/18 14:54 Medical record note made by the resident after discussion with my direction and input after the patient was personally seen and examined by me. I have reviewed the chart and agree that the record accurately reflects by personal performance of the history, physical exam, data review, and medical decision-making, in the course for the patient. I have also personally directed the plan of care. - 58 year old female with past medical history of COPD, metastatic breast cancer, diabetes, hypertension and chronic back pain who presented with shortness of breath secondary to COPD exacerbation with failed outpatient treatment. Patient has responded well to steroids, duonebs and antibiotics. Wheezing and dyspnea has improved. She will be discharged home on tapering dose of prednisone, Albuterol inhaler, Budesonide/Formoterol Fumarate [Symbicort] 2 aer IH BID. She will follow up with PCP. Management plan was discussed in detail with patient. Education was provided. 10/26/18 14:56
--- NOTE | 2018-10-28 14:44 | PQF ---
PROVIDER RESPONSE TEXT: Copd exacerbation REVIEWER QUERY TEXT: Asthma Specificity and Type Asthma is documented in the Medical Record. Please specify the type and severity of asthma and indic ate if this is associated with exacerbation or status asthmaticus. Such as: -- Mild intermittent -- Mild persistent -- Moderate persistent -- Severe persistent -- Exercise induced bronchospasm -- Cough variant asthma -- Other, please specify The patient's Clinical Indicators include: Asthma and COPD documented in the discharge summary. Please specify type and severity of asthma Query created by: Kalpana Roblero on 10/27/2018 6:57 AM Electronically signed by: Dary Hardwick MD 10/28/2018 2:40 PM
== END 2018-10-24 16:11 | disposition home or self-care (01) | DRG 191 ==
LOC: ED 06:17 → ERH 10:03 → 5RNO 12:05
PROVIDERS: ADMIT Internal Medicine; ATTEND Internal Medicine
DX: J43.9 Emphysema, unspecified (principal); C78.00 Secondary malignant neoplasm of unspecified lung; C79.51 Secondary malignant neoplasm of bone; E11.65 Type 2 diabetes mellitus with hyperglycemia; I11.0 Hypertensive heart disease with heart failure; I50.9 Heart failure, unspecified; F03.90 Unspecified dementia, unspecified severity, without behavioral disturbance, psychotic disturbance, mood disturbance, and anxiety; E78.5 Hyperlipidemia, unspecified; G47.33 Obstructive sleep apnea (adult) (pediatric); F41.9 Anxiety disorder, unspecified; N28.1 Cyst of kidney, acquired; Z79.84 Long term (current) use of oral hypoglycemic drugs; Z85.3 Personal history of malignant neoplasm of breast; Z90.13 Acquired absence of bilateral breasts and nipples

== ENCOUNTER 2018-11-22 14:29 | Emergency (ER) | payer MEDICARE, MEDICAID ==
[2018-11-22 14:29] VITALS: BMI 32.4
[2018-11-22 14:40] VITALS: TEMP 99
[2018-11-22] MEDS ORDERED: Dexamethasone 12 MG in Sodium Chloride 0.9% 50 ML IV ONE (15:01)
[2018-11-22] MEDS ORDERED: Morphine 4 mg/ml ISec IVP STA (15:02)
[2018-11-22] MEDS: Albuterol-Ipratrop 3 mg / 0.5 (3 ml) UD IH SCH ×3 (15:08→15:49)
--- NOTE | 2018-11-22 15:11 | ED PDOC ---
Arrival/HPI - General Chief Complaint: Shortness Of Breath Time Seen by Provider: 11/22/18 14:38 Historian: Patient - History of Present Illness Narrative History of Present Illness (Text): 11/22/18 15:15 58 year old F with pmhx of Stage IV breast cancer (DX: 07/29/17) with mets to lungs, chest, brain, esophagus and body of pelvis, CHF, HTN, DM2, Emphysema, Asthma, seizures and Sleep apnea presents to the Emergency department c omplaining of productive cough w brown sputum, back pain, left shoulder pain, dizziness, nausea and epigastric pain x4 days. Patient mentions her last radiation was 8 months ago. Patient denies fevers, chills, chest pain, shortness of breath, dyspnea on exertion, vomiting, diarrhea, neck pain, or any other complaints. Time/Duration: < week Symptom Onset: Gradual Symptom Course: Unchanged Activities at Onset: Light Context: Home Past Medical History - Provider Review Nursing Documentation Reviewed: Yes - Infectious Disease Hx of Infectious Diseases: None - Tetanus Immunization Tetanus Immunization: Unknown - Cardiac Hx Cardiac Disorders: Yes Hx Congestive Heart Failure: Yes Hx Hypertension: Yes - Pulmonary Hx Respiratory Disorders: Yes Hx Asthma: Yes Hx Bronchitis: Yes Hx Emphysema: Yes Hx Sleep Apnea: Yes - Neurological Hx Neurological Disorder: Yes Hx Dementia: Yes Hx Dizziness: Yes - HEENT Hx HEENT Disorder: No - Renal Hx Renal Disorder: Yes Hx Renal Failure: Yes - Endocrine/Metabolic Hx Endocrine Disorders: Yes Hx Diabetes Mellitus Type 2: Yes - Hematological/Oncological Hx Blood Disorders: Yes Hx Cancer: Yes Hx Chemotherapy: Yes Other/Comment: METASTATIC - Integumentary Hx Dermatological Disorder: Yes - Musculoskeletal/Rheumatological Hx Musculoskeletal Disorders: Yes Hx Back Pain: Yes Hx Falls: No Hx Herniated Disk: Yes Hx Osteoarthritis: Yes Hx Unsteady Gait: Yes (CANE WALKER) - Gastrointestinal Hx Gastrointestinal Disorders: Yes (GASTRITIS) Hx Gastritis: Yes HX Swallowing Problems: Yes - Genitourinary/Gynecological Hx Genitourinary Disorders: No - Psychiatric Hx Psychophysiologic Disorder: Yes Hx Anxiety: Yes Hx Depression: Yes Hx Substance Use: No - Surgical History Hx Cholecystectomy: Yes Hx Hysterectomy: Yes Hx Orthopedic Surgery: Yes - Anesthesia Hx Anesthesia: Yes Hx Anesthesia Reactions: No Hx Malignant Hyperthermia: No - Suicidal Assessment Feels Threatened In Home Enviroment: No Family/Social History - Physician Review Nursing Documentation Reviewed: Yes Family/Social History: No Known Family HX Smoking Status: Former Smoker Hx Alcohol Use: No Hx Substance Use: No Allergies/Home Meds Allergies/Adverse Reactions: Allergies FISH Allergy (Verified 11/22/18 14:34) RASH PARTICULARLY TILAPIA strawberry Allergy (Verified 11/22/18 14:34) RASH cranberry Adverse Reaction (Verified 11/22/18 14:34) ITCHING peanut Adverse Reaction (Verified 11/22/18 14:34) RASH Home Medications: Home Meds Medication Instructions Recorded Confirmed Metformin HCl 500 mg PO BID 08/31/13 10/21/18 Simvastatin 40 mg PO DAILY 08/31/13 10/21/18 Zolpidem [Ambien] 10 mg PO HS PRN 05/13/16 10/21/18 Albuterol Sulfate [Proair Hfa] 2 puff IH PRN PRN 07/26/17 10/21/18 Montelukast Sodium [Singulair] 10 mg PO HS 07/26/17 10/21/18 Denosumab [Xgeva] 120 mg SC Q30D 03/21/18 10/21/18 Omeprazole 40 mg PO DAILY 03/23/18 10/21/18 Calcium Carbonate/Vitamin D3 1 each PO DAILY 10/21/18 10/21/18 [Caltrate 600 Plus D3 Tablet] Review of Systems - Physician Review All systems were reviewed & negative as marked: Yes - Review of Systems Constitutional: absent: Fevers Respiratory: Cough, Sputum (brown). absent: SOB Cardiovascular: absent: Chest Pain, Syncope Gastrointestinal: Abdominal Pain, Nausea. absent: Diarrhea, Vomiting Musculoskeletal: Arthralgias (Left Shoulder Pain), Back Pain Neurological: Dizziness Physical Exam Vital Signs Reviewed: Yes Vital Signs Temp Pulse Resp BP Pulse Ox 11/22/18 15:00 20 11/22/18 14:34 99.0 F 93 H 20 131/86 97 Temperature: Afebrile Blood Pressure: Normal Pulse: Regular Respiratory Rate: Normal Appearance: Positive for: Well-Appearing, Non-Toxic, Comfortable Pain Distress: None Mental Status: Positive for: Alert and Oriented X 3 - Systems Exam Head: Present: Atraumatic, Normocephalic Pupils: Present: PERRL Extroacular Muscles: Present: EOMI Conjunctiva: Present: Normal Mouth: Present: Moist Mucous Membranes Neck: Present: Normal Range of Motion. No: JVD Respiratory/Chest: Present: Wheezes (Bilateral). No: Clear to Auscultation Cardiovascular: Present: Regular Rate and Rhythm Abdomen: Present: Tenderness (epigastric). No: Distention, Peritoneal Signs, Rebound, Guarding Back: Present: Normal Inspection Upper Extremity: Present: Normal Inspection. No: Cyanosis, Edema Lower Extremity: Present: Normal Inspection. No: Edema Neurological: Present: GCS=15, Speech Normal Skin: Present: Warm, Dry, Normal Color. No: Rashes Psychiatric: Present: Alert, Oriented x 3, Normal Insight, Normal Concentration Medical Decision Making ED Course and Treatment: 11/22/18 15:32 Impression: 58 year old F presents to the Emergency department complaining of productive cough, left shoulder pain and dizziness. Differential Diagnosis included but are not limited to: Asthma exacerbation Dizziness Left shoulder pain Plan: --EKG --Labs --Chest X ray --Urinalysis --Meds: Decadron, Albuterol, Morphine, Famotidine, Zofran -- Reassess and disposition Prior Visits: Notes and results from previous visits were reviewed. Progress Notes: 11/22/18 18:00 Reevaluation: Patient reports feeling better. Labs reviewed, unremarkable. Patient is stable, to be discharged home with follow up instructions with PMD - RAD Interpretation Radiology Orders: 11/22/18 14:58 CHEST PORTABLE [RAD] Stat - Medication Orders Current Medication Orders: Albuterol/Ipratropium (Duoneb 3 Mg/0.5 Mg (3 Ml) Ud) 3 ml IH Q15M [facility] Stop: 11/22/18 15:31 Last Admin: 11/22/18 15:08 Dose: 3 ml Dexamethasone 12 mg/ Sodium (Chloride) 53 mls @ 150 mls/hr IV ONCE ONE Stop: 11/22/18 15:22 Discontinued Medications Famotidine (Pepcid) 20 mg IVP STAT STA Stop: 11/22/18 15:03 Morphine Sulfate (Morphine) 4 mg IVP STAT STA Stop: 11/22/18 15:03 Ondansetron HCl (Zofran Inj) 4 mg IVP STAT STA Stop: 11/22/18 15:03 - Scribe Statement The provider has reviewed the documentation as recorded by the Dragan Hunter with Tas[facility] All medical record entries made by the Guillerminaibe were at my direction and personally dictated by me. I have reviewed the chart and agree that the record accurately reflects my personal performance of the history, physical exam, medical decision making, and the department course for this patient. I have also personally directed, reviewed, and agree with the discharge instructions and disposition. Disposition/Present on Arrival - Present on Arrival History of DVT/PE: No History of Uncontrolled Diabetes: No Urinary Catheter: No History of Decub. Ulcer: No History Surgical Site Infection Following: None - Disposition Diagnosis: Asthma, Shoulder pain, Gastritis Disposition: HOME/ ROUTINE Condition: GOOD Discharge Instructions (ExitCare): Gastritis, Asthma in Adults Prescriptions: Famotidine [Pepcid] 40 mg PO DAILY #30 tablet Ibuprofen [Motrin] 600 mg PO Q6 #20 tab Oxycodone HCl [Oxycontin] 10 mg PO Q12 #8 tab.er.12h Referrals: Olga Dumas MD [Primary Care Provider] - Follow up with primary Forms: [employer] (Irish)
[2018-11-22 15:44] LABS: BASO # 0.02 K/mm3 (0.0-2.0); BASO % 0.4 % (0.0-3.0); EOS # 0.1 (0.0-0.7); EOS % 2.4 % (1.5-5.0); HEMOGLOBIN 11.7 g/dL (12.0-16.0); LYMPH # 1.5 (1.2-3.4); LYMPH % 26.8 % (22.0-35.0); MEAN CELL VOLUME 97.4 fl (80.0-105.0); MEAN CORPUSCULAR HEMOGLOBIN 30.6 pg (25.0-35.0); MEAN CORPUSCULAR HGB CONC 31.5 g/dl (31.0-37.0); MEAN PLATELET VOLUME 8.5 fl (7.0-11.0); MONO # 0.3 (0.1-0.6); MONO % 4.8 % (1.0-6.0); RBC 3.82 10^6/uL (3.5-6.1); RED CELL DISTRIBUTION WIDTH 14.7 % (11.5-14.5); WHITE BLOOD COUNT 5.4 10^3/uL (4.5-11.0)
[2018-11-22 15:48] VITALS: RESP 18
[2018-11-22 16:05] LABS: TROPONIN I < 0.01 ng/mL
--- NOTE | 2018-11-22 16:08 | RAD ---
Date of service: 11/22/2018 HISTORY: r/o pneumonia COMPARISON: 10/21/2018 FINDINGS: LUNGS: No active pulmonary disease. PLEURA: No significant pleural effusion identified, no pneumothorax apparent. CARDIOVASCULAR: No aortic atherosclerotic calcification present. Normal cardiac size. No pulmonary vascular congestion. OSSEOUS STRUCTURES: No significant abnormalities. VISUALIZED UPPER ABDOMEN: Normal. OTHER FINDINGS: None. IMPRESSION: No active disease.
[2018-11-22 16:11] LABS: ALB/GLOB RATIO 1.2 (1.1-1.8); ALBUMIN 3.9 g/dL (3.0-4.8); ALT/SGPT 18 U/L (7-56); AST/SGOT 19 U/L (14-36); BLOOD UREA NITROGEN 16 mg/dL (7-21); CALCIUM 9.5 mg/dL (8.4-10.5); GFR NON-AFRICAN AMERICAN 46
[2018-11-22 16:55] LABS: URINE BILIRUBIN NEGATIVE (NEGATIVE); URINE BLOOD LARGE (NEGATIVE); URINE GLUCOSE (UA) NEGATIVE (NEGATIVE); URINE LEUKOCYTE ESTERASE MODERATE Leu/uL (NEGATIVE); URINE PROTEIN NEGATIVE mg/dL (<30 mg/dL); URINE UROBILINOGEN 0.2 E.U./dL (<1 E.U./dL)
[2018-11-22 16:56] LABS: URINE APPEARANCE SLIGHT-CLOUDY (CLEAR); URINE COLOR LIGHT YELLOW (YELLOW)
[2018-11-22 17:03] VITALS: BP 117/75; PULSE 69; O2SAT 97
--- NOTE | 2018-11-22 21:19 | CARD ---
APPROVED REPORT Date of service: 11/22/2018 EKG Measurement Heart [id number] 160P67 [id number] <Conclusion> Normal sinus rhythm NDSTT abnormalities CPT dated 10/21/18 little change Borderline ECG
== END 2018-11-22 18:12 | disposition home or self-care (01) ==
LOC: ED 14:29
DX: J45.909 Unspecified asthma, uncomplicated (principal); K29.70 Gastritis, unspecified, without bleeding; M25.512 Pain in left shoulder; I11.0 Hypertensive heart disease with heart failure; I50.9 Heart failure, unspecified; E11.9 Type 2 diabetes mellitus without complications; C78.00 Secondary malignant neoplasm of unspecified lung; Z85.3 Personal history of malignant neoplasm of breast; Z87.891 Personal history of nicotine dependence
CPT/HCPCS: 71045; 80053; 81001; 82550; 83615; 83735; 84484; 85025; 87086; 93005; 96374; 96375; 99284; J1100; J2270; J2405

== ENCOUNTER 2018-12-17 21:57 | Emergency (ER) | payer MEDICAID, MEDICARE ==
[2018-12-17 22:24] VITALS: BMI 31.4
--- NOTE | 2018-12-17 22:53 | ED PDOC ---
Arrival/HPI - General Chief Complaint: Dizziness/Lightheaded Time Seen by Provider: 12/17/18 22:35 Historian: Patient - History of Present Illness Narrative History of Present Illness (Text): 12/17/18 23:05 A 58 year old female, whose past medical history includes hypertension, terminal breast CA, presents to the emergency department with complaint of high blood pressure. Patient notes that she checked her blood pressure earlier today which was 149/102 and notes associated nausea, dizziness, and headache. Patient reports that these symptoms concern her. She also notes left shoulder pain which is chronic, but worsened today. Patient wants to be evaluated for the symptoms associated to the episode of high blood pressure today. Patient also notes that she took 1 Aspirin today for her symptoms. She denies fevers, chills, chest pain, shortness of breath, dyspnea on exertion, cough, abdominal pain, vomiting, diarrhea, urinary/bowel changes, or any other complaint. PMD: Dr. Dumas Time/Duration: Other (Today) Symptom Onset: Sudden Symptom Course: Unchanged Activities at Onset: Rest, Light Context: Home Past Medical History - Provider Review Nursing Documentation Reviewed: Yes - Infectious Disease Hx of Infectious Diseases: None - Tetanus Immunization Tetanus Immunization: Unknown - Cardiac Hx Cardiac Disorders: Yes Hx Congestive Heart Failure: Yes Hx Hypertension: Yes - Pulmonary Hx Respiratory Disorders: Yes Hx Asthma: Yes Hx Bronchitis: Yes Hx Emphysema: Yes Hx Sleep Apnea: Yes - Neurological Hx Neurological Disorder: Yes Hx Dementia: Yes Hx Dizziness: Yes - HEENT Hx HEENT Disorder: No - Renal Hx Renal Disorder: Yes Hx Renal Failure: Yes - Endocrine/Metabolic Hx Endocrine Disorders: Yes Hx Diabetes Mellitus Type 2: Yes - Hematological/Oncological Hx Blood Disorders: Yes Hx Cancer: Yes Hx Chemotherapy: Yes Other/Comment: METASTATIC - Integumentary Hx Dermatological Disorder: Yes - Musculoskeletal/Rheumatological Hx Musculoskeletal Disorders: Yes Hx Back Pain: Yes Hx Falls: No Hx Herniated Disk: Yes Hx Osteoarthritis: Yes Hx Unsteady Gait: Yes (CANE WALKER) - Gastrointestinal Hx Gastrointestinal Disorders: Yes (GASTRITIS) Hx Gastritis: Yes HX Swallowing Problems: Yes - Genitourinary/Gynecological Hx Genitourinary Disorders: No - Psychiatric Hx Psychophysiologic Disorder: Yes Hx Anxiety: Yes Hx Depression: Yes Hx Substance Use: No - Surgical History Hx Cholecystectomy: Yes Hx Hysterectomy: Yes Hx Orthopedic Surgery: Yes - Anesthesia Hx Anesthesia: Yes Hx Anesthesia Reactions: No Hx Malignant Hyperthermia: No - Suicidal Assessment Feels Threatened In Home Enviroment: No Family/Social History - Physician Review Nursing Documentation Reviewed: Yes Family/Social History: No Known Family HX Smoking Status: Former Smoker Hx Alcohol Use: No Hx Substance Use: No Allergies/Home Meds Allergies/Adverse Reactions: Allergies FISH Allergy (Verified 12/17/18 22:26) RASH PARTICULARLY TILAPIA strawberry Allergy (Verified 12/17/18 22:26) RASH cranberry Adverse Reaction (Verified 12/17/18 22:26) ITCHING peanut Adverse Reaction (Verified 12/17/18 22:26) RASH Home Medications: Home Meds Medication Instructions Recorded Confirmed Metformin HCl 500 mg PO BID 08/31/13 10/21/18 Simvastatin 40 mg PO DAILY 08/31/13 10/21/18 Zolpidem [Ambien] 10 mg PO HS PRN 05/13/16 10/21/18 Albuterol Sulfate [Proair Hfa] 2 puff IH PRN PRN 07/26/17 10/21/18 Montelukast Sodium [Singulair] 10 mg PO HS 07/26/17 10/21/18 Denosumab [Xgeva] 120 mg SC Q30D 03/21/18 10/21/18 Omeprazole 40 mg PO DAILY 03/23/18 10/21/18 Calcium Carbonate/Vitamin D3 1 each PO DAILY 10/21/18 10/21/18 [Caltrate 600 Plus D3 Tablet] Review of Systems - Physician Review All systems were reviewed & negative as marked: Yes - Review of Systems Constitutional: absent: Fevers Cardiovascular: absent: Chest Pain Physical Exam - Physical Exam Narrative Physical Exam (Text): 12/17/18 23:09 Constitutional: No acute distress. Head: Normocephalic. Atraumatic. Eyes: PERRL. ENT: Moist mucous membranes. Neck: Supple. Cardiovascular: Regular rate. Chest: No tenderness. Respiratory: Clear to auscultation bilaterally. GI: Soft. Nontender. Nondistended. Back: No CVA tenderness. Skin: No rash. Neurologic: Alert, no focal deficit. Vital Signs BP 12/17/18 22:15 142/90 Blood Pressure: Normal Appearance: Positive for: Well-Appearing, Non-Toxic, Comfortable Pain Distress: None Mental Status: Positive for: Alert and Oriented X 3 Medical Decision Making ED Course and Treatment: 12/17/18 23:04 Impression: A 58 year old female presents to the emergency department with a complaint of high blood pressure with associated nausea, dizziness, and headache. Plan: -- Head CT -- Chest X-ray -- Labs -- Reassess and disposition Progress Notes: EKG: NSR at [address]- T wave changes. EXAM: CT Head without Intravenous Contrast. IMPRESSION: No acute intracranial abnormality. No significant interval change from March 21, 2018. Electronically signed on Dec 18, 2018 3:50:48 AM EDT by: Roberto Warren M.D., MARICARMEN Certified By [facility] Fellowship Trained MRI and CT Specialist 12/18/18 04:09 On re-evaluation, patient feels better and is in no acute distress. I have discussed the results and plan with the patient, who expresses understanding. Patient in agreement with plan to be discharged home. Patient is stable for discharge. Patient was instructed to follow up with physician or return if symptoms worsen or new concerning symptoms arise. - Lab Interpretations I have reviewed the lab results: Yes - EKG Interpretation Interpreted by ED Physician: Yes Type: 12 lead EKG - Scribe Statement The provider has reviewed the documentation as recorded by the Scribe Kimberly Barragan Provider Scribe Attestation: All medical record entries made by the Scribe were at my direction and personally dictated by me. I have reviewed the chart and agree that the record accurately reflects my personal performance of the history, physical exam, medical decision making, and the department course for this patient. I have also personally directed, reviewed, and agree with the discharge instructions and dis position. Disposition/Present on Arrival - Present on Arrival Any Indicators Present on Arrival: No History of DVT/PE: No History of Uncontrolled Diabetes: No Urinary Catheter: No History of Decub. Ulcer: No History Surgical Site Infection Following: None - Disposition Have Diagnosis and Disposition been Completed?: Yes Diagnosis: Hypertension Disposition: HOME/ ROUTINE Disposition Time: 03:51 Patient Plan: Discharge Condition: STABLE Discharge Instructions (ExitCare): High Blood Pressure in Adults Forms: [employer] (French)
[2018-12-17 23:58] LABS: BASO # 0.03 K/mm3 (0.0-2.0); BASO % 0.5 % (0.0-3.0); EOS # 0.2 (0.0-0.7); EOS % 2.6 % (1.5-5.0); HEMOGLOBIN 11.6 g/dL (12.0-16.0); LYMPH # 1.9 (1.2-3.4); LYMPH % 32.9 % (22.0-35.0); MEAN CELL VOLUME 96.8 fl (80.0-105.0); MEAN CORPUSCULAR HEMOGLOBIN 30.9 pg (25.0-35.0); MEAN CORPUSCULAR HGB CONC 31.9 g/dl (31.0-37.0); MONO # 0.3 (0.1-0.6); MONO % 4.9 % (1.0-6.0); RBC 3.76 10^6/uL (3.5-6.1); RED CELL DISTRIBUTION WIDTH 13.8 % (11.5-14.5); WHITE BLOOD COUNT 5.8 10^3/uL (4.5-11.0)
[2018-12-18] LABS: TROPONIN I < 0.01 ng/mL
[2018-12-18 00:03] LABS: ALB/GLOB RATIO 1.3 (1.1-1.8); ALBUMIN 3.9 g/dL (3.0-4.8); ALT/SGPT 27 U/L (7-56); AST/SGOT 29 U/L (14-36); BLOOD UREA NITROGEN 20 mg/dL (7-21); CALCIUM 10.1 mg/dL (8.4-10.5); GFR NON-AFRICAN AMERICAN 51; LIPASE 90 U/L (23-300)
[2018-12-18 03:08] VITALS: BP 135/70; PULSE 88; RESP 14; O2SAT 97
--- NOTE | 2018-12-18 08:59 | CT ---
Date of service: 12/17/2018 PROCEDURE: CT HEAD WITHOUT CONTRAST. HISTORY: hypertension COMPARISON: 03/21/2018 TECHNIQUE: Axial computed tomography images were obtained through the head/brain without intravenous contrast. Radiation dose: Total exam DLP = 884.2 mGy-cm. This CT exam was performed using one or more of the following dose reduction techniques: Automated exposure control, adjustment of the mA and/or kV according to patient size, and/or use of iterative reconstruction technique. FINDINGS: HEMORRHAGE: No intracranial hemorrhage. BRAIN: No mass effect or edema. No atrophy or chronic microvascular ischemic changes. VENTRICLES: Unremarkable. No hydrocephalus. CALVARIUM: Unremarkable. PARANASAL SINUSES: Unremarkable as visualized. No significant inflammatory changes. MASTOID AIR CELLS: Unremarkable as visualized. No inflammatory changes. OTHER FINDINGS: The report concurs with the preliminary [facility] report IMPRESSION: Normal CT of the Head.
--- NOTE | 2018-12-18 10:49 | RAD ---
Date of service: 12/17/2018 HISTORY: hypertension COMPARISON: 11/22/2018 TECHNIQUE: Chest PA and lateral views FINDINGS: LUNGS: No active pulmonary disease. PLEURA: No significant pleural effusion identified. No pneumothorax apparent. CARDIOVASCULAR: No aortic atherosclerotic calcification present. Normal cardiac size. No pulmonary vascular congestion. OSSEOUS STRUCTURES: No significant abnormalities. VISUALIZED UPPER ABDOMEN: Normal. OTHER FINDINGS: None. IMPRESSION: No active disease.
--- NOTE | 2018-12-18 17:37 | CARD ---
APPROVED REPORT Date of service: 12/17/2018 EKG Measurement Heart [id number] MN 180P50 [id number] <Conclusion> Normal sinus rhythm Moderate voltage criteria for LVH, may be normal variant Borderline ECG
== END 2018-12-18 04:17 | disposition home or self-care (01) ==
LOC: ED 21:57
DX: I10 Essential (primary) hypertension (principal); E11.9 Type 2 diabetes mellitus without complications; Z85.3 Personal history of malignant neoplasm of breast; Z87.891 Personal history of nicotine dependence